=== PATIENT | male | born 1950 | race Caucasian/White ===

== ENCOUNTER 2019-05-03 23:34 | Observation (INO) ==
[2019-05-04 00:11] LABS: Basophils % 0.7 % (0.1-2.0); Eosinophils # 0.1 K/mm3 (0.0-0.4); Eosinophils % 2.1 % (0.1-12.0); Hematocrit 46.1 % (42.0-52.0); Hemoglobin 14.5 g/dL (14.1-18.0); Lymphocytes # 1.4 K/mm3 (0.7-4.5); Lymphocytes % 25.6 % (10-50); Mean Corpuscular HGB Conc 31.5 g/dL (31.8-35.4); Mean Corpuscular Volume 96.1 fl (80-94); Mean Platelet Volume 7.5 fl (7.4-10.4); Monocytes # 0.4 K/mm3 (0.1-1.0); Monocytes % 7.3 % (1.7-9.3); Neutrophils # 3.4 K/mm3 (1.8-7.8); Neutrophils % 64.3 % (37.0-80.0); Platelet Count 234 K/mm3 (142-424); Red Blood Count 4.79 M/mm3 (4.60-6.20); Red Cell Distribution Width 13.2 % (11.5-17.5); White Blood Count 5.3 K/mm3 (4.8-10.8)
--- NOTE | 2019-05-04 00:16 | Emergency Department Note ---
ED Disposition Clinical Impression: Lower gastrointestinal hemorrhage Disposition: Admitted as Observation Condition on Discharge: Good - Critical Care Critical Care Time: No Attestation: On 05/03/19, the high probability of a clinically significant, sudden or life threatening deterioration of the following system(s) required my full and direct attention, intervention and personal management. The time I documented below is in addition to time spent performing reported procedures but includes the following listed in this critical care notation. Medical Decision Making - Medical Records Medical records reviewed: Yes: I reviewed the patient's medical records. - Reza Inquiry Pt receiving controlled substance: No Vital Signs: 05/03/19 23:46 Temperature 98.2 F Temperature Source Oral Pulse Rate [Right] 79 Respiratory Rate 18 Blood Pressure [Right Arm] 160/96 H Blood Pressure Mean [Right Arm] 117 Blood Pressure Source [Right Arm] Automatic Cuff Blood Pressure Position [Right Arm] Supine 02 Sat by Pulse Oximetry 96 Oxygen Delivery Method Room Air - Lab Data Lab results reviewed: Yes: I reviewed the patient's lab results. Lab Results 05/03/19 23:54: Stool Occult Blood Negative 05/03/19 23:54: WBC 5.3, RBC 4.79, Hgb 14.5, Hct 46.1, MCV 96.1 H, MCH 30.2, MCHC 31.5 L, RDW 13.2, Plt Count 234, MPV 7.5, Neut % (Auto) 64.3, Lymph % (Auto) 25.6, [place] % (Auto) 7.3, Eos % (Auto) 2.1, Baso % (Auto) 0.7, Neut # (Auto) 3.4, Lymph # (Auto) 1.4, [place] # (Auto) 0.4, Eos # (Auto) 0.1, Baso # (Auto) 0.0 05/03/19 23:54: Sodium 138, Potassium 3.7, Chloride 101, Carbon Dioxide 30, Anion Gap 10.7, BUN 9, Creatinine 0.79, Estimated Creat Clear 62, Estimated GFR 97, Est GFR ( Amer) 117, Glucose 113 H, Calcium 9.2, Total Bilirubin 0.4, AST 34, ALT 48, Alkaline Phosphatase 96, Total Protein 7.1, Albumin 3.8, Globulin 3.3 H, Albumin/Globulin Ratio 1.2 Result diagrams: 05/03/19 23:54 05/03/19 23:54 Orders (Tests/Meds): ED MEDICATIONS Generic Name Dose Route Start Last Admin Trade Name Freq PRN Reason Stop Dose Admin Sodium Chloride 1,000 mls @ 999 mls/hr 05/03/19 23:45 05/04/19 00:02 Sod Chlor 0.9% 1000ml Bag IV 05/04/19 00:45 999 mls/hr .Q1H1M SEBASTIEN Administration Lactated Ringer's 1,000 mls @ 999 mls/hr 05/04/19 01:30 05/04/19 01:34 Lactated Ringer's 1000 Ml Bag IV 05/04/19 02:30 999 mls/hr .Q1H1M SEBASTIEN Administration Sodium Chloride 10 ml 05/04/19 01:28 Saline Flush 10ml Syringe IV 06/03/19 01:27 NEEDED PRN Maintain IV Site Discontinued Medications Generic Name Dose Route Start Last Admin Trade Name Freq PRN Reason Stop Dose Admin Diatrizoate Meglum/Diatrizoate Sod 30 ml 05/03/19 23:54 05/04/19 00:02 Gastrografin 66%-10% 30ml PO 05/03/19 23:55 30 ml ONCE ONE Administration Pantoprazole Sodium 40 mg 05/04/19 01:28 05/04/19 01:34 Protonix 40mg Vial IV 05/04/19 01:29 40 mg ONCE ONE Administration Sodium Chloride 8 ml 05/04/19 01:28 05/04/19 01:34 Saline Flush 10ml Syringe IV 05/04/19 01:29 8 ml ONCE ONE Administration ORDERS Category Date Time Status CT abdomen pelvis w con Stat Cat Scan 05/04/19 23:54 Ordered - CT Data CT Scan: Abdomen, Pelvis Time Received: 02:[address] Reviewed: Yes: I have viewed the radiologist's interpretation Preliminary Findings: Abnormal (see report ) - Physician Consults Physician Consulted: [email or web address] Reason -: Admission GI Bleed HPI - General Chief complaint: GI Bleed Stated complaint: Bleeding from rectum Time Seen by Provider: 05/04/19 00:00 Mode of Arrival: Ambulatory Source of Information: Patient, Medical Record Limitations: No Limitations Description of Symptoms (Recalled from ER Triage Doc. by RN): Pt states he is bleeding from his bowels started about 1 hour ago - History of Present Illness HPI Narrative: pt with crampy abd pain with brrb -hx of diverticulosis with last gi bleed about 1 yr ago complaint: gross hematochezia Onset (ago): hour(s) Consistency: intermittent Severity: moderate Context: history of GI bleed Associated symptoms: denies other symptoms Treatments Prior to Arrival: none - Related Data Home Medications Medication Instructions Recorded Confirmed Atorvastatin Calcium [Atorvastatin 20 mg PO HS 05/03/19 05/03/19 20mg Tab] Allergies Allergy/AdvReac Type Severity Reaction Status Date / Time ciprofloxacin [From CIPRO] Allergy Mild Verified 04/30/18 13:47 [facility] History - Hepatitis A Screen Drug use history?: No High risk sexual behaviors?: No History of sexually transmitted infection?: No Currently employed?: No Childcare worker?: No Do you have indoor plumbing?: Yes Do you have electricity?: Yes Attestation statement:: This patient has been screened for Hepatitis A risk factors. I have reviewed the patient's past medical history: Yes Medical History: Reports:: Cancer, Hypertension Denies:: Diabetes Mellitus Type 1, Diabetes Mellitus Type 2, Internal Pacemaker, Lung Disease, Seizures Other Medical History: Reports: Arthritis Other Surgeries: Yes: Colonoscopy, Colon Resection, Colostomy, Other. No: Pacemaker - Social History Smoking Status: Never smoker Alcohol Intake: never Alcohol Intake Frequency:: other Substance Use Type: denies use Occupational Status: retired Family Hx:: Diabetes, Hypertension ROS Obtained: Yes All systems reviewed & no additional complaints - Constitutional Constitutional: Denies fever(s) - Eyes Eyes: Denies change in vision - ENT Ears, Nose, Mouth, and Throat: Denies neck mass - Cardiovascular Cardiovascular: Denies chest pain - Respiratory Respiratory: No cough - Gastrointestinal Gastrointestingal: Reports: as per HPI, abdominal pain, bright red blood in stools, nausea, constant urge to pass stool - Genitourinary Male Genitourinary: Denies hematuria - Musculoskeletal Musculoskeletal: Denies joint pain - Integumentary/Breasts Skin/Breast: Denies rash - Neurologic Neurologic: Denies seizure-like activity Physical Exam - General General appearance: alert, in no apparent distress - Head Head exam: normocephalic - Eye Eye exam: Present: PERRL, EOMI - ENT ENT exam: Present: mucous membranes dry - Neck Neck exam: Present: trachea midline - Respiratory Respiratory exam: Absent: respiratory distress - Cardiovascular Cardiovascular exam: Present: regular rate, systolic murmur, +S4 - Abdominal Exam Abdominal exam: Present: soft, tenderness Abdominal tenderness: Present: epigastrium, moderate - exam: Present: normal inspection - Extremities Exam Extremities exam: Present: full ROM - Neurological Exam Neurological exam: Present: alert, oriented X3, CN II-XII intact - Psychiatric Psychiatric exam: Present: normal affect - Skin Skin exam: Absent: rash
[2019-05-04 00:34] LABS: Albumin Level 3.8 gm/dL (3.4-5.0); Albumin/Globulin Ratio 1.2 (1.1-1.8); Anion Gap 10.7 mEq/L (5-15); Bilirubin,Total 0.4 mg/dL (0.2-1.0); Calcium 9.2 mg/dL (8.5-10.1); Globulin 3.3 gm/dl (1.3-3.2); Total Protein,Serum 7.1 gm/dL (6.4-8.2)
[2019-05-04 07:08] LABS: Anion Gap 9.2 mEq/L (5-15); Calcium 8.3 mg/dL (8.5-10.1)
[2019-05-04 07:25] LABS: Basophils % 0.4 % (0.1-2.0); Eosinophils % 0.5 % (0.1-12.0); Hematocrit 37.7 % (42.0-52.0); Lymphocytes # 0.8 K/mm3 (0.7-4.5); Lymphocytes % 13.2 % (10-50); Mean Corpuscular HGB Conc 32.2 g/dL (31.8-35.4); Mean Corpuscular Volume 95.6 fl (80-94); Mean Platelet Volume 7.9 fl (7.4-10.4); Monocytes # 0.3 K/mm3 (0.1-1.0); Monocytes % 5.1 % (1.7-9.3); Neutrophils % 80.8 % (37.0-80.0); Platelet Count 193 K/mm3 (142-424); Red Blood Count 3.95 M/mm3 (4.60-6.20); Red Cell Distribution Width 13.3 % (11.5-17.5); White Blood Count 6.2 K/mm3 (4.8-10.8)
--- NOTE | 2019-05-04 07:28 | Pharmacy Consult Notes ---
[facility] Pharmacy VTE Monitoring - Patient Demographics Admission date: 05/04/19 Report Date: 05/04/19 Time: 07:28 Allergies/Adverse Reactions: Patient Allergies ciprofloxacin [From CIPRO] Allergy (Mild, Verified 04/30/18 13:47) Height: 1.65 m Weight: 63.304 kg Patient Problems: Current Active Problems (Updated 05/04/19 @ 02:40 by Scotty Portillo MD) Lower gastrointestinal hemorrhage (Acute) - VTE Risk Labs: VTE Related Lab Results Hgb 14.5 g/dL (14.1-18.0) 05/03/19 23:54 Hct 46.1 % (42.0-52.0) 05/03/19 23:54 Plt Count 234 K/mm3 (142-424) 05/03/19 23:54 BUN 8 mg/dL (7-18) 05/04/19 06:22 Creatinine 0.73 mg/dL (0.70-1.30) 05/04/19 06:22 Estimated Creat Clear 62 mL/min (50-200) 05/04/19 06:22 Was VTE Risk Assessment Performed: Yes VTE Score: 3 VTE Risk Level: Low Risk Clinical Trial Participant: No - Prophylaxis VTE Prophylaxis Ordered?: Yes Types of VTE Prophylaxis: TEDS Knee High
--- NOTE | 2019-05-04 08:27 | History & Physical Report ---
*Admission Date: 05/04/19 <Desiree Cui - 05/04/19 08:27> *Chief complaint: Rectal bleeding <Desiree Cui - 05/04/19 08:27> *History of present illness: HPI Rectal Bleeding Mr. Oliveira is a 68-year-old male patient of Dr. Bernardino Malcolm with a history of arthritis, and hyperlipidemia. He presented to [facility] emergency room last p.m. after experiencing bloody stools. He had some associated abdominal discomfort. He denies nausea and vomiting. In the emergency room patient was given 2 L bolus of IV fluids and started on IV Protonix. He was then admitted for further evaluation and treatment. Patient has a very long-standing history of intermittent rectal bleeding. In December 2006 he actually underwent colonoscopy at the [facility] to evaluate rectal bleeding and had a rectal polyp. He was admitted in July 2007 and I performed upper endoscopy and colonoscopy and he had some diverticulosis. In November 2010 he apparently underwent a low anterior resection with apparent coloanal anastomosis by Dr. Pollo Whitley for apparent rectal carcinoma. He did not have radiation. He did have a diverting loop ileostomy which was taken down several months later. He then developed an obstruction at the site of the loop ileostomy and Dr. Sy performed laparotomy in October 2011. He had subsequent colonoscopies by Dr. Sy. Dr. Lucas performed colonoscopy in November 2016 at which time he had a s errated adenoma. With follow-up by Dr. Lucas he is noted to have ongoing issues with his bowels with bowel irregularity with intermittent constipation and fecal urgency. Patient was usually been intolerant of any bowel regimen. Plan was tentatively for a follow-up colonoscopy in early 2018 due to the history of serrated adenoma on colonoscopy last November. However, on 03/20 patient had developed what he described as significant rectal bleeding. He had painless bleeding and had significant fresh looking blood on the tissue paper. He therefore went to the emergency department where he was evaluated. Stool PCR was negative. He had a CT scan which showed only postsurgical changes from his prior operations. Patient did relate that he had recently been taking Celebrex. He was referred for surgical evaluation. He had a repeat colonoscopy on 04/13/2018 which revealed some diverticulosis. He had a low coloanal anastomosis with visible staple line and palpable staple line approximately 3 cm from the anal verge as well as some internal hemorrhoids. There were no polyps. This a.m. patient is feeling somewhat better. He describes abdominal soreness. He has had no nausea or vomiting. He is unsure if his bowels have moved. Nursing staff states he did have a stool which was maroon in color. He is voiding without difficulty. <CuiDesiree 05/04/19 09:04> [facility] History Medical History: Reports:: Cancer (COLON), Hyperlipidemia, Hypertension Denies:: Atherosclerotic Heart Disease, Diabetes Mellitus Type 1, Diabetes Mellitus Type 2, Internal Pacemaker, Lung Disease, Seizures <Cui,Desiree 05/04/19 09:04> *Have you ever received a pneumonia vaccine?: Yes <SeeDesiree 05/04/19 08:27> *Have you received a flu vaccine this season?: Yes <SeeDesiree 05/04/19 08:27> Other Medical History: Reports: Arthritis <SeeDesiree 05/04/19 08:27> Other Surgeries: Yes: Appendectomy, Colonoscopy, Colon Resection, Colostomy, Other. No: Pacemaker <SeeDesiree 05/04/19 08:27> Amputation: No <Desiree Cui 05/04/19 08:27> Fractures: No <Desiree Cui 05/04/19 08:27> - *Social History Smoking Status: Never smoker <SeeDesiree 05/04/19 08:27> Alcohol Intake: never <Desiree Cui 05/04/19 08:27> Alcohol Intake Frequency:: other <Desiree Cui 05/04/19 08:27> Substance Use Type: denies use <Desiree Cui 05/04/19 08:27> *Occupational Status:: retired <Desiree Cui 05/04/19 08:27> *Travel in the last 8 weeks: None <Desiree Cui 05/04/19 08:27> - Psychiatric History Expresses thoughts of harming self/others: None <Desiree Cui 05/04/19 08:27> Suicide Plan Description: No Plan <Desiree Cui 05/04/19 08:27> Family Hx:: Diabetes, Hypertension <Desiree Cui - 05/04/19 08:27> Review of Systems - Constitutional Reports weight loss, Denies chills, Denies headache(s) <Desiree Ciu 05/04/19 09:04> - ENT Reports nasal congestion, Denies ear pain, Denies sore throat <SeeDesiree 05/04/19 09:04> - *Cardiovascular Denies chest pain, Denies shortness of breath <SeeDesiree 05/04/19 09:04> - *Respiratory Denies chest congestion, Denies cough, Denies shortness of breath <SeeDesiree 05/04/19 09:04> - *Genitourinary Denies difficulty urinating <Desiree Cui 05/04/19 09:04> - *Musculoskeletal Reports joint pain (Neck), Denies abnormal walking <Desiree Cui 05/04/19 09:04> - *Neurologic Reports dizziness, Denies abnormal walking, Denies seizure-like activity, Denies localized weakness, Denies seizure-like activity <Desiree Cui 05/04/19 09:04> Meds Home Medications Medication Instructions Recorded Confirmed Type Atorvastatin Calcium [Atorvastatin 20 mg PO HS 05/03/19 05/04/19 History 20mg Tab] Acetaminophen [Acetaminophen 325mg 650 mg PO Q6HP PRN 05/04/19 05/04/19 History tab] Calcium Carbonate/Vitamin D3 1 each PO DAILY 05/04/19 05/04/19 History [Calcium 500 + Vit D Caplet] Ergocalciferol (Vitamin D2) 400 unit PO DAILY 05/04/19 05/04/19 History [Vitamin D] Gluc [place]/Chondro [place] A/Vit C/Mn 1 each PO DAILY 05/04/19 05/04/19 History [Glucosamine Chondroitin Tab] Multivitamin [Daily Multiple 1 each PO DAILY 05/04/19 05/04/19 History Vitamin] Pumpkin Seed Oil/Saw [place] [Saw 320 mg PO DAILY 05/04/19 05/04/19 History [place] 160 mg Softgel] <Vladimir Barksdale - 05/04/19 09:59> Allergies Allergy/AdvReac Type Severity Reaction Status Date / Time ciprofloxacin [From CIPRO] Allergy Mild Verified 04/30/18 13:47 <Vladimir Barksdale - 05/04/19 09:59> Exam Vital signs and Labs for Last 24 Hours: Temp Pulse Resp BP Pulse Ox 98.6 F 72 18 140/91 H 95 05/04/19 08:00 05/04/19 08:00 05/04/19 08:00 05/04/19 08:00 05/04/19 08:48 Laboratory Results - last 24 hr 05/03/19 23:54: Stool Occult Blood Negative 05/03/19 23:54: WBC 5.3, RBC 4.79, Hgb 14.5, Hct 46.1, MCV 96.1 H, MCH 30.2, MCHC 31.5 L, RDW 13.2, Plt Count 234, MPV 7.5, Neut % (Auto) 64.3, Lymph % (Auto) 25.6, [place] % (Auto) 7.3, Eos % (Auto) 2.1, Baso % (Auto) 0.7, Neut # (Auto) 3.4, Lymph # (Auto) 1.4, [place] # (Auto) 0.4, Eos # (Auto) 0.1, Baso # (Auto) 0.0 05/03/19 23:54: Sodium 138, Potassium 3.7, Chloride 101, Carbon Dioxide 30, Anion Gap 10.7, BUN 9, Creatinine 0.79, Estimated Creat Clear 62, Estimated GFR 97, Est GFR ( Amer) 117, Glucose 113 H, Calcium 9.2, Total Bilirubin 0.4, AST 34, ALT 48, Alkaline Phosphatase 96, Total Protein 7.1, Albumin 3.8, Globulin 3.3 H, Albumin/Globulin Ratio 1.2 05/04/19 06:03: WBC 6.2, RBC 3.95 L, Hgb 12.2 L D, Hct 37.7 L, MCV 95.6 H, MCH 30.7, MCHC 32.2, RDW 13.3, Plt Count 193, MPV 7.9, Neut % (Auto) 80.8 H, Lymph % (Auto) 13.2, [place] % (Auto) 5.1, Eos % (Auto) 0.5, Baso % (Auto) 0.4, Neut # (Auto) 5.0, Lymph # (Auto) 0.8, [place] # (Auto) 0.3, Eos # (Auto) 0.0, Baso # (Auto) 0.0 05/04/19 06:22: Sodium 140, Potassium 4.2, Chloride 106, Carbon Dioxide 29, Anion Gap 9.2, BUN 8, Creatinine 0.73, Estimated Creat Clear 62, Estimated GFR 106, Est GFR ( Amer) 129, Glucose 95, Calcium 8.3 L <Vladimir Barksdale - 05/04/19 09:59> Temp Pulse Resp BP Pulse Ox 98.6 F 72 18 140/91 H 95 05/04/19 08:00 05/04/19 08:00 05/04/19 08:00 05/04/19 08:00 05/04/19 08:00 Laboratory Results - last 24 hr 05/03/19 23:54: Stool Occult Blood Negative 05/03/19 23:54: WBC 5.3, RBC 4.79, Hgb 14.5, Hct 46.1, MCV 96.1 H, MCH 30.2, MCHC 31.5 L, RDW 13.2, Plt Count 234, MPV 7.5, Neut % (Auto) 64.3, Lymph % (Auto) 25.6, [place] % (Auto) 7.3, Eos % (Auto) 2.1, Baso % (Auto) 0.7, Neut # (Auto) 3.4, Lymph # (Auto) 1.4, [place] # (Auto) 0.4, Eos # (Auto) 0.1, Baso # (Auto) 0.0 05/03/19 23:54: Sodium 138, Potassium 3.7, Chloride 101, Carbon Dioxide 30, Anion Gap 10.7, BUN 9, Creatinine 0.79, Estimated Creat Clear 62, Estimated GFR 97, Est GFR ( Amer) 117, Glucose 113 H, Calcium 9.2, Total Bilirubin 0.4, AST 34, ALT 48, Alkaline Phosphatase 96, Total Protein 7.1, Albumin 3.8, Globulin 3.3 H, Albumin/Globulin Ratio 1.2 05/04/19 06:03: WBC 6.2, RBC 3.95 L, Hct 37.7 L, MCV 95.6 H, MCH 30.7, MCHC 32.2, RDW 13.3, Plt Count 193, MPV 7.9, Neut % (Auto) 80.8 H, Lymph % (Auto) 13.2, [place] % (Auto) 5.1, Eos % (Auto) 0.5, Baso % (Auto) 0.4, Neut # (Auto) 5.0, Lymph # (Auto) 0.8, [place] # (Auto) 0.3, Eos # (Auto) 0.0, Baso # (Auto) 0.0 05/04/19 06:22: Sodium 140, Potassium 4.2, Chloride 106, Carbon Dioxide 29, Anion Gap 9.2, BUN 8, Creatinine 0.73, Estimated Creat Clear 62, Estimated GFR 106, Est GFR ( Amer) 129, Glucose 95, Calcium 8.3 L <Desiree Cui - 05/04/19 08:27> I & O for Last 24 hours: Intake & Output 05/01/19 05/02/19 05/03/19 05/04/19 11:59 11:59 11:59 11:59 Intake Total 1999 Output Total 250 / 250 Balance 1750 / 1750 Weight 139 lb 9 oz <Vladimir Barksdale Bernardino - 05/04/19 09:59> Intake & Output 05/01/19 05/02/19 05/03/19 05/04/19 11:59 11:59 11:59 11:59 Intake Total 1999 Balance 1999 Weight 139 lb 9 oz <Desiree Cui - 05/04/19 08:27> Radiology Reports for the Last 24 Hours: 05/04/2019 CT of the abdomen pelvis IMPRESSION: No acute abdominal or pelvic findings. <Desiree Cui - 05/04/19 09:04> - Constitutional no acute distress <Desiree Cui 05/04/19 09:04> - *Routine HEENT Exam Head: Present: normocephalic, atraumatic <Desiree Cui - 05/04/19 09:04> Eye: Present: PERRL. Absent: conjunctival icterus, scleral injection <Desiree Cui - 05/04/19 09:04> ENT: Present: mucous membranes moist, oropharynx clear <Desiree Cui 05/04/19 09:04> - *Routine Neck Exam Present: supple. Absent: carotid bruit, lymphadenopathy, thyromegaly <Cui,[facility] 05/04/19 09:04> - *Routine Respiratory Exam Present: CTA bilaterally (Anteriorly and posteriorly) <[facility] 05/04/19 09:04> - *Routine Cardiovascular Exam Present: RRR [facility]> - *Routine Abdominal Exam Present: soft, normoactive bowel sounds, tenderness (Epigastrium and lower quads or sore with palpation). Absent: distended, guarding <Cui,[facility] 05/04/19 09:04> - *Routine Extremities Exam Present: pulses intact. Absent: edema, calf tenderness <Cui,[facility] 05/04/19 09:04> - *Routine Neurological Exam Present: alert, oriented X3 <[facility] 05/04/19 09:04> Assessment and Plan (1) Lower gastrointestinal hemorrhage Current visit: Yes Status: Acute Category: Medical Code(s): K92.2 - Gastrointestinal hemorrhage, unspecified (2) Abdominal pain Current visit: Yes Status: Acute Category: Medical Code(s): R10.9 - Unspecified abdominal pain (3) Diverticulosis Current visit: Yes Status: Chronic Category: Medical Code(s): K57.90 - Diverticulosis of intestine, part unspecified, without perforation or abscess without bleeding <Vladimir Barksdale 05/04/19 09:59> (1) Lower gastrointestinal hemorrhage Current visit: Yes Status: Acute Category: Medical Code(s): K92.2 - Gastrointestinal hemorrhage, unspecified (2) Abdominal pain Current visit: Yes Status: Acute Category: Medical Code(s): R10.9 - Unspecified abdominal pain (3) Diverticulosis Current visit: Yes Status: Chronic Category: Medical Code(s): K57.90 - Diverticulosis of intestine, part unspecified, without perforation or abscess without bleeding <[facility] 05/04/19 08:56> - Assessment and plan all Dx Assessment and Plan for all problems:: Patient seen and examined. Concur with H&P and plan as outlined. <Vladimir Barksdale 05/04/19 09:59> Surgical consult. Will repeat H&H at 12 noon. If stable patient will probably be discharged. <Desiree Cui - 05/04/19 09:04>
[2019-05-04 08:52] LABS: Hemoglobin 12.2 g/dL (14.1-18.0)
--- NOTE | 2019-05-04 09:21 | Consult Report ---
*Admission Date: 05/04/19 *Reason for consult:: Rectal bleeding *History of present illness: Patient is very well-known to me. He has a very long-standing history of intermittent rectal bleeding for greater than a decade. In December 2006 he underwent colonoscopy at the [facility] to evaluate rectal bleeding and had a rectal polyp. He was admitted to [facility] in July 2007 and I performed upper endoscopy and colonoscopy and he had some diverticulosis. In November 2010 he apparently underwent a low anterior resection with apparent coloanal anastomosis by Dr. Pollo Whitley for apparent rectal carcinoma. He did not have radiation. He did have a diverting loop ileostomy which was taken down several months later in 2010. Dr. Sy performed laparotomy later that year in October 2011 due to patient developing bowel obstruction at loop ileostomy takedown site. He had subsequent colonoscopies by Dr. Sy. I had performed colonoscopy in November 2016 at which time he had a serrated adenoma. In March 2018 patient had developed what he described as significant painless rectal bleeding described as fresh looking blood on the tissue paper. He had yet another colonoscopy on 04/13/2018 which revealed some diverticulosis and minimal hemorroids. He had a low coloanal anastomosis with visible staple line and palpable staple line approximately 2-3 cm from the anal verge. There were no polyps. He presented to the emergency department last night with rectal bleeding. He denies any significant pain. He does describe some "uneasiness". This seems to be consistent with possible left lower quadrant cramping. Review of Systems - Review of Systems Review of systems:: pertinent systems reviewed and negative unless documented below - *Neurologic Reports dizziness, Denies abnormal walking, Denies seizure-like activity, Denies localized weakness, Denies headache(s), Denies seizure-like activity [facility] History Medical History: Reports:: Cancer (COLON), Hyperlipidemia, Hypertension Denies:: Atherosclerotic Heart Disease, Diabetes Mellitus Type 1, Diabetes Mellitus Type 2, Internal Pacemaker, Lung Disease, Seizures *Have you ever received a pneumonia vaccine?: Yes *Have you received a flu vaccine this season?: Yes Other Medical History: Reports: Arthritis Other Surgeries: Yes: Appendectomy, Colonoscopy, Colon Resection, Colostomy, Other. No: Pacemaker Amputation: No Fractures: No - *Social History Smoking Status: Never smoker Alcohol Intake: never Alcohol Intake Frequency:: other Substance Use Type: denies use *Occupational Status:: retired *Travel in the last 8 weeks: None - Psychiatric History Expresses thoughts of harming self/others: None Suicide Plan Description: No Plan Family Hx:: Diabetes, Hypertension Meds Home Medications Medication Instructions Recorded Confirmed Type Atorvastatin Calcium [Atorvastatin 20 mg PO HS 05/03/19 05/04/19 History 20mg Tab] Acetaminophen [Acetaminophen 325mg 650 mg PO Q6HP PRN 05/04/19 05/04/19 History tab] Calcium Carbonate/Vitamin D3 1 each PO DAILY 05/04/19 05/04/19 History [Calcium 500 + Vit D Caplet] Ergocalciferol (Vitamin D2) 400 unit PO DAILY 05/04/19 05/04/19 History [Vitamin D] Gluc [place]/Chondro [place] A/Vit C/Mn 1 each PO DAILY 05/04/19 05/04/19 History [Glucosamine Chondroitin Tab] Multivitamin [Daily Multiple 1 each PO DAILY 05/04/19 05/04/19 History Vitamin] Pumpkin Seed Oil/Saw [place] [Saw 320 mg PO DAILY 05/04/19 05/04/19 History [place] 160 mg Softgel] Allergies Allergy/AdvReac Type Severity Reaction Status Date / Time ciprofloxacin [From CIPRO] Allergy Mild Verified 04/30/18 13:47 Exam Vital signs and Labs for Last 24 Hours: Temp Pulse Resp BP Pulse Ox 98.6 F 72 18 140/91 H 95 05/04/19 08:00 05/04/19 08:00 05/04/19 08:00 05/04/19 08:00 05/04/19 08:48 Laboratory Results - last 24 hr 05/03/19 23:54: Stool Occult Blood Negative 05/03/19 23:54: WBC 5.3, RBC 4.79, Hgb 14.5, Hct 46.1, MCV 96.1 H, MCH 30.2, MCHC 31.5 L, RDW 13.2, Plt Count 234, MPV 7.5, Neut % (Auto) 64.3, Lymph % (Auto) 25.6, [place] % (Auto) 7.3, Eos % (Auto) 2.1, Baso % (Auto) 0.7, Neut # (Auto) 3.4, Lymph # (Auto) 1.4, [place] # (Auto) 0.4, Eos # (Auto) 0.1, Baso # (Auto) 0.0 05/03/19 23:54: Sodium 138, Potassium 3.7, Chloride 101, Carbon Dioxide 30, Anion Gap 10.7, BUN 9, Creatinine 0.79, Estimated Creat Clear 62, Estimated GFR 97, Est GFR ( Amer) 117, Glucose 113 H, Calcium 9.2, Total Bilirubin 0.4, AST 34, ALT 48, Alkaline Phosphatase 96, Total Protein 7.1, Albumin 3.8, Globulin 3.3 H, Albumin/Globulin Ratio 1.2 05/04/19 06:03: WBC 6.2, RBC 3.95 L, Hgb 12.2 L D, Hct 37.7 L, MCV 95.6 H, MCH 30.7, MCHC 32.2, RDW 13.3, Plt Count 193, MPV 7.9, Neut % (Auto) 80.8 H, Lymph % (Auto) 13.2, [place] % (Auto) 5.1, Eos % (Auto) 0.5, Baso % (Auto) 0.4, Neut # (Auto) 5.0, Lymph # (Auto) 0.8, [place] # (Auto) 0.3, Eos # (Auto) 0.0, Baso # (Auto) 0.0 05/04/19 06:22: Sodium 140, Potassium 4.2, Chloride 106, Carbon Dioxide 29, Anion Gap 9.2, BUN 8, Creatinine 0.73, Estimated Creat Clear 62, Estimated GFR 106, Est GFR ( Amer) 129, Glucose 95, Calcium 8.3 L I & O for Last 24 hours: Intake & Output 05/01/19 05/02/19 05/03/19 05/04/19 11:59 11:59 11:59 11:59 Intake Total 1999 Output Total 250 / 250 Balance 1750 / 1750 Weight 139 lb 9 oz - *Routine HEENT Exam Head: Present: normocephalic Eye: Present: EOMI, PERRL ENT: Present: mucous membranes moist - *Routine Neck Exam Present: supple. Absent: lymphadenopathy - *Routine Respiratory Exam Present: CTA bilaterally - *Routine Cardiovascular Exam Present: RRR - *Routine Abdominal Exam Present: soft, normoactive bowel sounds. Absent: tenderness - *Routine Rectal Exam Comments: Rectal examination reveals some gross maroon blood at the anus. Digital examination reveals markedly diminished sphincter tone which is patient's baseline due to prior surgery. There are no palpable masses. There is some maroon liquid stool noted digitally. - *Routine Extremities Exam Absent: cyanosis, clubbing, edema - *Routine Skin Exam Present: warm. Absent: rash - *Routine Neurological Exam Present: alert, oriented X3 - Detailed Eye Exam Eyelids: Left normal inspection Results - Labs 05/04/19 06:03 05/04/19 06:22 Laboratory Results - last 24 hr 05/03/19 23:54: Stool Occult Blood Negative 05/03/19 23:54: WBC 5.3, RBC 4.79, Hgb 14.5, Hct 46.1, MCV 96.1 H, MCH 30.2, MCHC 31.5 L, RDW 13.2, Plt Count 234, MPV 7.5, Neut % (Auto) 64.3, Lymph % (Auto) 25.6, [place] % (Auto) 7.3, Eos % (Auto) 2.1, Baso % (Auto) 0.7, Neut # (Auto) 3.4, Lymph # (Auto) 1.4, [place] # (Auto) 0.4, Eos # (Auto) 0.1, Baso # (Auto) 0.0 05/03/19 23:54: Sodium 138, Potassium 3.7, Chloride 101, Carbon Dioxide 30, Anion Gap 10.7, BUN 9, Creatinine 0.79, Estimated Creat Clear 62, Estimated GFR 97, Est GFR ( Amer) 117, Glucose 113 H, Calcium 9.2, Total Bilirubin 0.4, AST 34, ALT 48, Alkaline Phosphatase 96, Total Protein 7.1, Albumin 3.8, Globu brady 3.3 H, Albumin/Globulin Ratio 1.2 05/04/19 06:03: WBC 6.2, RBC 3.95 L, Hgb 12.2 L D, Hct 37.7 L, MCV 95.6 H, MCH 30.7, MCHC 32.2, RDW 13.3, Plt Count 193, MPV 7.9, Neut % (Auto) 80.8 H, Lymph % (Auto) 13.2, [place] % (Auto) 5.1, Eos % (Auto) 0.5, Baso % (Auto) 0.4, Neut # (Auto) 5.0, Lymph # (Auto) 0.8, [place] # (Auto) 0.3, Eos # (Auto) 0.0, Baso # (Auto) 0.0 05/04/19 06:22: Sodium 140, Potassium 4.2, Chloride 106, Carbon Dioxide 29, Anion Gap 9.2, BUN 8, Creatinine 0.73, Estimated Creat Clear 62, Estimated GFR 106, Est GFR ( Amer) 129, Glucose 95, Calcium 8.3 L Assessment and Plan (1) Lower gastrointestinal hemorrhage Current visit: Yes Status: Acute Category: Medical Code(s): K92.2 - Gastrointestinal hemorrhage, unspecified (2) Abdominal pain Current visit: Yes Status: Acute Category: Medical Code(s): R10.9 - Unspecified abdominal pain (3) Diverticulosis Current visit: Yes Status: Chronic Category: Medical Code(s): K57.90 - Diverticulosis of intestine, part unspecified, without perforation or abscess without bleeding - Assessment and plan all Dx Assessment and Plan for all problems:: Patient does feel somewhat better since admission. I would plan for expectant observant management at this time. I will go ahead and give him a clear liquid diet. If he shows no additional signs of rectal bleeding he possibly may be able to be discharged for outpatient follow-up as early as this afternoon or by tomorrow morning. However, if he has ongoing bleeding he may require further inpatient observation. I would not pursue urgent colonoscopy at this time as an inpatient.
[2019-05-04 12:48] LABS: Hematocrit 37.7 % (42.0-52.0); Hemoglobin 11.9 g/dL (14.1-18.0)
--- NOTE | 2019-05-04 16:12 | Progress Note ---
Subjective Patient reports: no new complaints Narrative: Patient has had a couple of more bloody bowel movements today. Exam Vital signs and Labs for Last 24 Hours: Temp Pulse Resp BP Pulse Ox 98.5 F 65 18 136/90 97 05/04/19 16:00 05/04/19 16:00 05/04/19 16:00 05/04/19 16:00 05/04/19 16:00 Laboratory Results - last 24 hr 05/03/19 23:54: Stool Occult Blood Negative 05/03/19 23:54: WBC 5.3, RBC 4.79, Hgb 14.5, Hct 46.1, MCV 96.1 H, MCH 30.2, MCHC 31.5 L, RDW 13.2, Plt Count 234, MPV 7.5, Neut % (Auto) 64.3, Lymph % (Auto) 25.6, [place] % (Auto) 7.3, Eos % (Auto) 2.1, Baso % (Auto) 0.7, Neut # (Auto) 3.4, Lymph # (Auto) 1.4, [place] # (Auto) 0.4, Eos # (Auto) 0.1, Baso # (Auto) 0.0 05/03/19 23:54: Sodium 138, Potassium 3.7, Chloride 101, Carbon Dioxide 30, Anion Gap 10.7, BUN 9, Creatinine 0.79, Estimated Creat Clear 62, Estimated GFR 97, Est GFR ( Amer) 117, Glucose 113 H, Calcium 9.2, Total Bilirubin 0.4, AST 34, ALT 48, Alkaline Phosphatase 96, Total Protein 7.1, Albumin 3.8, Globulin 3.3 H, Albumin/Globulin Ratio 1.2 05/04/19 06:03: WBC 6.2, RBC 3.95 L, Hgb 12.2 L D, Hct 37.7 L, MCV 95.6 H, MCH 30.7, MCHC 32.2, RDW 13.3, Plt Count 193, MPV 7.9, Neut % (Auto) 80.8 H, Lymph % (Auto) 13.2, [place] % (Auto) 5.1, Eos % (Auto) 0.5, Baso % (Auto) 0.4, Neut # (Auto) 5.0, Lymph # (Auto) 0.8, [place] # (Auto) 0.3, Eos # (Auto) 0.0, Baso # (Auto) 0.0 05/04/19 06:22: Sodium 140, Potassium 4.2, Chloride 106, Carbon Dioxide 29, Anion Gap 9.2, BUN 8, Creatinine 0.73, Estimated Creat Clear 62, Estimated GFR 106, Est GFR ( Amer) 129, Glucose 95, Calcium 8.3 L 05/04/19 12:30: Hgb 11.9 L, Hct 37.7 L I & O for Last 24 hours: Intake & Output 05/02/19 05/03/19 05/04/19 05/05/19 11:59 11:59 11:59 11:59 Intake Total 1999 / 1999 720 / 720 Output Total 650 / 650 250 / 250 Balance 1350 / 1350 470 / 470 Weight 139 lb 8.983 oz - *Routine Abdominal Exam Present: soft Progress Note: A&P (1) Lower gastrointestinal hemorrhage Status: Acute Current Visit: Yes (2) Abdominal pain Status: Acute Current Visit: Yes (3) Diverticulosis Status: Chronic Current Visit: Yes Assessment and Plan for All Diagnoses:: His hemoglobin has been stable today. Okay to cautiously advance diet tonight. If he remains stable he may but will be discharged tomorrow for continued outpatient follow-up. He may require follow-up colonoscopy, however, colonoscopy 1 year ago revealed only minimal internal hemorrhoids and some diverticulosis. Due to the character of the blood, maroon-colored, he may require outpatient small bowel evaluation for potential intermittent source of blood loss.
[2019-05-04 18:36] LABS: Hematocrit 36.5 % (42.0-52.0); Hemoglobin 11.2 g/dL (14.1-18.0)
[2019-05-05 07:40] LABS: Basophils % 0.4 % (0.1-2.0); Eosinophils # 0.1 K/mm3 (0.0-0.4); Eosinophils % 1.1 % (0.1-12.0); Hematocrit 38.4 % (42.0-52.0); Hemoglobin 12.2 g/dL (14.1-18.0); Lymphocytes # 0.8 K/mm3 (0.7-4.5); Lymphocytes % 15.1 % (10-50); Mean Corpuscular HGB Conc 31.8 g/dL (31.8-35.4); Mean Corpuscular Volume 95.5 fl (80-94); Mean Platelet Volume 8.1 fl (7.4-10.4); Monocytes # 0.3 K/mm3 (0.1-1.0); Monocytes % 5.7 % (1.7-9.3); Neutrophils # 3.9 K/mm3 (1.8-7.8); Neutrophils % 77.7 % (37.0-80.0); Platelet Count 205 K/mm3 (142-424); Red Blood Count 4.03 M/mm3 (4.60-6.20); Red Cell Distribution Width 13.3 % (11.5-17.5)
--- NOTE | 2019-05-05 08:34 | Progress Note ---
Subjective Patient reports: no new complaints (Some "clot" passed with last bowel movement) Exam Vital signs and Labs for Last 24 Hours: Temp Pulse Resp BP Pulse Ox 97.9 F 80 18 111/70 97 05/05/19 07:45 05/05/19 07:45 05/05/19 07:45 05/05/19 07:45 05/05/19 07:45 Laboratory Results - last 24 hr 05/04/19 06:03: Hgb 12.2 L D 05/04/19 12:30: Hgb 11.9 L, Hct 37.7 L 05/04/19 18:23: Hgb 11.2 L, Hct 36.5 L 05/05/19 05:19: WBC 5.0, RBC 4.03 L, Hgb 12.2 L, Hct 38.4 L, MCV 95.5 H, MCH 30.3, MCHC 31.8, RDW 13.3, Plt Count 205, MPV 8.1, Neut % (Auto) 77.7, Lymph % (Auto) 15.1, [place] % (Auto) 5.7, Eos % (Auto) 1.1, Baso % (Auto) 0.4, Neut # (Auto) 3.9, Lymph # (Auto) 0.8, [place] # (Auto) 0.3, Eos # (Auto) 0.1, Baso # (Auto) 0.0 I & O for Last 24 hours: Intake & Output 05/02/19 05/03/19 05/04/19 05/05/19 11:59 11:59 11:59 11:59 Intake Total 1999 / 1999 2519 / 2519 Output Total 650 / 650 550 / 550 Balance 1350 / 1350 1968 / 1968 Weight 139 lb 8.983 oz 130 lb 6 oz - Constitutional no acute distress - *Routine Respiratory Exam Absent: respiratory distress - *Routine Cardiovascular Exam Present: RRR Progress Note: A&P (1) Lower gastrointestinal hemorrhage Status: Acute Assessment and plan: No sign of active hemorrhage. Hemoglobin improved this morning. Source still undefined. Okay for discharge home from surgical standpoint with close outpatient follow-up [Dr. Lucas]. Ongoing management likely to include evaluation for possible "upper source". Would continue proton pump inhibitor and consider adding Carafate until evaluation regarding possible "upper source" complete. Current Visit: Yes (2) Abdominal pain Status: Acute Current Visit: Yes (3) Diverticulosis Status: Chronic Current Visit: Yes
--- NOTE | 2019-05-05 11:44 | Progress Note ---
Internal Medicine - PN: Subj *Date: 05/05/19 *Time: 11:42 Interval history: The patient is interviewed in the chart is reviewed. Surgical notes are reviewed. The patient reports that he still has some bloody stool. His H&H appears stable at this point, however. He is cleared surgically for discharge. The patient does seem a little concerned about discharge and states that he will return if his bloody bowel movement increases. Exam Vital signs and Labs for Last 24 Hours: Temp Pulse Resp BP Pulse Ox 97.9 F 80 18 111/70 97 05/05/19 07:45 05/05/19 07:45 05/05/19 07:45 05/05/19 07:45 05/05/19 07:45 Laboratory Results - last 24 hr 05/04/19 12:30: Hgb 11.9 L, Hct 37.7 L 05/04/19 18:23: Hgb 11.2 L, Hct 36.5 L 05/05/19 05:19: WBC 5.0, RBC 4.03 L, Hgb 12.2 L, Hct 38.4 L, MCV 95.5 H, MCH 30.3, MCHC 31.8, RDW 13.3, Plt Count 205, MPV 8.1, Neut % (Auto) 77.7, Lymph % (Auto) 15.1, [place] % (Auto) 5.7, Eos % (Auto) 1.1, Baso % (Auto) 0.4, Neut # (Auto) 3.9, Lymph # (Auto) 0.8, [place] # (Auto) 0.3, Eos # (Auto) 0.1, Baso # (Auto) 0.0 I & O for Last 24 hours: Intake & Output 05/02/19 05/03/19 05/04/19 05/05/19 11:59 11:59 11:59 11:59 Intake Total 1999 2519 / 2519 Output Total 650 / 650 550 / 550 Balance 1350 / 1350 1968 / 1968 Weight 139 lb 8.983 oz 130 lb 6 oz - Constitutional no acute distress - *Routine HEENT Exam Head: Present: normocephalic Eye: Present: PERRL ENT: Present: mucous membranes moist - *Routine Respiratory Exam Present: CTA bilaterally - *Routine Cardiovascular Exam Present: RRR - *Routine Abdominal Exam Present: soft, normoactive bowel sounds, surgical scars. Absent: tenderness - *Routine Rectal Exam Comments: Not done - *Routine Extremities Exam Absent: edema - *Routine Neurological Exam Present: alert, oriented X3 Assessment and Plan (1) Lower gastrointestinal hemorrhage Current visit: Yes Status: Acute Category: Medical Code(s): K92.2 - Gastrointestinal hemorrhage, unspecified (2) Abdominal pain Current visit: Yes Status: Acute Category: Medical Code(s): R10.9 - Unspecified abdominal pain (3) Diverticulosis Current visit: Yes Status: Chronic Category: Medical Code(s): K57.90 - Diverticulosis of intestine, part unspecified, without perforation or abscess without bleeding - Assessment and plan all Dx Assessment and Plan for all problems:: Will discharge to home. Sucralfate will be added to his regimen. See med list.
--- NOTE | 2019-05-05 21:15 | Discharge Summary ---
General - General Admission date:: 05/04/19 Discharge date: 05/05/19 HPI HPI: Mr. Owen is a 68-year-old male patient of Dr. Bernardino Barksdale with a history of arthritis, and hyperlipidemia. He presented to [facility] emergency room after experiencing bloody stools. He had some associated abdominal discomfort. He denies nausea and vomiting. In the emergency room, the patient was given a 2 L bolus of IV fluids and started on IV Protonix. He was then admitted for further evaluation and treatment. Patient has a very long-standing history of intermittent rectal bleeding. In December 2006 he actually underwent colonoscopy at the [facility] to evaluate rectal bleeding and had a rectal polyp. He was admitted in July 2007 and had an upper endoscopy and colonoscopy and he had some diverticulosis. In November 2010, he apparently underwent a low anterior resection with apparent coloanal anastomosis by Dr. Pollo Whitley for apparent rectal carcinoma. He did not have radiation. He did have a diverting loop ileostomy which was taken down several months later. He then developed an obstruction at the site of the loop ileostomy and Dr. Sy performed laparotomy in October 2011. He had subsequent colonoscopies by Dr. Sy. Dr. Lucas performed a colonoscopy in November 2016 at which time he had a serrated adenoma. With follow-up by Dr. Lucas, he was noted to have ongoing issues with his bowels with bowel irregularity with intermittent constipation and fecal urgency. Patient has usually been intolerant of any bowel regimen. Plan was tentatively for a follow-up colonoscopy in early 2018 due to the history of serrated adenoma on colonoscopy last November, however, on 03/20, the patient had developed what he described as significant rectal bleeding. He had painless bleeding and had significant fresh looking blood on the tissue paper. He therefore went to the emergency department where he was evaluated. Stool PCR was negative. He had a CT scan which showed only postsurgical changes from his prior operations. Patient did relate that he had recently been taking Celebrex. He was referred for surgical evaluation. He had a repeat colonoscopy on 04/13/2018 which revealed some diverticulosis. He had a low coloanal anastomosis with visible staple line and palpable staple line approximately 3 cm from the anal verge as well as some internal hemorrhoids. There were no polyps. Hospital Course Hospital Course: The patient had some abdominal soreness but no nausea or vomiting. He continued to have some stools that were maroon in color. The CT of his abdomen and pelvis showed nothing acute. Surgery was consulted and his H&H was monitored. His diet was advanced. He was seen by Dr. Lucas who wanted to plan for expectant observant management. He did not want to pursue urgent colonoscopy. The patient had a few more bloody bowel movements. His hemoglobin however, was stable. His diet continued to be advanced. Dr. Lucas felt he may require outpatient small bowel evaluation for potential intermittent source of blood loss. Dr. Sow did see the patient for Dr. Lucas and his hemoglobin was improving. He had no signs of active hemorrhage. Dr. Sow felt he could be discharged home with close outpatient follow-up. He felt he would need to be continued on PPIs and possibly Carafate as well. He was stable to be discharged home. Objective Vital signs: Temp Pulse Resp BP Pulse Ox 97.9 F 80 18 111/70 97 05/05/19 07:45 05/05/19 07:45 05/05/19 07:45 05/05/19 07:45 05/05/19 07:45 Narrative: No acute abdominal or pelvic findings. - Constitutional no acute distress - *Routine HEENT Exam Head: Present: normocephalic, atraumatic Eye: Present: PERRL. Absent: conjunctival icterus, scleral injection ENT: Present: mucous membranes moist, oropharynx clear - *Routine Neck Exam Present: supple. Absent: carotid bruit, lymphadenopathy, thyromegaly - *Routine Respiratory Exam Present: CTA bilaterally (Anteriorly and posteriorly) - *Routine Cardiovascular Exam Present: RRR - *Routine Abdominal Exam Present: soft, normoactive bowel sounds, tenderness (Epigastrium and lower quads or sore with palpation). Absent: distended, guarding - *Routine Extremities Exam Present: pulses intact. Absent: edema, calf tenderness - *Routine Neurological Exam Present: alert, oriented X3 Results Labs on day of discharge: Labs from last 24 hours 05/05/19 05:19 WBC 5.0 RBC 4.03 L Hgb 12.2 L Hct 38.4 L MCV 95.5 H MCH 30.3 MCHC 31.8 RDW 13.3 Plt Count 205 MPV 8.1 Neut % (Auto) 77.7 Lymph % (Auto) 15.1 [place] % (Auto) 5.7 Eos % (Auto) 1.1 Baso % (Auto) 0.4 Neut # (Auto) 3.9 Lymph # (Auto) 0.8 [place] # (Auto) 0.3 Eos # (Auto) 0.1 Baso # (Auto) 0.0 DS: Diagnosis - Discharge Diagnosis (1) Lower gastrointestinal hemorrhage Status: Acute (2) Abdominal pain Status: Acute (3) Diverticulosis Status: Chronic Discharge Plan - Patient Discharge Instructions ACTIVITY: Limited activity DIET: advance to your usual diet Patient Instructions: DI for Gastrointestinal Bleeding - Follow up Plan Follow up with: Vladimir Barksdale MD [Primary Care Provider] - 05/09/19 Disposition: Home, Self-Custodial Medications: Home Medications Medication Instructions Recorded Confirmed Type Atorvastatin Calcium [Atorvastatin 20 mg PO HS 05/03/19 05/04/19 History 20mg Tab] Acetaminophen [Acetaminophen 325mg 650 mg PO Q6HP PRN 05/04/19 05/04/19 History tab] Calcium Carbonate/Vitamin D3 1 each PO DAILY 05/04/19 05/04/19 History [Calcium 500 + Vit D Caplet] Ergocalciferol (Vitamin D2) 400 unit PO DAILY 05/04/19 05/04/19 History [Vitamin D] Gluc [place]/Chondro [place] A/Vit C/Mn 1 each PO DAILY 05/04/19 05/04/19 History [Glucosamine Chondroitin Tab] Multivitamin [Daily Multiple 1 each PO DAILY 05/04/19 05/04/19 History Vitamin] Pumpkin Seed Oil/Saw [place] [Saw 320 mg PO DAILY 05/04/19 05/04/19 History [place] 160 mg Softgel] Omeprazole [Omeprazole 40mg 40 mg PO DAILY #30 cap 05/05/19 Rx Capsule] Sucralfate [Sucralfate 1gm 2 gm PO BID #120 tab 05/05/19 Rx Tab] Prescriptions/Medication Reconciliation: New Omeprazole [Omeprazole 40mg Capsule] 40 mg PO DAILY #30 cap Sucralfate [Sucralfate 1gm Tab] 2 gm PO BID #120 tab Continued Gluc [place]/Chondro [place] A/Vit C/Mn [Glucosamine Chondroitin Tab] 1 each PO DAILY Ergocalciferol (Vitamin D2) [Vitamin D] 400 unit PO DAILY Calcium Carbonate/Vitamin D3 [Calcium 500 + Vit D Caplet] 1 each PO DAILY Acetaminophen [Acetaminophen 325mg tab] 650 mg PO Q6HP PRN PRN Reason: As Needed For Fever Or Pain Atorvastatin Calcium [Atorvastatin 20mg Tab] 20 mg PO HS Pumpkin Seed Oil/Saw [place] [Saw [place] 160 mg Softgel] 320 mg PO DAILY Multivitamin [Daily Multiple Vitamin] 1 each PO DAILY
== END 2019-05-05 13:55 | disposition home or self-care (01) ==
LOC: ER 23:34 → 2ND 23:34
PROVIDERS: ADMIT Family Medicine; ATTEND Family Medicine
CPT/HCPCS: 36415; 74177; 80048; 80053; 82272; 85014; 85018; 85025; 96365; 96366; 96375; 99284; G0328; G0378; Q9967

== ENCOUNTER → 2019-05-13 09:31 | Outpatient (CLI) | payer MEDICARE, OTHER, SELFPAY ==
[2019-05-13 09:55] LABS: Basophils % 0.4 % (0.1-2.0); Eosinophils # 0.1 K/mm3 (0.0-0.4); Eosinophils % 0.8 % (0.1-12.0); Hematocrit 37.6 % (42.0-52.0); Hemoglobin 11.8 g/dL (14.1-18.0); Lymphocytes # 0.8 K/mm3 (0.7-4.5); Lymphocytes % 11.9 % (10-50); Mean Corpuscular HGB Conc 31.4 g/dL (31.8-35.4); Mean Corpuscular Hemoglobin 28.7 pg (27.0-31.2); Mean Corpuscular Volume 91.3 fl (80-94); Mean Platelet Volume 8.2 fl (7.4-10.4); Monocytes # 0.3 K/mm3 (0.1-1.0); Monocytes % 4.7 % (1.7-9.3); Neutrophils # 5.5 K/mm3 (1.8-7.8); Neutrophils % 82.2 % (37.0-80.0); Platelet Count 286 K/mm3 (142-424); Red Blood Count 4.12 M/mm3 (4.60-6.20); Red Cell Distribution Width 13.3 % (11.5-17.5); White Blood Count 6.7 K/mm3 (4.8-10.8)
== END ==
PROVIDERS: Visit Provider Surgery
DX: K92.2 Gastrointestinal hemorrhage, unspecified (principal)
CPT/HCPCS: 36415; 85025

== ENCOUNTER → 2019-10-03 14:53 | Outpatient (CLI) | payer MEDICARE, SELFPAY ==
[2019-10-03 20:16] LABS: Alanine Aminotransferase 32 U/L (12-78); Albumin Level 3.9 gm/dL (3.4-5.0); Albumin/Globulin Ratio 1.3 (1.1-1.8); Alkaline Phosphatase 83 U/L (46-116); Amylase 57 U/L (25-115); Anion Gap 11.7 mEq/L (5-15); Aspartate Amino Transferase 29 U/L (15-37); Bilirubin,Total 0.4 mg/dL (0.2-1.0); Blood Urea Nitrogen 10 mg/dL (7-18); Calcium 9.2 mg/dL (8.5-10.1); Carbon Dioxide 31 mmol/L (21.0-32.0); Chloride 98 mmol/L (98-107); Creatinine,Serum 0.93 mg/dL (0.70-1.30); Estimated Glomerular Filt Rate 80 ml/min (>60); GFR (African American) 97 ML/MIN (>60); Globulin 3.1 gm/dl (1.3-3.2); Glucose 118 mg/dL (74-106); Lipase 76 u/L (73-393); Potassium 3.7 mmoL/L (3.5-5.1); Sodium 137 mmol/L (136-145)
== END ==
PROVIDERS: Visit Provider Family Medicine
DX: R10.84 Generalized abdominal pain (principal); Z01.818 Encounter for other preprocedural examination
CPT/HCPCS: 36415; 80053; 82150; 82565; 83690; 84520

== ENCOUNTER → 2019-10-04 08:29 | Outpatient (CLI) | payer MEDICARE, SELFPAY ==
--- NOTE | 2019-10-04 08:52 | CT_ITS ---
PROCEDURE: CT ABDOMEN PELVIS WO/W CON CLINICAL INDICATION: DIFFUSE ABD PAIN Periumbilical pain COMPARISON: ABDPELW CT ABD PELVIS W/ CONTRAST from 09/07/[address] abdomen pelvis w con from 05/04/2019 TECHNIQUE: IV Contrast: 75ML OPTIRAY 350 Oral Contrast 20ml Gastroview Axial images obtained with sagittal and coronal reformats. All CT scans at the facility use one or more dose reduction, viz: automated exposure control, ma/kV adjustment per patient size (including targeted exams where dose is matched to indication, i.e. head), or iterative reconstruction technique. FINDINGS: LOWER THORAX: Scattered fibrotic changes are present in the lung bases. ABDOMEN & PELVIS: The liver, gallbladder, spleen, and adrenal glands have an unremarkable appearance. There is a small lymph node medial to the lesser curvature of the stomach at approximately 1.3 cm. The pancreas has an unremarkable appearance. No renal or ureteral calculi. No hydronephrosis.. No free air. Prior appendectomy. There is mild prominence of the small bowel loops in the mid abdominal region.. Mildly prominent small bowel loops are present in the mid abdominal region. No obvious transition point. No pelvic mass abnormal fluid collection or focal inflammatory change of the pelvis. Surgical clips are present at the rectal region with mild thickening of the presacral fat noted not significantly changed. There is mild prominence of the prostate at 4.8 cm. No focal bony anomalies are evident. IMPRESSION: 1. Mildly prominent small bowel loops in the mid abdominal region nonspecific. No obvious transition point. Possible ileus or enteritis. Partial obstruction not completely excluded. 2. Otherwise negative CT abdomen and pelvis Dictated by: Melo Cunningham MD 10/05/2019 13:34 Electronically signed by Melo Cunninhgam MD in [place] 10/05/2019 13:34
== END ==
PROVIDERS: PCP Family Medicine; Visit Provider Emergency Medicine
DX: R10.84 Generalized abdominal pain (principal)
CPT/HCPCS: 74177; 74178; Q9967

== ENCOUNTER → 2019-12-19 11:10 | Outpatient (POV) | payer MEDICARE, SELFPAY | PROVIDERS: PCP Family Medicine; Visit Provider Nurse Practitioner Family | DX: Z00.00 Encounter for general adult medical examination without abnormal findings (principal) ==

== ENCOUNTER → 2019-12-22 09:27 | Outpatient (CLI) | payer MEDICARE, SELFPAY ==
--- NOTE | 2019-12-22 09:35 | FL_ITS ---
PROCEDURE: FL SMALL BOWEL FOLLOW THROUGH CLINICAL INDICATION: ALTERED BOWEL FUNCTION,CONSTIPATION,DIARRHEA,ABD PAIN, History of colon cancer with resection 2010 COMPARISON: No exams were available for comparison TECHNIQUE: FLUOROSCOPY TIME : 48 seconds FINDINGS: Squaring Shear Operator image demonstrates no acute finding with a non-specific gas pattern. The progress of oral barium was followed across the small intestine to the colon. There was visualization of the colon an approximately 30 minutes. Small intestinal loops are of normal caliber and fold thickness. Some non persistent rounded filling defects consistent with swallowed air are noted. No persistent strictures filling defects or masses are apparent. Normal peristalsis was seen under fluoroscopy. Terminal ileum has a normal appearance. IMPRESSION: Exam is within normal limits. Dictated by: Eder Rosa 12/22/2019 11:10 Electronically signed by Eder Rosa in [place] 12/22/2019 11:10
== END ==
PROVIDERS: PCP Family Medicine; Visit Provider Nurse Practitioner Family
DX: R10.84 Generalized abdominal pain (principal); R19.4 Change in bowel habit
CPT/HCPCS: 74250

== ENCOUNTER → 2020-05-21 08:41 | Outpatient (POV) | payer MEDICARE, SELFPAY | PROVIDERS: PCP Family Medicine; Visit Provider Nurse Practitioner Family | DX: Z00.00 Encounter for general adult medical examination without abnormal findings (principal) ==

== ENCOUNTER → 2020-08-20 09:13 | Outpatient (POV) | payer MEDICARE, SELFPAY | PROVIDERS: Visit Provider Nurse Practitioner Family | DX: Z00.00 Encounter for general adult medical examination without abnormal findings (principal) ==

== ENCOUNTER → 2020-11-26 09:45 | Outpatient (POV) | payer MEDICARE, SELFPAY | PROVIDERS: Visit Provider Nurse Practitioner Family | DX: Z00.00 Encounter for general adult medical examination without abnormal findings (principal) ==

== ENCOUNTER → 2021-05-17 08:14 | Outpatient (CLI) | payer MEDICARE, SELFPAY | PROVIDERS: Visit Provider Internal Medicine Gastroenterology | DX: Z01.812 Encounter for preprocedural laboratory examination (principal); Z20.822 Contact with and (suspected) exposure to COVID-19; Z12.11 Encounter for screening for malignant neoplasm of colon | CPT/HCPCS: U0003 ==

== ENCOUNTER 2021-05-20 06:47 | Day surgery (SDC) | payer MEDICARE, SELFPAY ==
[2021-05-14 14:02] VITALS: BMI 22.2
[2021-05-20 07:10] VITALS: BP 168/86; PULSE 87; RESP 20; TEMP 36.5; O2SAT 97
--- NOTE | 2021-05-20 07:32 | HMH.ANESCL ---
[facility] Anesthesia Checklist - Patient Identification Patient Identification: Arm Band - Structural Data Admitted From: Home Planned Operative Procedure/s: Colonoscopy Consent for Planned Operative Procedure(s) Verified: Yes - NPO Status Verified Time NPO: 00:00 - Additional verifications Anesthesia Reactions: No Hx Blood Transfusions: No Blood Transfusion Reaction: No - Airway Assessment C-Spine Mobility Assessed: Yes TMJ Mobility Assessed: Yes Dentition: Edentulous - Neurological Assessment Level of Consciousness: Awake Hx Seizures: No Numbness or tingling in extremities: No - Anesthesia Plan Anesthesia Risk discussed: Yes Anesthesia Plan: Verified ASA Class: II Anesthesia Type: MAC [facility] History Medical History: Reports:: Cancer (colon), Hyperlipidemia, Hypertension Denies:: Atherosclerotic Heart Disease, Diabetes Mellitus Type 1, Diabetes Mellitus Type 2, Internal Pacemaker, Lung Disease, MRSA, Seizures *Have you ever received a pneumonia vaccine?: Yes *Have you received a flu vaccine this season?: Yes Other Medical History: Reports: Arthritis. Denies: Blood Transfusion Reaction Anesthesia experience/problems:: None Other Surgeries: Yes: Appendectomy, Colonoscopy, Colon Resection, Colostomy, EGD, Other. No: Pacemaker Amputation: No Fractures: No - *Social History Last grade of school completed: High school graduate Smoking Status: Never smoker Alcohol Intake: never Alcohol Intake Frequency:: other Substance Use Type: denies use *Occupational Status:: retired *Travel in the last 8 weeks: None Family Hx:: Diabetes, Hypertension
--- NOTE | 2021-05-20 08:05 | HMH.PROC ---
[facility] Procedure Note Procedure Note:: Colonoscopy Procedure Report: Colonoscopy Endoscopist: Martir Panda II, MD Referring physician: Bernardino Barksdale MD Date of Procedure: May 20, 2021 Equipment: Olympus 190 variable stiffness pediatric colonoscope Sedation: MAC sedation Indication: Mr. Oewn is a 70-year-old gentleman who is here for diagnostic colonoscopy secondary to ongoing obstipation/incomplete defecation. The patient did have colon cancer in 2010 and had a very low colorectal/coloanal anastomosis. The patient had originally had an ileostomy and did have an obstruction from the ileostomy takedown and repair. This had to be redone at that time. He has struggled with incomplete defecation since that time. He may go up to 15 or 20 times daily but cannot expel volume. He never feels as if he fully evacuates. He does have occasional rectal bleeding but none recently. He had a colonoscopy in 2019 (Dr. Alex Lucas) which was essentially normal. He has tried MiraLAX, Metamucil and Konsyl. He reports some generalized abdominal discomfort and bloating. He reports no family history of colon cancer. Procedure: Prior to the procedure, a history and physical exam was performed, and patient's medications and allergies were reviewed. The risks, benefits and alternatives of the sedation and procedure were discussed with the patient. All questions were answered and informed consent was obtained. The patient was brought to the procedure room. Patient identification and proposed procedure were verified by the physician and the nurse. The patient was placed in a left lateral decubitus position and the scope was passed under direct vision. Throughout the procedure, the patient's blood pressure, pulse, and oxygen saturations were monitored continuously. The colonoscopy was accomplished without difficulty. The patient tolerated the procedure well. Findings: On digital rectal examination there was normal rectal tone. There were no external hemorrhoids. There was no palpable prostate. There was a palpable surgical anastomosis. The colonoscope was introduced through the anal canal to the rectum and advanced to the cecum. The ileocecal valve and appendiceal orifice were identified. The scope was advanced a short distance into the ileum which appeared grossly normal. The scope was then withdrawn into the colon. There was diverticulosis identified throughout the colon. The remaining cecum, ascending, transverse, descending colon were normal. The remaining sigmoid colon was normal. The anastomosis was approximately 2 to 3 cm above the anal verge. Upon retroflexion there were grade 1-2 internal hemorrhoids. The preparation was excellent throughout with Vienna Preparation Score of 9. The cecal time was 10 minutes. Impression: 1. Colorectal anastomosis (2 to 3 cm above anal verge) widely patent without stricturing 2. Pandiverticulosis 3. Grade 1-2 internal hemorrhoids Plan: I would encourage increased fiber bulk and reduced osmotic. I would consider adding colonic prokinetic (Zelnorm) or stimulant laxative. I will discuss the findings with the patient and family.
[2021-05-20 08:08] VITALS: O2SAT 97
[2021-05-20 08:21] VITALS: BP 61/42; PULSE 77; RESP 12; TEMP 36.6; O2SAT 94
[2021-05-20 08:31] VITALS: BP 80/52; PULSE 68; RESP 16; O2SAT 95
[2021-05-20 08:41] VITALS: BP 100/67; PULSE 72; RESP 16; O2SAT 96
[2021-05-20 08:51] VITALS: BP 110/68; PULSE 67; RESP 16; TEMP 36.6; O2SAT 96
== END 2021-05-20 08:57 | disposition home or self-care (01) ==
PROVIDERS: PCP Family Medicine; Visit Provider Internal Medicine Gastroenterology
PROC: 0DJD8ZZ Inspection of Lower Intestinal Tract, Via Natural or Artificial Opening Endoscopic (ICD-10-PCS; CPT 45378; principal; 2021-05-20 08:00)
DX: K57.30 Diverticulosis of large intestine without perforation or abscess without bleeding (principal); K64.0 First degree hemorrhoids; Z85.038 Personal history of other malignant neoplasm of large intestine; Z90.49 Acquired absence of other specified parts of digestive tract; E78.5 Hyperlipidemia, unspecified; I10 Essential (primary) hypertension; Z83.3 Family history of diabetes mellitus; Z82.49 Family history of ischemic heart disease and other diseases of the circulatory system
CPT/HCPCS: 45378

== ENCOUNTER → 2021-09-17 07:12 | Outpatient (CLI) | payer MEDICARE, SELFPAY ==
--- NOTE | 2021-09-17 07:26 | XR_ITS ---
PROCEDURE: XR CHEST 2V CLINICAL HISTORY: HYPERLIPIDEMIA,WHEEZING COMPARISON: CT CT ABDOMEN PELVIS WO/W CON from 10/04/2019 FINDINGS: The cardiomediastinal silhouette and pulmonary vascularity are within normal limits. COPD changes. Scattered areas of scarring. No lobar consolidation or collapse. In the right upper lobe laterally there is a faint somewhat thickened curvilinear opacity. This may be related to underlying parenchymal scarring. One cannot exclude a cavitating lesion. There is also faint opacity in the left lower lobe overlying the 9th rib posteriorly and may be due to summation artifact. No acute bony abnormalities. IMPRESSION: Chronic changes with possible cavitary lesion in the right upper lobe laterally. Chest CT may provide further evaluation. Dictated by: Melo Cunningham MD 09/17/2021 13:00 Melo Cunningham MD in [place] 09/17/2021 13:00
[2021-09-17 08:14] LABS: Basophils % 0.6 % (0.1-2.0); Eosinophils # 0.1 K/mm3 (0.0-0.4); Eosinophils % 0.7 % (0.1-12.0); Hematocrit 46.3 % (42.0-52.0); Hemoglobin 15.6 g/dL (14.1-18.0); Lymphocytes # 0.8 K/mm3 (0.7-4.5); Lymphocytes % 11.7 % (10-50); Mean Corpuscular HGB Conc 33.6 g/dL (31.8-35.4); Mean Corpuscular Volume 92.4 fl (80-94); Mean Platelet Volume 8.7 fl (7.4-10.4); Monocytes # 0.4 K/mm3 (0.1-1.0); Monocytes % 6.1 % (1.7-9.3); Neutrophils # 5.7 K/mm3 (1.8-7.8); Neutrophils % 80.9 % (37.0-80.0); Platelet Count 311 K/mm3 (142-424); Red Blood Count 5.02 M/mm3 (4.60-6.20); Red Cell Distribution Width 13.2 % (11.5-17.5); White Blood Count 7.1 K/mm3 (4.8-10.8)
[2021-09-17 08:30] LABS: Hemoglobin A1C 5.7 % (4.0-6.0)
[2021-09-17 08:40] LABS: Alanine Aminotransferase 27 U/L (12-78); Albumin Level 4.7 g/dl (3.5-5.0); Albumin/Globulin Ratio 1.6 (1.1-1.8); Alkaline Phosphatase 103 U/L (38-126); Anion Gap 13.3 mEq/L (5-15); Aspartate Amino Transferase 42 U/L (17-59); Bilirubin,Total 0.8 mg/dl (0.2-1.3); Blood Urea Nitrogen 6 mg/dl (9-20); Carbon Dioxide 32 mmol/L (22.0-30.0); Chloride 93 mmol/L (98-107); Chol/HDL Ratio 1.7 (1-3.5); Cholesterol 130 mg/dl (140-200); Estimated Glomerular Filt Rate 132 ml/min (>60); GFR (African American) 160 ML/MIN (>60); Globulin 2.9 g/dL (1.3-3.2); Glucose 102 mg/dl (74-100); HDL Cholesterol 76 mg/dl (40-60); Potassium 4.3 mmoL/L (3.5-5.1); Sodium 134 mmol/L (136-145); Total Protein,Serum 7.6 g/dl (6.3-8.2); Triglycerides 78 mg/dl (30-150); VLDL Cholesterol 16 mg/dL (0-40)
[2021-09-17 08:51] LABS: Direct LDL Cholesterol 60.68 mg/dL (100-129)
[2021-09-17 08:57] LABS: 25-OH Vitamin D, Total 63.1 ng/mL (30-100)
[2021-09-17 09:11] LABS: Prostate Specific Ag Screen 0.3 ng/ml (0.0-4.0); Thyroid Stimulating Hormone 4.11 uIU/mL (0.465-4.68)
[2021-09-17 09:28] LABS: Vitamin B12 532 pg/mL (239-931)
== END ==
PROVIDERS: Visit Provider Family Medicine
DX: R19.8 Other specified symptoms and signs involving the digestive system and abdomen (principal); R06.2 Wheezing; E78.5 Hyperlipidemia, unspecified; E55.9 Vitamin D deficiency, unspecified; Z85.048 Personal history of other malignant neoplasm of rectum, rectosigmoid junction, and anus; Z12.5 Encounter for screening for malignant neoplasm of prostate; Z79.899 Other long term (current) drug therapy
CPT/HCPCS: 36415; 71046; 80053; 80061; 82306; 82607; 83036; 84443; 85025; G0103

== ENCOUNTER → 2021-09-27 07:57 | Outpatient (CLI) | payer MEDICARE, SELFPAY ==
[2021-09-27 08:32] LABS: Blood Urea Nitrogen 10 mg/dl (9-20); Estimated Glomerular Filt Rate 111 ml/min (>60); GFR (African American) 134 ML/MIN (>60)
== END ==
PROVIDERS: Visit Provider Family Medicine
DX: Z01.812 Encounter for preprocedural laboratory examination (principal)
CPT/HCPCS: 36415; 82565; 84520

== ENCOUNTER → 2021-10-04 12:13 | Outpatient (CLI) | payer MEDICARE, SELFPAY ==
--- NOTE | 2021-10-04 12:18 | CT_ITS ---
PROCEDURE INFORMATION: Exam: CT Chest Without and With Contrast; Diagnostic Exam date and time: 10/04/2021 12:18 PM Age: 71 years old Clinical indication: Abnormal findings; Abnormal radiologic exam of lung or chest; Additional info: Abn cxr TECHNIQUE: Imaging protocol: Diagnostic computed tomography of the chest without and with contrast. Radiation optimization: All CT scans at this facility use at least one of these dose optimization techniques: automated exposure control; mA and/or kV adjustment per patient size (includes targeted exams where dose is matched to clinical indication); or iterative reconstruction. Contrast material: ISOVUE; Contrast volume: 75 ml; Contrast route: IV; COMPARISON: CR XR CHEST 2V 09/17/2021 7:36 AM FINDINGS: Lungs: Subpleural interstitial densities bilaterally may represent chronic lung changes. Calcified granuloma in the right lower lobe. Pleural spaces: Unremarkable. No pneumothorax. No pleural effusion. Heart: Unremarkable. No cardiomegaly. No pericardial effusion. Aorta: Unremarkable. No aortic aneurysm. Lymph nodes: Calcified mediastinal and right hilar lymph nodes may reflect prior granulomatous disease Bones/joints: 2 cm Cystic structure in the left glenoid may be due to posttraumatic change or degenerative changes Soft tissues: Unremarkable. IMPRESSION: Subpleural interstitial densities bilaterally may represent chronic lung changes.
== END ==
PROVIDERS: PCP Family Medicine; Visit Provider Family Medicine
DX: R93.89 Abnormal findings on diagnostic imaging of other specified body structures (principal)
CPT/HCPCS: 71270; Q9967

== ENCOUNTER → 2021-11-27 09:19 | Outpatient (CLI) | payer MEDICARE, SELFPAY ==
[2021-11-27 11:16] LABS: C-Reactive Protein 4.9 mg/L (0-4)
[2021-11-27 11:40] LABS: Basophils % 0.5 % (0.1-2.0); Eosinophils # 0.1 K/mm3 (0.0-0.4); Eosinophils % 0.9 % (0.1-12.0); Mean Corpuscular HGB Conc 32.6 g/dL (31.8-35.4); Mean Corpuscular Hemoglobin 31.3 pg (27.0-31.2); Mean Platelet Volume 8.3 fl (7.4-10.4); Monocytes # 0.4 K/mm3 (0.1-1.0); Monocytes % 5.2 % (1.7-9.3); Neutrophils # 6.6 K/mm3 (1.8-7.8); Neutrophils % 81.4 % (37.0-80.0); Platelet Count 287 K/mm3 (142-424); Red Blood Count 4.48 M/mm3 (4.60-6.20); White Blood Count 8.2 K/mm3 (4.8-10.8)
[2021-11-28 15:11] LABS: Anti-Centromere B Antibodies <0.2 AI (0.0-0.9); Anti-DNA (DS) Ab Qn <1 IU/mL (0-9); Anti-Jo-1 <0.2 AI (0.0-0.9); Antichromatin Antibodies <0.2 AI (0.0-0.9); Antiscleroderma-70 Antibodies <0.2 AI (0.0-0.9); RNP Antibodies 1.3 AI (0.0-0.9); Sjogren's Anti-SS-A <0.2 AI (0.0-0.9); Sjogren's Anti-SS-B <0.2 AI (0.0-0.9)
[2021-11-28 17:10] LABS: Cytoplasmic (C-ANCA) <1:20 titer (Neg:<1:20); Perinuclear (P-ANCA) <1:20 titer (Neg:<1:20)
[2021-11-28 22:07] LABS: Anti-Cyclic Citrullinated Pept 4 units (0-19)
[2021-12-01 15:09] LABS: D001-IgE D pteronyssinus <0.10 kU/L (Class 0); D002-IgE D farinae <0.10 kU/L (Class 0); E001-IgE Cat Dander <0.10 kU/L (Class 0); E005-IgE Dog Dander <0.10 kU/L (Class 0); E072-IgE Mouse Urine <0.10 kU/L (Class 0); G002-IgE Bermuda Grass <0.10 kU/L (Class 0); G006-IgE Timothy Grass <0.10 kU/L (Class 0); I006-IgE Cockroach, German <0.10 kU/L (Class 0); Immunoglobulin E, Total 4 IU/mL (6-495); M001-IgE Penicillium chrysogen <0.10 kU/L (Class 0); M002-IgE Cladosporium herbarum <0.10 kU/L (Class 0); M003-IgE Aspergillus fumigatus <0.10 kU/L (Class 0); M006-IgE Alternaria alternata <0.10 kU/L (Class 0); T001-IgE Maple/Box Elder <0.10 kU/L (Class 0); T003-IgE Common Silver Birch <0.10 kU/L (Class 0); T006-IgE Cedar, Mountain <0.10 kU/L (Class 0); T007-IgE Oak, White <0.10 kU/L (Class 0); T008-IgE Elm, American <0.10 kU/L (Class 0); T010-IgE Walnut <0.10 kU/L (Class 0); T011-IgE Maple Leaf Sycamore <0.10 kU/L (Class 0); T014-IgE Cottonwood <0.10 kU/L (Class 0); T015-IgE Ash, White <0.10 kU/L (Class 0); T022-IgE Pecan, Hickory <0.10 kU/L (Class 0); T070-IgE White Mulberry <0.10 kU/L (Class 0); W001-IgE Ragweed, Short <0.10 kU/L (Class 0); W011-IgE Thistle, Russian <0.10 kU/L (Class 0); W014-IgE Pigweed, Common <0.10 kU/L (Class 0); W018-IgE Sheep Sorrel <0.10 kU/L (Class 0)
[2021-12-23 17:26] LABS: Anti-Centromere B Abs Charge YES; Anti-DNA (DS) Ab Charge YES; Anti-Jo-1 Charge YES; Antichromatin Abs Charge YES; Antinuclear Antibodies (ANA) POSITIVE; Antiscleroderma-70 Abs Charge YES; RNP Antibodies Charge YES; Sjogren's Anti-SS-A Ab Charge YES; Sjogren's Anti-SS-B Ab Charge YES; Smith Antibodies Charge YES
== END ==
PROVIDERS: PCP Family Medicine; Visit Provider Internal Medicine Pulmonary Disease
DX: J45.909 Unspecified asthma, uncomplicated (principal); J84.9 Interstitial pulmonary disease, unspecified; J98.4 Other disorders of lung; R06.00 Dyspnea, unspecified; Z11.52 Encounter for screening for COVID-19
CPT/HCPCS: 36415; 82785; 85025; 86003; 86038; 86140; 86200; 86225; 86235; 86256; 86431; C9803; U0003; U0005

== ENCOUNTER → 2021-11-28 13:16 | Outpatient (CLI) | payer MEDICARE, SELFPAY | PROVIDERS: PCP Family Medicine; Visit Provider Internal Medicine Pulmonary Disease | DX: R06.00 Dyspnea, unspecified (principal) | CPT/HCPCS: 94060; 94618; 94726; 94729 ==

== ENCOUNTER → 2022-03-18 06:48 | Outpatient (CLI) | payer MEDICARE, SELFPAY ==
[2022-03-18 08:12] LABS: Alanine Aminotransferase 27 U/L (12-78); Albumin Level 4.5 g/dl (3.5-5.0); Albumin/Globulin Ratio 1.7 (1.1-1.8); Alkaline Phosphatase 102 U/L (38-126); Aspartate Amino Transferase 38 U/L (17-59); Bilirubin,Total 0.7 mg/dl (0.2-1.3); Blood Urea Nitrogen 7 mg/dl (9-20); Calcium 9.9 mg/dl (8.4-10.2); Carbon Dioxide 32 mmol/L (22.0-30.0); Chloride 93 mmol/L (98-107); Chol/HDL Ratio 2.4 (1-3.5); Cholesterol 145 mg/dl (140-200); Estimated Glomerular Filt Rate 132 ml/min (>60); GFR (African American) 160 ML/MIN (>60); Globulin 2.7 g/dL (1.3-3.2); Glucose 100 mg/dl (74-100); HDL Cholesterol 60 mg/dl (40-60); Sodium 132 mmol/L (136-145); Total Protein,Serum 7.2 g/dl (6.3-8.2); Triglycerides 80 mg/dl (30-150); VLDL Cholesterol 16 mg/dL (0-40)
[2022-03-18 08:23] LABS: Direct LDL Cholesterol 52.07 mg/dL (100-129)
[2022-03-18 08:29] LABS: 25-OH Vitamin D, Total 64.8 ng/mL (30-100)
[2022-03-18 09:02] LABS: Hemoglobin A1C 5.9 % (4.0-6.0)
== END ==
PROVIDERS: Visit Provider Family Medicine
DX: Z00.00 Encounter for general adult medical examination without abnormal findings (principal); I10 Essential (primary) hypertension; E78.5 Hyperlipidemia, unspecified; E55.9 Vitamin D deficiency, unspecified; Z79.899 Other long term (current) drug therapy
CPT/HCPCS: 36415; 80053; 80061; 82043; 82306; 83036

== ENCOUNTER → 2022-07-25 09:33 | Outpatient (CLI) | payer MEDICARE, SELFPAY ==
--- NOTE | 2022-07-25 10:38 | PC.NURSE ---
PFT and 6 minute walk test completed without incident. Albuterol 0.083% given per protocol pt tolerated well.
== END ==
PROVIDERS: PCP Family Medicine; Visit Provider Internal Medicine Pulmonary Disease
DX: R06.09 Other forms of dyspnea (principal)
CPT/HCPCS: 94060; 94618; 94726; 94729

== ENCOUNTER 2022-12-12 23:15 | Emergency (ER) | payer MEDICARE, SELFPAY ==
[2022-12-12 23:16] VITALS: BP 168/100; PULSE 85; RESP 20; TEMP 36.9; O2SAT 98; BMI 22.6
--- NOTE | 2022-12-12 23:27 | CT_ITS ---
PROCEDURE INFORMATION: Exam: CT Abdomen And Pelvis With Contrast Exam date and time: 12/12/2022 11:54 PM Age: 72 years old Clinical indication: Other: Gi bleed TECHNIQUE: Imaging protocol: Computed tomography of the abdomen and pelvis with contrast. Radiation optimization: All CT scans at this facility use at least one of these dose optimization techniques: automated exposure control; mA and/or kV adjustment per patient size (includes targeted exams where dose is matched to clinical indication); or iterative reconstruction. Contrast material: ISOVUE; Contrast volume: 75 ml; Contrast route: IV; Other protocol: This patient has received 0 known CTs and 0 known cardiac nuclear medicine studies in the 12 months prior to the current study. COMPARISON: CT ABDOMEN PELVIS WO/W CON 10/04/2019 9:32 AM FINDINGS: Lungs: Calcified granuloma is noted at the right lung base. Peripheral reticular interstitial lung disease is noted progressed since the prior study. Liver: Normal. No mass. Gallbladder and bile ducts: Normal. No calcified stones. No ductal dilation. Pancreas: Normal. No ductal dilation. Spleen: Normal. No splenomegaly. Adrenal glands: Normal. No mass. Kidneys and ureters: Normal. No hydronephrosis. There is a stable subcentimeter cortical hypodensity of the left kidney too small to characterize but similar to the prior exam. Stomach and bowel: An incidental duodenal diverticulum is noted. There is a distal rectal anastomosis noted. Scattered colonic diverticuli are evident. There is no evidence for GI bleed although no unenhanced or arterial phase imaging was performed. Appendix: The appendix is absent. Intraperitoneal space: Unremarkable. No free air. No significant fluid collection. Vasculature: There is mild calcific atherosclerotic disease. There is no aneurysmal dilation of the aorta. Lymph nodes: There is a stable 7 x 10 mm gastrohepatic ligament lymph node image 19 series 3. Urinary bladder: Unremarkable as visualized. Reproductive: Unremarkable as visualized. Bones/joints: Unremarkable. No acute fracture. Soft tissues: Unremarkable. IMPRESSION: 1. There is no acute process evident within the abdomen or pelvis. 2. Chronic peripheral interstitial lung disease at the bases progressed since the prior study. 3. Other findings detailed.
--- NOTE | 2022-12-12 23:30 | HMH.EDGENADL ---
Discharge Plan Disposition Patient Disposition: Home, Self-Care Condition: Good Prescriptions Prescriptions: No Action ipratropium bromide 42 mcg (0.06 %) spray,non-aerosol 2 spray INTRANASAL BID Qty: 30 3RF Rx Instructions: administer into each nostril albuterol sulfate 90 mcg/actuation HFA aerosol inhaler 2 inh inhalation Q6H PRN (Reason: shortness of breath or wheezing) 30 Days Qty: 8.5 0RF fluticasone propionate [Flonase Allergy Relief] 50 mcg/actuation spray,suspension 2 spray intranasal DAILY 90 Days Qty: 16 3RF Rx Instructions: administer into each nostril atorvastatin 20 MG tablet 20 mg PO HS multivitamin 1 EACH tablet 1 each PO DAILY acetaminophen 325 MG tablet 650 mg PO TID PRN (Reason: As Needed For Fever Or Pain) ergocalciferol (vitamin D2) 400 UNIT tablet 1,000 unit PO DAILY cctkdwjaork-tiijmbtmr-ijw C-Mn 1 EACH tablet 1 each PO DAILY omeprazole 40 MG capsule,delayed release(DR/EC) 40 mg PO DAILY polyethylene glycol 3350 119 GM powder 17 g PO DAILY psyllium husk 0.52 GM capsule 0.52 g PO DAILY saw palmetto-zinc picolinate 1 EACH capsule 1 each PO DAILY montelukast 10 mg tablet 10 mg PO DAILY Referrals Follow up/Referrals: Alex Lucas MD [Staff Physician] - See instructions Vladimir Barksdale MD [Primary Care Provider] - See instructions Activity Restrictions/Add. Instructions Additional Instructions/Restrictions: Please call Dr. Barksdale's office on Thursday to get a recheck of your hemoglobin. Dr. Lucas's office will call you to schedule. Clinical Impressions Clinical Impression: Acute GI bleeding Instructions Patient Instructions: DI for Gastrointestinal Bleeding Discharge ED Provider: Eugenio Collier General Adult HPI General Chief complaint: GI Bleed Stated complaint: Rectal Bleeding Time Seen by Provider: 12/12/22 23:25 History of Present Illness HPI narrative: Patient is a 72-year-old male with past medical history of diverticulosis, colon cancer status postresection, bowel obstruction who presents with concern for rectal bleeding. He states that earlier today he had some diarrhea and did not notice any blood in his stool. He states that he then had a bowel movement which was almost black and he noticed some streaks of red. He states that this is happened intermittently last happening 3 to 4 years ago. He denies any abdominal pain. Denies any nausea or vomiting. He states that he recently had a colonoscopy back in September which was reportedly normal. He denies any fever or chills. Related Data Home Medications Medication Instructions Recorded Confirmed atorvastatin 20 mg tablet 20 mg PO HS Cholesterol 05/03/19 12/13/22 acetaminophen 325 mg tablet 650 mg PO TID PRN As Needed For 05/04/19 12/13/22 Fever Or Pain ergocalciferol (vitamin D2) 10 mcg 1,000 unit PO DAILY Supplement 05/04/19 08/06/22 (400 unit) tablet zqjzuyvhkyy-nskqhaxzf-znm C-Mn 750 1 each PO DAILY Supplement 05/04/19 08/06/22 mg-600 mg-55 mg-5 mg tablet multivitamin 1 each PO DAILY Supplement 05/04/19 12/13/22 omeprazole 40 mg capsule,delayed 40 mg PO DAILY Reflux/Acid reflux 05/16/19 12/13/22 release polyethylene glycol 3350 17 17 g PO DAILY constipation 05/14/21 08/06/22 gram/dose oral powder psyllium husk 0.52 gram capsule 0.52 g PO DAILY constipation 05/14/21 08/06/22 saw palmetto 450 mg-zinc 1 each PO DAILY Supplement 05/14/21 08/06/22 picolinate 15 mg capsule montelukast 10 mg tablet 10 mg PO DAILY allergies 12/13/22 12/13/22 Previous Rx's Medication Instructions Recorded ipratropium bromide 42 mcg (0.06 2 spray intranasal BID #30 mL 11/19/21 %) nasal spray albuterol sulfate 90 mcg/actuation 2 inh inhalation Q6H PRN shortness 08/06/22 aerosol inhaler of breath or wheezing 30 days #8.5 grams fluticasone propionate 50 2 spray intranasal DAILY 90 days 08/07/22 mcg/actuation na
[2022-12-12 23:32] LABS: Basophils # 0.1 K/mm3 (0-0.2); Basophils % 1.5 % (0.1-2.0); Eosinophils # 0.1 K/mm3 (0.0-0.4); Eosinophils % 0.7 % (0.1-12.0); Hematocrit 44.6 % (42.0-52.0); Hemoglobin 14.7 g/dL (14.1-18.0); Lymphocytes # 0.8 K/mm3 (0.7-4.5); Lymphocytes % 12.1 % (10-50); Mean Corpuscular HGB Conc 32.9 g/dL (31.8-35.4); Mean Corpuscular Hemoglobin 30.8 pg (27.0-31.2); Mean Corpuscular Volume 93.6 fl (80-94); Mean Platelet Volume 7.9 fl (7.4-10.4); Monocytes # 0.3 K/mm3 (0.1-1.0); Monocytes % 5.1 % (1.7-9.3); Neutrophils # 5.4 K/mm3 (1.8-7.8); Neutrophils % 80.6 % (37.0-80.0); Platelet Count 273 K/mm3 (142-424); Red Blood Count 4.76 M/mm3 (4.60-6.20); White Blood Count 6.6 K/mm3 (4.8-10.8)
[2022-12-12 23:40] LABS: Chloride 97 mmol/L (98-107); Potassium 4.1 mmoL/L (3.5-5.1); Sodium 135 mmol/L (136-145)
[2022-12-12 23:42] LABS: Alanine Aminotransferase 28 U/L (12-78); Alkaline Phosphatase 104 U/L (38-126); Aspartate Amino Transferase 39 U/L (17-59); Bilirubin,Total 0.7 mg/dl (0.2-1.3); Blood Urea Nitrogen 11 mg/dl (9-20); Estimated Glomerular Filt Rate 94 ml/min (>60); GFR (African American) 114 ML/MIN (>60)
[2022-12-12 23:43] LABS: Albumin Level 4.7 g/dl (3.5-5.0); Albumin/Globulin Ratio 1.5 (1.1-1.8); Anion Gap 10.1 mEq/L (5-15); Calcium 9.2 mg/dl (8.4-10.2); Carbon Dioxide 32 mmol/L (22.0-30.0); Globulin 3.2 g/dL (1.3-3.2); Glucose 131 mg/dl (74-100); Lipase 74 U/L (23-300); Total Protein,Serum 7.9 g/dl (6.3-8.2)
[2022-12-12 23:44] LABS: INR 0.92 (0.9-1.1)
[2022-12-12 23:48] LABS: C-Reactive Protein 2.6 mg/L (0-4)
[2022-12-13 00:49] LABS: Occult Blood,Stool Positive (Negative)
[2022-12-13 01:10] VITALS: BP 155/95; PULSE 82; RESP 18; TEMP 36.6; O2SAT 99
== END 2022-12-13 01:18 | disposition home or self-care (01) ==
PROVIDERS: Emergency Provider Student in an Organized Health Care Education/Training Program; PCP Family Medicine
DX: K57.91 Diverticulosis of intestine, part unspecified, without perforation or abscess with bleeding (principal); Z87.19 Personal history of other diseases of the digestive system; Z85.038 Personal history of other malignant neoplasm of large intestine; J30.9 Allergic rhinitis, unspecified; R05.3 Chronic cough; R91.8 Other nonspecific abnormal finding of lung field; Z83.3 Family history of diabetes mellitus; Z82.49 Family history of ischemic heart disease and other diseases of the circulatory system
CPT/HCPCS: 74177; 80053; 82272; 83690; 85025; 85610; 86140; 99285; G0328; Q9967

== ENCOUNTER → 2022-12-18 08:23 | Outpatient (CLI) | payer MEDICARE, SELFPAY ==
[2022-12-18 08:39] LABS: Hematocrit 38.4 % (42.0-52.0); Hemoglobin 12.6 g/dL (14.1-18.0)
== END ==
PROVIDERS: PCP Family Medicine; Visit Provider Surgery
DX: K92.2 Gastrointestinal hemorrhage, unspecified (principal)
CPT/HCPCS: 36415; 85014; 85018

== ENCOUNTER 2023-01-09 12:25 | Day surgery (SDC) | payer MEDICARE, SELFPAY ==
[2023-01-08 09:22] VITALS: BMI 23.3
[2023-01-09 12:50] VITALS: BP 176/101; PULSE 88; RESP 18; TEMP 37.2; O2SAT 98
--- NOTE | 2023-01-09 13:40 | P.PN_ITS ---
[facility] Disclaimer: The information contained in this section may have been updated after the patient was seen, as this information can be updated by other users. Medical History Abnormal computerized axial tomography of chest Allergic rhinitis, unspecified Anxiety and depression Chronic cough Colon cancer Fibrosis of lung History of diverticulitis History of gastroesophageal reflux (GERD) Hyperlipidemia ILD (interstitial lung disease) Irritable bowel syndrome (IBS) Seasonal allergies Surgical History H/O ileostomy History of appendectomy History of colon resection History of colonoscopy Family History Other Diabetes Heart disease Hypertension Social History Smoking Status: Never smoker alcohol intake: never counseling provided: none substance use type: denies use current occupational status: retired Travel in the last 8 weeks: None caffeine: Yes [facility] Anesthesia Checklist Patient Identification Patient Identification: Arm Band and Verbal (Name & ) Structural Data Admitted From: Home Planned Operative Procedure/s: Colonoscopy Consent for Planned Operative Procedure(s) Verified: Yes NPO Status Verified Time NPO: 00:00 Additional verifications Anesthesia Reactions: No Hx Blood Transfusions: No Blood Transfusion Reaction: No Airway Assessment C-Spine Mobility Assessed: Yes TMJ Mobility Assessed: Yes Dentition: Edentulous Neurological Assessment Level of Consciousness: Awake Hx Seizures: No Numbness or tingling in extremities: No Anesthesia Plan Anesthesia Risk discussed: Yes Anesthesia Plan: Verified ASA Class: III Anesthesia Type: MAC
[2023-01-09 14:26] VITALS: O2SAT 98
[2023-01-09 14:49] VITALS: BP 101/63; PULSE 70; RESP 14; TEMP 36.4; O2SAT 96
--- NOTE | 2023-01-09 14:49 | HMH.SCOPE ---
Procedure: Date: 01/09/23 Patient Date of :: 1950 Procedure Performed:: Total colonoscopy Indications:: Patient is a 72-year-old male who is well-known to me referred by the emergency department for apparent rectal bleeding.? He has a very longstanding history of intermittent rectal bleeding for likely at least 15 years.? He has had several upper endoscopies and colonoscopies in the past.? In November 2010 he had apparently undergone low anterior resection with coloanal anastomosis by Dr. Pollo Mariscal for apparent rectal carcinoma.? He did have a temporary diverting loop ileostomy which was taken down in 2010.? Patient has had a laparotomy [place] [address] Sy for bowel obstruction.? Subsequently Dr. Sy had performed colonoscopies on several occasions.? I did a colonoscopy November 2016 and he had a serrated adenoma.? Colonoscopy done 04/13/2018 for rectal bleeding revealed diverticulosis and minimal hemorrhoids with apparent coloanal anastomosis with visible staple line and palpable stable at approximately 2 or 3 cm from the anal verge.? Due to rectal bleeding I had performed upper endoscopy and colonoscopy on 05/17/2019 and he had a hiatal hernia, gastric fundic gland polyp with minimal gastritis and negative H. pylori.? Colonoscopy at that time revealed diverticulosis and anastomosis encountered at about 2 or 3 cm from the anal verge with visible staple.? I had discussed with the patient possible transanal oversewing of the area that was causing the bleeding.? His bleeding resolved.? He had been referred to gastroenterology and saw Dr. Stew Cheney in [place] due to his ongoing symptoms of possible functional bowel disorder characterized by nonspecific abdominal pain and bloating.? He underwent EGD and colonoscopy on 09/29/2022 and he was found to have some mild chronic gastritis.? Colonoscopy revealed diverticulosis throughout the colon end-to-end anastomosis was noted approximately 15 cm from the anus.? He had random biopsies performed which were unremarkable. Patient presented to the emergency department on 12/12/2022 with complaints of rectal bleeding.? This was painless.? He was found to have a hemoglobin of 14.7.? He did have stool occult positive for blood.? He had CT scan of the abdomen and pelvis which revealed no acute process.? He was managed as an outpatient.? He does state that he underwent fingerstick hemoglobin through Dr. Barksdale's office yesterday and this was noted to be 11 according to him. Patient states that the rectal bleeding had stopped 4 days after it began. Performing Provider:: Alex Lucas MD Referring Provider:: Bernardino Barksdale MD Sedation:: MAC sedation Procedure:: Patient history was obtained and appropriate physical examination was performed. Patient's medications and allergies were reviewed. Informed consent was obtained after explaining the benefits, alternatives, and risks of the procedure including, but not limited to, bleeding, perforation, missed lesions, and adverse reaction to anesthesia medications. Patient was transported to endoscopy procedure room. Patient was connected to monitoring devices. Throughout the procedure the patient's blood pressure, pulse, and oxygen saturations were monitored continuously. Patient identification and planned procedure were verified by the staff. Patient was positioned in lateral decubitus position. Digital anorectal exam was performed. Variable stiffness Olympus colonoscope was inserted and advanced under direct visualization to the cecum. Adequacy of the colonic preparation was noted. The colonoscope was advanced a short distance into the terminal ileum. The colonoscope was then slowly withdrawn while carefully examining the color, texture, anatomy, and integrity of the mucosoa circumferentially. Within the rectum retroflexion was performed. Colonoscope was then withdrawn. Findings:: Colonic preparation was good. He had some pandiverticulosis.
[2023-01-09 14:59] VITALS: BP 94/54; PULSE 69; RESP 16; O2SAT 97
[2023-01-09 15:09] VITALS: BP 101/58; PULSE 64; RESP 16; O2SAT 97
[2023-01-09 15:20] VITALS: BP 132/84; PULSE 69; RESP 18; TEMP 36.6; O2SAT 99
== END 2023-01-09 15:20 | disposition home or self-care (01) ==
PROVIDERS: PCP Family Medicine; Visit Provider Surgery
PROC: 0DJD8ZZ Inspection of Lower Intestinal Tract, Via Natural or Artificial Opening Endoscopic (ICD-10-PCS; principal; 2023-01-09 13:30)
DX: K62.5 Hemorrhage of anus and rectum (principal); K57.30 Diverticulosis of large intestine without perforation or abscess without bleeding; Z86.010 Personal history of colon polyps; Z79.899 Other long term (current) drug therapy
CPT/HCPCS: 45378; J2704

== ENCOUNTER → 2023-01-21 09:01 | Outpatient (CLI) | payer MEDICARE, SELFPAY ==
--- NOTE | 2023-01-21 09:02 | US_ITS ---
FINAL REPORT CLINICAL HISTORY: right upper quad pain COMPARISON: none FINDINGS: GALLBLADDER ULTRASOUND Technique: Ultrasound images of the right upper quadrant were obtained specifically the gallbladder. Findings: Limited images of the liver parenchyma demonstrate focal fatty infiltration. There is a moderate amount of sludge in the dependent portion of the gallbladder. There are no gallstones. Common duct is normal. IMPRESSION: Gallbladder sludge without gallstones. Fatty liver. Reviewed, Interpreted and Dictated by Samuel Terry MD Transcribed by Virginia Reyna Authenticated and [facility]
== END ==
PROVIDERS: PCP Family Medicine; Visit Provider Surgery
DX: R10.11 Right upper quadrant pain (principal)
CPT/HCPCS: 76705

== ENCOUNTER → 2023-02-20 10:00 | Outpatient (CLI) | payer MEDICARE, SELFPAY ==
--- NOTE | 2023-02-20 10:00 | NM_ITS ---
FINAL REPORT TECHNIQUE: The patient was injected with 8.10 mCi of technetium 99m Choletec and subsequently 1.3 mcg of Kinevac. Images of the abdomen were obtained for one hour. CLINICAL HISTORY: right upper quad pain neg u/s gb done on 01/21/23 10:35 am 8.10 mci tc choletec 1.3 mcg of cck injected into lt ant no pain during cck FINDINGS: Hepatic uptake is normal. There is gallbladder and small bowel activity by 30 minutes. Post Kinevac images render an ejection fraction of 95% IMPRESSION: Normal hepatobiliary scan. Normal ejection fraction. Reviewed, Interpreted and Dictated by Alex Thompson III, MD Transcribed by Desiree Austin Authenticated and [facility]
== END ==
PROVIDERS: PCP Family Medicine; Visit Provider Surgery
DX: R10.11 Right upper quadrant pain (principal)
CPT/HCPCS: 78227; A9537; J2805

== ENCOUNTER → 2023-09-28 08:35 | Outpatient (CLI) | payer MEDICARE, SELFPAY ==
--- NOTE | 2023-09-28 08:35 | FL_ITS ---
FINAL REPORT CLINICAL HISTORY: bloating..pt has had colon CA 1720.25 dap 2.17 fluoro time FINDINGS: AIR CONTRAST UPPER GI AND SMALL BOWEL FOLLOW THROUGH HISTORY: Abdominal bloating, generalized abdominal pain, history of colon cancer. TECHNIQUE: The patient ingested thick and thin barium contrast. Effervescent crystals were also administered. additional barium was administered for small bowel follow-through. Spot and overhead films were performed. A total of 55 images were saved. FINDINGS: upper GI:The esophagus demonstrates no morphologic abnormalities. No mucosal defects are seen. There is mild esophageal dysmotility. The stomach is of normal size, shape and position. No gastric filling defects are seen. The duodenal bulb and sweep appear unremarkable. No episodes of gastroesophageal reflux observed. 13 mm barium tablet passes easily through the esophagus and into the stomach. SBFT: The char filter tank tender head film is unremarkable. The transit time to the colon is normal. Contrast reaches the colon at 40 minutes. The mucosal fold pattern is normal. Spot images of the terminal ileum are unremarkable. FLUROSCOPY TIME: 2 minutes 17 seconds. Radiation exposure in Total DAP: 1720.25 uGym2 IMPRESSION: Mild esophageal dysmotility. Otherwise, unremarkable upper GI and small bowel follow-through. Reviewed, Interpreted and Dictated by Jane Hilton MD Transcribed by Aneta Cabrera PA-C Authenticated and . [facility]
== END ==
PROVIDERS: PCP Family Medicine; Visit Provider Surgery
DX: R14.0 Abdominal distension (gaseous) (principal)
CPT/HCPCS: 74246; 74248

== ENCOUNTER → 2023-10-22 12:42 | Outpatient (CLI) | payer MEDICARE, SELFPAY | LOC: RT 12:43 | PROVIDERS: PCP Family Medicine; Visit Provider Internal Medicine Pulmonary Disease | DX: R06.09 Other forms of dyspnea (principal) | CPT/HCPCS: 94060; 94618; 94726; 94729 ==

== ENCOUNTER 2023-12-03 09:04 | Inpatient (IN) | payer MEDICARE, OTHER, SELFPAY ==
[2023-12-03] VITALS (25 sets, daily range): BP systolic 96–134; BP diastolic 55–71; PULSE 76–99; RESP 14–27; TEMP 36.5–37.2; O2SAT 96–100; BMI 23.3
--- NOTE | 2023-12-03 09:24 | PC.NURSE ---
dr bradshaw at bedside
--- NOTE | 2023-12-03 09:26 | CT_ITS ---
FINAL REPORT TECHNIQUE: Pre-and postcontrast images of the abdomen and pelvis were performed by computed tomography. Extensive 3-D reconstruction images were performed. A CTA was performed. This study was performed with techniques to keep radiation doses as low as reasonably achievable (ALARA). Individualized dose reduction techniques using automated exposure control or adjustment of mA and/or kV according to the patient''s size were employed. CLINICAL HISTORY: melena/GI bleeding, h/o colon ca s/p resection COMPARISON: 12/12/2022 FINDINGS: ABDOMEN/PELVIS: There is cholelithiasis. The solid organs are otherwise unremarkable. No bowel obstruction is identified. There are postoperative changes along the cecum and rectum. Mild diverticular disease is seen in the distal colon. CTA: There is mild scattered plaque of the distal aorta. 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 The SMA and LARISSA are widely patent. The renal arteries are widely patent. The iliac vessels are widely patent. IMPRESSION: Unremarkable CTA of the aorta and branch vessels. No bowel or inflammatory changes. Reviewed, Interpreted and Dictated by Jane Hilton MD Transcribed by Desiree Austin Authenticated and [facility]
--- NOTE | 2023-12-03 09:29 | ED_ITS ---
Discharge Plan Disposition Patient Disposition: Admitted Condition: Good Clinical Impressions Clinical Impression: Lower gastrointestinal hemorrhage, Symptomatic anemia Discharge ED Provider: Mony Rosado General Adult HPI General Chief complaint: GI Bleed Stated complaint: passing blood , weak Time Seen by Provider: 12/03/23 09:07 Mode of Arrival: Wheelchair Source of Information: Patient Limitations: No Limitations Description of Symptoms (Recalled from ER Triage Doc. by RN): pt states he has had red rectal bleeding since . Pt states he had an appointment with Dr. Lucas today at 0930 for rectal bleeding. Pt states he decided to come here instead. Pt also c/o BLE edema. Pt states he has been sleeping in a chair x1wk with his fit down. pt has a hx of colon cancer in 2010. History of Present Illness HPI narrative: This patient is a 73-year-old male with a history of colon cancer status post resection with history of chronic and recurrent GI bleeding presenting to the emergency department for evaluation with concern for rectal bleeding. Patient was supposed to see Dr. Lucas for this today but came here because it seemed to worsen this morning and he thought workup here would be faster. He advises that it started up again on Thursday, however it resolved late Thursday night. He notes that he started again this morning with multiple episodes happening since he woke up. He notes that he has had both bright red blood per rectum and melena. He also notes that he is having some left lower quadrant/pelvic abdominal pain. He does have extensive history of diverticulosis. Record review, he was evaluated here for this approximately a year ago for similar issues. He was referred to surgery as an outpatient for scope. Patient reports that he feels very weak. No other concerns noted at this time. He does not take any blood thinners or aspirin. Related Data Home Medications Medication Instructions Recorded Confirmed atorvastatin 20 mg tablet 20 mg PO HS 05/03/19 12/03/23 acetaminophen 325 mg tablet 650 mg PO TID PRN As Needed For 05/04/19 12/03/23 Fever Or Pain ergocalciferol (vitamin D2) 10 mcg 2,000 unit PO DAILY Supplement 05/04/1911/25 (400 unit) tablet ljbbkhvhegi-mlakjsuji-mum C-Mn 750 1 each PO DAILY Supplement 05/04/19 12/03/23 mg-600 mg-55 mg-5 mg tablet multivitamin 1 each PO DAILY Supplement 05/04/19 12/03/23 omeprazole 40 mg capsule,delayed 40 mg PO DAILY 05/16/19 12/03/23 release saw palmetto 450 mg-zinc 1 each PO DAILY Supplement 05/14/21 12/03/23 picolinate 15 mg capsule lisinopril 5 mg tablet 2.5 mg PO DAILY 04/30/23 12/03/23 duloxetine 30 mg capsule,delayed 30 mg PO HS 12/03/23 12/03/23 release gabapentin 300 mg capsule 300 mg PO BID 12/03/23 12/03/23 montelukast 10 mg tablet 10 mg PO HS 12/03/23 12/03/23 Previous Rx's Medication Instructions Recorded azelastine 137 mcg (0.1 %) nasal 2 spray intranasal BID #30 mL 08/20/23 spray aerosol Allergies Allergy/AdvReac Type Severity Reaction Status Date / Time ciprofloxacin [From CIPRO] Allergy Mild Unknown Verified 12/03/23 09:29 allergy reaction [facility] Disclaimer: The information contained in this section may have been updated after the macy guzman was seen, as this information can be updated by other users. Medical History Abnormal computerized axial tomography of chest Allergic rhinitis, unspecified Anxiety and depression Bilateral hearing loss Chronic cough Colon cancer Dizziness Fibrosis of lung Fluid level behind tympanic membrane of both ears History of diverticulitis History of gastroesophageal reflux (GERD) Hyperlipidemia ILD (interstitial lung disease) Impacted cerumen, bilateral Irritable bowel syndrome (IBS) Seasonal allergies Sensorineural hearing loss Tinnitus, bilateral Surgical History H/O ileostomy History of appendectomy History of colon resection History of colonoscopy Family History Other Diabetes Heart disease Hypertension Social History Smoking Status: Never smoker alcohol intake: never counseling provided: none substance use type: denies use current occupational status: retired Travel in the last 8 weeks: None caffeine: Yes ROS Obtained: Yes All systems reviewed & no additional complaints except as documented Physical Exam General General appearance: alert and in no apparent distress Head Head exam: atraumatic and normocephalic Eye Eye exam: Present normal appearance, PERRL and EOMI ENT ENT exam: Present normal exam, normal oropharynx, mucous membranes moist and normal external ear exam Neck Neck exam: Present normal inspection, full ROM and trachea midline; Absent tenderness Chest Chest inspection: Present normal inspection and symmetric chest wall rise; Absent tenderness Respiratory Respiratory exam: Present normal lung sounds bilaterally; Absent respiratory distress, wheezes, stridor or accessory muscle use Cardiovascular Cardiovascular exam: Present regular rate and normal rhythm Abdominal Exam Abdominal exam: Present soft, tenderness (mild LLQ) and normal bowel sounds; Absent distention, guarding, rebound or rigidity Extremities Exam Extremities exam: Present normal inspection, full ROM and normal capillary refill; Absent tenderness or edema Back Exam Back exam: Present normal inspection and full ROM; Absent tenderness Neurological Exam Neurological exam: Present alert, oriented X3, CN II-XII intact and normal gait; Absent motor sensory deficit Psychiatric Psychiatric exam: Present normal affect and normal mood Skin Skin exam: Present warm and dry Medical Decision Making Medical Records Medical records reviewed: Yes I reviewed the patient's medical records. Reza Inquiry Pt receiving controlled substance: No Vital Signs: 12/03/23 09:16 12/03/23 09:53 12/03/23 10:00 Temperature 97.9 F Temperature Source Oral Pulse Rate 92 H 94 H Pulse Rate [Left] 92 H Respiratory Rate 18 20 18 Blood Pressure 114/68 111/69 Blood Pressure [Right Arm] 128/66 Blood Pressure Mean 83 78 Blood Pressure Mean [Right Arm] 86 Blood Pressure Source [Right Arm] Automatic Cuff Blood Pressure Position [Right Arm] Sitting 02 Sat by Pulse Oximetry 99 98 99 Lab Data Lab results reviewed: Yes I reviewed the patient's lab results. Lab Results 12/03/23 09:22: WBC 8.8, RBC 3.06 L, Hgb 9.5 L, Hct 28.7 L, MCV 93.8, MCH 31.2, MCHC 33.2, RDW 13.8, Plt Count 238, MPV 8.1, Neut % (Auto) 85.8 H, Lymph % (Auto) 8.8 L, [place] % (Auto) 4.3, Eos % (Auto) 0.7, Baso % (Auto) 0.4, Neut # (Auto) 7.5, Lymph # (Auto) 0.8, [place] # (Auto) 0.4, Eos # (Auto) 0.1, Baso # (Auto) 0.0, Total Counted 100, Neutrophils % (Manual) 87 H, Lymphocytes % (Manual) 8 L, Monocytes % (Manual) 3, Eosinophils % (Manual) 2, Platelet Estimate Normal, RBC Morphology Normal, PT 10.6, INR 0.98, APTT 23.8, Sodium 130 L, Potassium 4.2, Chloride 97 L, Carbon Dioxide 29, Anion Gap 8.2, BUN 14, Creatinine 0.70, Estimated Creat Clear 57, Estimated GFR 110, Est GFR ( Amer) 133, Glucose 122 H, Calcium 8.7, Total Bilirubin 0.4, AST 31, ALT 25, Alkaline Phosphatase 69, Total Protein 6.2 L, Albumin 3.8, Globulin 2.4, Albumin/Globulin Ratio 1.6 12/03/23 09:41: Stool Occult Blood Positive A 12/03/23 11:35: Hgb 7.7 L D, Hct 23.5 L 12/03/23 11:45: Urine Color Yellow, Urine Appearance Sl cloudy, Urine pH 7.0, Ur Specific [place] <= 1.005, Urine Protein Negative, Urine Glucose (UA) Negative, Urine Ketones Negative, Urine Blood Negative, Urine Nitrate Negative, Urine Bilirubin Negative, Urine Urobilinogen 0.2, Ur Leukocyte Esterase Negative, Urine RBC None, Urine WBC None, Ur Squamous Epith Cells Occasional, Urine Bacteria None 12/03/23 11:35 12/03/23 09:22 Orders (Tests/Meds): ED MEDICATIONS Generic Name Dose Route Start Last Admin Trade Name Freq PRN Reason Stop Dose Admin Acetaminophen 650 mg 12/03/23 12:02 Acetaminophen 325mg Tab PO 01/02/24 12:01 Q6HP PRN Fever or Mild Pain (1-3) Sodium Chloride 250 mls @ 25 mls/hr 12/03/23 12:15 Sod Chlor 0.9% 250ml Bag IV 12/04/23 12:14 .Q10H SEBASTIEN Discontinued Medications Generic Name Dose Route Start Last Admin Trade Name Freq PRN Reason Stop Dose Admin Iopamidol 100 ml 12/03/23 10:29 12/03/23 10:30 Iopamidol-370 (76%);100ml Bottle IV 12/03/23 10:30 100 ml ONCE ONE Administration Sodium Chloride 10 ml 12/03/23 10:29 12/03/23 10:30 Sodium Chloride 0.9% 10ml Syr (Rad Only) IV 12/03/23 10:30 10 ml ONCE ONE Administration Sodium Chloride 50 ml 12/03/23 10:29 12/03/23 10:30 0.9 % Sodium Chloride 50 Ml Vial IV 12/03/23 10:30 50 ml ONCE ONE Administration ORDERS Category Date Time Status Blood transfusion [Red Blood Cells] Stat BBK 12/03/23 12:17 Received Type and Screen Stat BBK 12/03/23 12:[address] angio abdomen pelvis Stat Cat Scan 12/03/23 09:26 Completed Consult to General Surgery [CONS] Routine Cons 12/03/23 11:56 Ordered Activated Partial Thrombo Time Stat Lab 12/03/23 09:22 Completed Complete Blood Count Auto Diff Stat Lab 12/03/23 09:22 Completed Comprehensive Metabolic Panel Stat Lab 12/03/23 09:22 Completed Diarrhea 23 Panel, PCR Stat Lab 12/03/23 09:41 Received Hemoglobin and Hematocrit Stat Lab 12/03/23 11:35 Completed Occult Blood,Stool Stat Lab 12/03/23 09:41 Completed Prothrombin Time INR Stat Lab 12/03/23 09:22 Completed UA [Urinalysis and Microscopic] Stat Lab 12/03/23 11:45 Completed ECG Data Tracing #1: I reviewed this ECG and interpreted as documented below: Normal sinus rhythm with a ventricular rate of [address] changes concerning for ischemia. Normal axis and intervals. ECG initial impression date: 12/03/23 ECG initial impression time: 09:52 Medical Decision Narrative: In summary, this patient is a 73-year-old male presenting to the Emergency Department for evaluation of rectal bleeding, which is chronic and recurrent. Differential diagnoses considered include but are not limited to anastomotic bleeding, upper GI bleed, lower GI bleed, diverticulitis, symptomatic anemia. Ruling out the most morbid conditions drove assessment. On exam, the patient is well-appearing with reassuring vital signs on cardiac telemetry. No hypotension or tachycardia. He has mild left lower quadrant abdominal tenderness, but no rebound, guarding, or other concerns. Workup i ncluded CBC, CMP, coags, EKG, diarrhea panel, stool occult, and CTA abdomen and pelvis with IV contrast. I independently interpreted CT scan prior to the radiologist read and noted no obvious acute active contrast extravasation. Please see their read for final interpretation. Labs were obtained that demonstrated anemia with a hemoglobin of 9.4. Only prior comparison is from over a year ago which was over 12. Repeat H&H was obtained after 3 hours, given that the patient had continued bleeding rectally while here in the emergency department, and it demonstrated a drop to 7.7. He remains hemodynamically stable. He continues to have slow active bleeding at this time.. Type and screen ordered as well as blood transfusion given ongoing bleeding. Patient is agreeable to this and consent was obtained. Given his active bleeding, I called and had an indirect discussion with Dr. Lucas who advised that the patient be admitted for potential procedure, including possible flexible sigmoidoscopy. Patient is agreeable to this. I called and had an interactive discussion with Dr. Kang who accepted the patient for admission. He was admitted in stable condition. Critical Care Critical Care Time Critical Care Time: No
[2023-12-03 09:30] LABS: Basophils % 0.4 % (0.1-2.0); Eosinophils # 0.1 K/mm3 (0.0-0.4); Eosinophils % 0.7 % (0.1-12.0); Hematocrit 28.7 % (42.0-52.0); Hemoglobin 9.5 g/dL (14.1-18.0); Lymphocytes # 0.8 K/mm3 (0.7-4.5); Lymphocytes % 8.8 % (10-50); Mean Corpuscular HGB Conc 33.2 g/dL (31.8-35.4); Mean Corpuscular Hemoglobin 31.2 pg (27.0-31.2); Mean Corpuscular Volume 93.8 fl (80-94); Mean Platelet Volume 8.1 fl (7.4-10.4); Monocytes # 0.4 K/mm3 (0.1-1.0); Monocytes % 4.3 % (1.7-9.3); Neutrophils # 7.5 K/mm3 (1.8-7.8); Neutrophils % 85.8 % (37.0-80.0); Platelet Count 238 K/mm3 (142-424); Red Blood Count 3.06 M/mm3 (4.60-6.20); Red Cell Distribution Width 13.8 % (11.5-17.5); White Blood Count 8.8 K/mm3 (4.8-10.8)
--- NOTE | 2023-12-03 09:34 | PC.NURSE ---
pt assisted to br
[2023-12-03 09:38] LABS: Alanine Aminotransferase 25 U/L (12-78); Albumin Level 3.8 g/dl (3.5-5.0); Albumin/Globulin Ratio 1.6 (1.1-1.8); Alkaline Phosphatase 69 U/L (38-126); Anion Gap 8.2 mEq/L (5-15); Aspartate Amino Transferase 31 U/L (17-59); Bilirubin,Total 0.4 mg/dl (0.2-1.3); Blood Urea Nitrogen 14 mg/dl (9-20); Calcium 8.7 mg/dl (8.4-10.2); Carbon Dioxide 29 mmol/L (22.0-30.0); Chloride 97 mmol/L (98-107); Creatinine Clearance Estimated 57 mL/min (50-200); Estimated Glomerular Filt Rate 110 ml/min (>60); GFR (African American) 133 ML/MIN (>60); Globulin 2.4 g/dL (1.3-3.2); Glucose 122 mg/dl (74-100); Potassium 4.2 mmoL/L (3.5-5.1); Sodium 130 mmol/L (136-145); Total Protein,Serum 6.2 g/dl (6.3-8.2)
[2023-12-03 09:43] LABS: Activated Partial Thrombo Time 23.8 seconds (22.8-30.6); INR 0.98 (0.9-1.1); Prothrombin Time 10.6 seconds (10.1-12.5)
[2023-12-03 09:47] LABS: Adenovirus F 40/41, stool Not Detected (NotDetected); Astrovirus Not Detected (NotDetected); Campylobacter Not Detected (NotDetected); Cryptosporidium Not Detected (NotDetected); Cyclospora Cayetanesis Not Detected (NotDetected); Entamoeba histolytica Not Detected (NotDetected); Enteroaggregative E coli Not Detected (NotDetected); Enteropathogenic E coli Not Detected (NotDetected); Enterotoxigenic E coli Not Detected (NotDetected); Giardia lamblia Not Detected (NotDetected); Plesimonas Shigalloides, PCR Not Detected (NotDetected); Rotavirus A Not Detected (NotDetected); Salmonella, PCR Not Detected (NotDetected); Sapovirus Not Detected (NotDetected); Shiga-like toxin E coli Not Detected (NotDetected); Shigella Enterovasive E coli Not Detected (NotDetected); Vibrio Cholerae Not Detected (NotDetected); Vibrio, PCR Not Detected (NotDetected); Yersinia Entercolitica, PCR Not Detected (NotDetected)
[2023-12-03 09:47] LABS: MANUAL DIFFERENTIAL MANUAL DIFFERENTIAL (MANUAL DIFF)
--- NOTE | 2023-12-03 09:51 | ECG_ITS ---
APPROVED REPORT Exam: Resting ECG HR:88 bpm ECG Measurements Heart Rate 88 AXES CA 140 P 25 QRSd 90 QRS 7 QT 338 T 47 QTc 384 Conclusion SINUS RHYTHM NORMAL ECG INTERPRETATION BASED ON A DEFAULT AGE OF 40 YEARS UNCONFIRMED REPORT Electronically signed by : Ousmane Ramachandran MD 12/03/2023 16:32:50
[2023-12-03 09:53] LABS: Occult Blood,Stool Positive (Negative)
[2023-12-03] MEDS: 0.9 % SODIUM CHLORIDE 50 ML VIAL IV (10:30)
[2023-12-03] MEDS: SODIUM CHLORIDE 0.9% 10ML SYR (RAD ONLY) 10 ML IV (10:30)
[2023-12-03] MEDS: IOPAMIDOL-370 (76%);100ML BOTTLE 100 ML IV (10:30)
--- NOTE | 2023-12-03 11:22 | PC.NURSE ---
SPOKE WITH RADIOLOGY, CT SCAN IS LOCKED
[2023-12-03 11:44] LABS: Eosinophils % 2 % (0-3); Lymphocytes % 8 % (10-50); Monocytes % 3 % (2-9); Neutrophils % 87 % (42-76); Platelet Estimate Normal; RBC Morphology Normal; Total Cells Counted 100
[2023-12-03 11:50] LABS: Microscopic, Urine URINE MICROSCOPIC (MICROSCOPIC)
[2023-12-03 11:51] LABS: Appearance,Urine SL CLOUDY (Clear); Bilirubin,Urine Negative (Negative); Blood, Urine Negative (Negative); Color,Urine YELLOW (Yellow); Glucose,Urine (UA) Negative (Negative); Ketones,Urine Negative (Negative); Leukocyte Esterase,Urine Negative (Negative); Nitrate,Urine Negative (Negative); Protein,Urine Negative (Negative); Specific Gravity, Urine <= 1.005 (1.005-1.030); Urobilinogen,Urine 0.2 EU/dl (0.2)
[2023-12-03 12:01] LABS: Hematocrit 23.5 % (42.0-52.0)
[2023-12-03 12:02] LABS: Hemoglobin 7.7 g/dL (14.1-18.0)
--- NOTE | 2023-12-03 12:03 | P.CONS_ITS ---
History of Present Illness *Admission Date: 12/03/23 *Reason for visit:: GI bleeding *History of present illness: Patient is a 73-year-old male whom I have followed for quite some time and is well-known to me. He had undergone low anterior resection by Dr. Pollo Mariscal in November 2010 for rectal carcinoma and had a loop ileostomy at that time which was ultimately reversed. Patient had developed a small bowel obstruction in the distal ileum and underwent laparotomy with small bowel resection in October [address] Sy. He has had multiple subsequent colonoscopies revealing diverticulosis. Patient has had some problems with bowel irregularity for some time potentially partially due to the profoundly low coloanal anastomosis. He has had problems with intermittent rectal bleeding for many years, likely greater than 15 years. He has had numerous colonoscopies and evaluations for rectal bleeding. I had last performed colonoscopy on 01/09/2023 after he had presented to the emergency department with rectal bleeding and was referred. He was found to have evidence of colorectal anastomosis about 6 cm from the anus with visible staple and findings of pandiverticulosis. It was felt that potentially a source of his bleeding may be this irritated somewhat loose stable from his prior anastomosis and I had planned for transanal removal and oversewing of this but the patient declined. Apparently the patient had contacted the office several days ago after he had developed rectal bleeding on 12/01/2023. He was scheduled to be seen in the office today. However, he presented to the emergency department due to the bleeding and weakness. He did undergo CTA of the abdomen which revealed no evidence of any obvious active bleeding. He was found to have hemoglobin of 9.5. 1 year ago hemoglobin was 12.6. After the patient had been in the emergency department for several hours he had repeat H&H performed which revealed hemoglobin of 7.7. [facility] Disclaimer: The information contained in this section may have been updated after the patient was seen, as this information can be updated by other users. Medical History Abnormal computerized axial tomography of chest Allergic rhinitis, unspecified Anxiety and depression Bilateral hearing loss Chronic cough Colon cancer Dizziness Fibrosis of lung Fluid level behind tympanic membrane of both ears History of diverticulitis History of gastroesophageal reflux (GERD) Hyperlipidemia ILD (interstitial lung disease) Impacted cerumen, bilateral Irritable bowel syndrome (IBS) Seasonal allergies Sensorineural hearing loss Tinnitus, bilateral Surgical History H/O ileostomy History of appendectomy History of colon resection History of colonoscopy Family History Other Diabetes Heart disease Hypertension Social History (Updated 12/03/23 @ 15:37 by Sandy Dai RN) Smoking Status: Never smoker alcohol intake: never counseling provided: none substance use type: denies use current occupational status: retired Travel in the last 8 weeks: None caffeine: Yes Meds Home Medications and Allergies Home Medications Medication Instructions Recorded Confirmed Type atorvastatin 20 mg tablet 20 mg PO HS 05/03/19 12/03/23 History acetaminophen 325 mg tablet 650 mg PO TID PRN As Needed For 05/04/19 12/03/23 History Fever Or Pain ergocalciferol (vitamin D2) 10 mcg 2,000 unit PO DAILY Supplement 05/04/19 12/03/23 History (400 unit) tablet tfepfmtkxbq-nwffmompx-opn C-Mn 750 1 each PO DAILY Supplement 05/04/19 12/03/23 History mg-600 mg-55 mg-5 mg tablet multivitamin 1 each PO DAILY Supplement 05/04/19 12/03/23 History omeprazole 40 mg capsule,delayed 40 mg PO DAILY 05/16/19 12/03/23 History release saw palmetto 450 mg-zinc 1 each PO DAILY Supplement 05/14/21 12/03/23 History picolinate 15 mg capsule lisinopril 5 mg tablet 2.5 mg PO DAILY 04/30/23 12/03/23 History azelastine 137 mcg (0.1 %) nasal 2 spray intranasal BID #30 mL 08/20/23 12/03/23 Rx spray aerosol duloxetine 30 mg capsule,delayed 30 mg PO HS 12/03/23 12/03/23 History release gabapentin 300 mg capsule 300 mg PO BID 12/03/23 12/03/23 History montelukast 10 mg tablet 10 mg PO HS 12/03/23 12/03/23 History New Prescriptions to Start Prescriptions: Allergies Allergy/AdvReac Type Severity Reaction Status Date / Time ciprofloxacin [From CIPRO] Allergy Mild Unknown Verified 12/03/23 15:27 allergy reaction Exam (Inpt) Vital signs and Labs for Last 24 Hours: Temp Pulse Resp BP Pulse Ox 97.9 F 94 H 18 111/69 99 12/03/23 09:16 12/03/23 10:00 12/03/23 10:00 12/03/23 10:00 12/03/23 10:00 Laboratory Results - last 24 hr 12/03/23 09:22: WBC 8.8, RBC 3.06 L, Hgb 9.5 L, Hct 28.7 L, MCV 93.8, MCH 31.2, MCHC 33.2, RDW 13.8, Plt Count 238, MPV 8.1, Neut % (Auto) 85.8 H, Lymph % (Auto) 8.8 L, [place] % (Auto) 4.3, Eos % (Auto) 0.7, Baso % (Auto) 0.4, Neut # (Auto) 7.5, Lymph # (Auto) 0.8, [place] # (Auto) 0.4, Eos # (Auto) 0.1, Baso # (Auto) 0.0, Total Counted 100, Neutrophils % (Manual) 87 H, Lymphocytes % (Manual) 8 L, Monocytes % (Manual) 3, Eosinophils % (Manual) 2, Platelet Estimate Normal, RBC Morphology Normal, PT 10.6, INR 0.98, APTT 23.8, Sodium 130 L, Potassium 4.2, Chloride 97 L, Carbon Dioxide 29, Anion Gap 8.2, BUN 14, Creatinine 0.70, Estimated Creat Clear 57, Estimated GFR 110, Est GFR ( Amer) 133, Glucose 122 H, Calcium 8.7, Total Bilirubin 0.4, AST 31, ALT 25, Alkaline Phosphatase 69, Total Protein 6.2 L, Albumin 3.8, Globulin 2.4, Albumin/Globulin Ratio 1.6 12/03/23 09:41: Stool Occult Blood Positive A 12/03/23 11:35: Hgb 7.7 L D, Hct 23.5 L 12/03/23 11:45: Urine Color Yellow, Urine Appearance Sl cloudy, Urine pH 7.0, Ur Specific [place] <= 1.005, Urine Protein Negative, Urine Glucose (UA) Negative, Urine Ketones Negative, Urine Blood Negative, Urine Nitrate Negative, Urine Bilirubin Negative, Urine Urobilinogen 0.2, Ur Leukocyte Esterase Negative I & O for Labs for Last 24 Hours: Intake & Output 12/01/23 12/02/23 12/03/23 12/04/23 11:59 11:59 11:59 11:59 Weight 140 lb Constitutional: no acute distress GI: Present soft Results Labs 12/03/23 11:35 12/03/23 09:22 Labs: Laboratory Results - last 24 hr 12/03/23 09:22: WBC 8.8, RBC 3.06 L, Hgb 9.5 L, Hct 28.7 L, MCV 93.8, MCH 31.2, MCHC 33.2, RDW 13.8, Plt Count 238, MPV 8.1, Neut % (Auto) 85.8 H, Lymph % (Auto) 8.8 L, [place] % (Auto) 4.3, Eos % (Auto) 0.7, Baso % (Auto) 0.4, Neut # (Auto) 7.5, Lymph # (Auto) 0.8, [place] # (Auto) 0.4, Eos # (Auto) 0.1, Baso # (Auto) 0.0, Total Counted 100, Neutrophils % (Manual) 87 H, Lymphocytes % (Manual) 8 L, Monocytes % (Manual) 3, Eosinophils % (Manual) 2, Platelet Estimate Normal, RBC Morphology Normal, PT 10.6, INR 0.98, APTT 23.8, Sodium 130 L, Potassium 4.2, Chloride 97 L, Carbon Dioxide 29, Anion Gap 8.2, BUN 14, Creatinine 0.70, Estimated Creat Clear 57, Estimated GFR 110, Est GFR ( Amer) 133, Glucose 122 H, Calcium 8.7, Total Bilirubin 0.4, AST 31, ALT 25, Alkaline Phosphatase 69, Total Protein 6.2 L, Albumin 3.8, Globulin 2.4, Albumin/Globulin Ratio 1.6 12/03/23 09:41: Stool Occult Blood Positive A 12/03/23 11:35: Hgb 7.7 L D, Hct 23.5 L 12/03/23 11:45: Urine Color Yellow, Urine Appearance Sl cloudy, Urine pH 7.0, Ur Specific [place] <= 1.005, Urine Protein Negative, Urine Glucose (UA) Negative, Urine Ketones Negative, Urine Blood Negative, Urine Nitrate Negative, Urine Bilirubin Negative, Urine Urobilinogen 0.2, Ur Leukocyte Esterase Negative Assessment and Plan *Assessment and plan (1) Rectal hemorrhage: Status: Acute Category: Medical Code(s): K62.5 - Hemorrhage of anus and rectum Plan Patient has findings of lower GI blood loss. Given his prior history this could be diverticular in nature or secondary to irritation from his prior low anterior resection. I do feel that inpatient admission would be reasonable. Recommend limited bowel prep and tentatively plan for flexible sigmoidoscopy tomorrow for diagnosis and potential intervention.
[2023-12-03 12:11] LABS: Squamous Epithelial Cell,Urine Occasional #/hpf (0-5)
--- NOTE | 2023-12-03 12:11 | PC.NURSE ---
called care management for admission
--- NOTE | 2023-12-03 12:44 | PC.NURSE ---
I called report to Guevara WILSON
--- NOTE | 2023-12-03 16:18 | EXP.HP ---
History of Present Illness *Admission Date: 12/03/23 *Reason for visit:: GI bleed *History of present illness: Patient is a 73-year-old male whom I have followed for quite some time and is well-known to me. He had undergone low anterior resection by Dr. Pollo Mariscal in November 2010 for rectal carcinoma and had a loop ileostomy at that time which was ultimately reversed. Patient had developed a small bowel obstruction in the distal ileum and underwent laparotomy with small bowel resection in October [address] Sy. He has had multiple subsequent colonoscopies revealing diverticulosis. Patient has had some problems with bowel irregularity for some time potentially partially due to the profoundly low coloanal anastomosis. He has had problems with intermittent rectal bleeding for many years, likely greater than 15 years. He has had numerous colonoscopies and evaluations for rectal bleeding. I had last performed colonoscopy on 01/09/2023 after he had presented to the emergency department with rectal bleeding and was referred. He was found to have evidence of colorectal anastomosis about 6 cm from the anus with visible staple and findings of pandiverticulosis. It was felt that potentially a source of his bleeding may be this irritated somewhat loose stable from his prior anastomosis and I had planned for transanal removal and oversewing of this but the patient declined. Apparently the patient had contacted the office several days ago after he had developed rectal bleeding on 12/01/2023. He was scheduled to be seen in the office today. However, he presented to the emergency department due to the bleeding and weakness. He did undergo CTA of the abdomen which revealed no evidence of any obvious active bleeding. He was found to have hemoglobin of 9.5. 1 year ago hemoglobin was 12.6. After the patient had been in the emergency department for several hours he had repeat H&H performed which revealed hemoglobin of 7.7. (above as per Dr. Lucas) The patient complains of some pain in the lower abdomen. He noticed bleeding on Thursday, he passed no stool on Thursday, he then began passing blood again today. He felt weak and dizzy which is why he presented to the ER. [facility] Disclaimer: The information contained in this section may have been updated after the patient was seen, as this information can be updated by other users. Medical History (Updated 12/03/23 @ 16:26 by BIBI Berger) Abnormal computerized axial tomography of chest Allergic rhinitis, unspecified Anxiety and depression Bilateral hearing loss Chronic cough Colon cancer Dizziness Fibrosis of lung Fluid level behind tympanic membrane of both ears History of diverticulitis History of gastroesophageal reflux (GERD) Hyperlipidemia ILD (interstitial lung disease) Impacted cerumen, bilateral Irritable bowel syndrome (IBS) Seasonal allergies Sensorineural hearing loss Tinnitus, bilateral Surgical History H/O ileostomy History of appendectomy History of colon resection History of colonoscopy Family History Diabetes Heart disease Hypertension Social History Smoking Status: Never smoker alcohol intake: never counseling provided: none substance use type: denies use current occupational status: retired Travel in the last 8 weeks: None caffeine: Yes Review of Systems Constitutional Constitutional: Denies chills, Reports fatigue, Denies fever(s), Denies headache(s) and Reports weakness Eyes Eyes: Denies blurry vision and Denies diplopia ENT Ears, Nose, Mouth, and Throat: Denies headache(s), Denies nasal congestion, Denies sore throat and Reports vertigo *Cardiovascular Cardiovascular: Denies chest pain, Reports dyspnea and Denies palpitations *Respiratory Respiratory: Denies cough and Reports dyspnea *Gastrointestinal Gastrointestinal: Reports abdominal pain, Reports diarrhea, Reports hematochezia, Reports melena, Reports nausea and Denies vomiting *Genitourinary Genitourinary: Denies difficulty urinating and Denies dysuria *Musculoskeletal Musculoskeletal: Reports arthralgias (neck pain) and Denies myalgias *Neurologic Neurologic: Reports burning sensations (feet due to neuropathy), Denies headache(s), Reports vertigo and Reports weakness Endocrine Endocrine: Reports fatigue and Denies palpitations Meds Home Medications and Allergies Home Medications Medication Instructions Recorded Confirmed Type atorvastatin 20 mg tablet 20 mg PO HS 05/03/19 12/03/23 History acetaminophen 325 mg tablet 650 mg PO TID PRN As Needed For 05/04/19 12/03/23 History Fever Or Pain ergocalciferol (vitamin D2) 10 mcg 2,000 unit PO DAILY Supplement 05/04/19 12/03/23 History (400 unit) tablet shbegzlswyn-zvugunuds-tax C-Mn 750 1 each PO DAILY Supplement 05/04/19 12/03/23 History mg-600 mg-55 mg-5 mg tablet multivitamin 1 each PO DAILY Supplement 05/04/19 12/03/23 History omeprazole 40 mg capsule,delayed 40 mg PO DAILY 05/16/19 12/03/23 History release saw palmetto 450 mg-zinc 1 each PO DAILY Supplement 05/14/21 12/03/23 History picolinate 15 mg capsule lisinopril 5 mg tablet 2.5 mg PO DAILY 04/30/23 12/03/23 History azelastine 137 mcg (0.1 %) nasal 2 spray intranasal BID #30 mL 08/20/23 12/03/23 Rx spray aerosol duloxetine 30 mg capsule,delayed 30 mg PO HS 12/03/23 12/03/23 History release gabapentin 300 mg capsule 300 mg PO BID 12/03/23 12/03/23 History montelukast 10 mg tablet 10 mg PO HS 12/03/23 12/03/23 History New Prescriptions to Start Prescriptions: Allergies Allergy/AdvReac Type Severity Reaction Status Date / Time ciprofloxacin [From CIPRO] Allergy Mild Unknown Verified 12/03/23 15:27 allergy reaction Exam Data for Last 24 hours Vital signs and Labs for Last 24 Hours: Temp Pulse Resp BP Pulse Ox O2 Del Method 98.3 F 76 17 118/63 97 Room Air 12/03/23 15:45 12/03/23 15:45 12/03/23 15:45 12/03/23 15:45 12/03/23 15:45 12/03/23 14:13 Laboratory Results - last 24 hr 12/03/23 09:22: WBC 8.8, RBC 3.06 L, Hgb 9.5 L, Hct 28.7 L, MCV 93.8, MCH 31.2, MCHC 33.2, RDW 13.8, Plt Count 238, MPV 8.1, Neut % (Auto) 85.8 H, Lymph % (Auto) 8.8 L, [place] % (Auto) 4.3, Eos % (Auto) 0.7, Baso % (Auto) 0.4, Neut # (Auto) 7.5, Lymph # (Auto) 0.8, [place] # (Auto) 0.4, Eos # (Auto) 0.1, Baso # (Auto) 0.0, Total Counted 100, Neutrophils % (Manual) 87 H, Lymphocytes % (Manual) 8 L, Monocytes % (Manual) 3, Eosinophils % (Manual) 2, Platelet Estimate Normal, RBC Morphology Normal, PT 10.6, INR 0.98, APTT 23.8, Sodium 130 L, Potassium 4.2, Chloride 97 L, Carbon Dioxide 29, Anion Gap 8.2, BUN 14, Creatinine 0.70, Estimated Creat Clear 57, Estimated GFR 110, Est GFR ( Amer) 133, Glucose 122 H, Calcium 8.7, Total Bilirubin 0.4, AST 31, ALT 25, Alkaline Phosphatase 69, Total Protein 6.2 L, Albumin 3.8, Globulin 2.4, Albumin/Globulin Ratio 1.6 12/03/23 09:41: Stool Occult Blood Positive A 12/03/23 11:35: Hgb 7.7 L D, Hct 23.5 L 12/03/23 11:45: Urine Color Yellow, Urine Appearance Sl cloudy, Urine pH 7.0, Ur Specific [place] <= 1.005, Urine Protein Negative, Urine Glucose (UA) Negative, Urine Ketones Negative, Urine Blood Negative, Urine Nitrate Negative, Urine Bilirubin Negative, Urine Urobilinogen 0.2, Ur Leukocyte Esterase Negative, Urine RBC None, Urine WBC None, Ur Squamous Epith Cells Occasional, Urine Bacteria None 12/03/23 12:09: Blood Type Confirm O Positive 12/03/23 12:17: Blood Type O Positive, Antibody Screen Negative, Crossmatch (AHG) See Detail I & O for Last 24 hours: Intake & Output 12/01/23 12/02/23 12/03/23 12/04/23 11:59 11:59 11:59 11:59 Intake Total 0 / 0 Balance 0 / 0 Weight 140 lb Constitutional Constitutional: no acute distress *Routine HEENT Exam Head: Present normocephalic and atraumatic Eye: Present EOMI and PERRL ENT: Present mucous membranes moist *Routine Neck Exam Neck: Present supple and full ROM *Routine Respiratory Exam Respiratory: Present CTA bilaterally *Routine Cardiovascular Exam Cardiovascular: Present RRR *Routine Abdominal Exam Abdominal: Present soft, normoactive bowel sounds and tenderness (bilateral lower quadrants); Absent distended *Routine Rectal Exam Rectal:: deferred *Routine Genitalia Exam Genitalia:: deferred *Routine Extremities Exam Extremities: Absent cyanosis, clubbing or edema *Routine Skin Exam Skin: Present intact; Absent erythema *Routine Neurological Exam Neurological: Present alert and oriented X3 H&P: Result Impressions Abdomen/pelvis CTA - Unremarkable CTA of the aorta and branch vessels. No bowel or inflammatory changes. Assessment and Plan *Assessment and plan (1) Lower gastrointestinal hemorrhage: Status: Acute Category: Medical Code(s): K92.2 - Gastrointestinal hemorrhage, unspecified (2) Symptomatic anemia: Status: Acute Category: Medical Code(s): D64.9 - Anemia, unspecified (3) Abdominal pain: Status: Acute Category: Medical Code(s): R10.9 - Unspecified abdominal pain (4) Diverticulosis: Status: Chronic Category: Medical Code(s): K57.90 - Diverticulosis of intestine, part unspecified, without perforation or abscess without bleeding (5) Seasonal allergies: Status: Chronic Category: Medical Code(s): J30.2 - Other seasonal allergic rhinitis (6) ILD (interstitial lung disease): Status: Chronic Category: Medical Code(s): J84.9 - Interstitial pulmonary disease, unspecified (7) History of colon cancer: Status: Acute Category: Medical Code(s): Z85.038 - Personal history of other malignant neoplasm of large intestine (8) History of diverticulitis: Status: Acute Category: Medical Code(s): Z87.19 - Personal history of other diseases of the digestive system (9) Hyperlipidemia: Status: Acute Category: Medical Code(s): E78.5 - Hyperlipidemia, unspecified (10) Irritable bowel syndrome (IBS): Status: Acute Category: Medical Code(s): K58.9 - Irritable bowel syndrome without diarrhea Plan Patient was admitted and 3 units of blood were ordered. Dr. Lucas has seen the patient with the following plan: Patient has findings of lower GI blood loss. Given his prior history this could be diverticular in nature or secondary to irritation from his prior low anterior resection. I do feel that inpatient admission would be reasonable. Recommend limited bowel prep and tentatively plan for flexible sigmoidoscopy tomorrow for diagnosis and potential intervention. Dr. Kang entry - Saw patient, agree with above note.
[2023-12-03] MEDS: PEG-ELECTROLYTE SOLN 4000ML BOTTLE 2000 ML PO (16:24)
[2023-12-03] MEDS: 0.9 % SODIUM CHLORIDE 250 ML 25 ML IV ×2 (16:25→22:43)
--- NOTE | 2023-12-03 18:32 | PC.NURSE ---
Rapid Red called because pt. felt faint after blood was taken by lab. VSS 109/60 p: 79 96% ON Ra, fsbg of 143.
[2023-12-03 18:35] LABS: POC Glucose,Bedside 143 (70-110)
--- NOTE | 2023-12-03 18:37 | PC.NURSE ---
Paging dr. Lucas and Jorge Luis for more blood from rectum of patient.
[2023-12-03 18:40] LABS: Hematocrit 24.3 % (42.0-52.0); Hemoglobin 8.3 g/dL (14.1-18.0)
--- NOTE | 2023-12-03 18:46 | PC.NURSE ---
[place] aware and orders taken.
[2023-12-03] MEDS: 0.9 % SODIUM CHLORIDE 1000ML 1,000 ML 999 ML IV ×3 (18:55→19:57)
[2023-12-03 22:11] LABS: Hematocrit 19.6 % (42.0-52.0); Hemoglobin 6.6 g/dL (14.1-18.0)
--- NOTE | 2023-12-03 22:22 | PC.NURSE ---
spoke with MD Kang about pt. critical H/H reported by lab 6.6.6, orders to give 2 units of blood on hold, stated to do CBC and BMP with am labs instead of 2 hr post H/H.
[2023-12-03] MEDS: ACETAMINOPHEN 325MG TAB 650 MG PO (23:28)
[2023-12-04] VITALS (56 sets, daily range): BP systolic 80–180; BP diastolic 40–96; PULSE 23–102; RESP 10–24; TEMP 36.4–37.2; O2SAT 93–100; BMI 24.1
--- NOTE | 2023-12-04 03:33 | EXP.ACUTE.PN ---
Subjective *Date: 12/04/23 *Time: 03:33 Interval history: Around 7 PM patient had several large bloody bowel movements and became hypotensive. He was transferred to step down and given2 Liters of NS as a bolus and the additional 2 units of PRBC were ordered to be transfused. Medical Exam Vital signs and Labs for Last 24 Hours: Vital Signs Temp Pulse Pulse Resp BP BP Pulse Ox 12/04/23 02:00 98.3 F 80 14 115/69 99 12/04/23 01:55 98.3 F 81 18 111/65 98 12/04/23 01:50 98.9 F 80 19 109/65 L 99 12/04/23 01:45 98.5 F 77 15 114/72 99 12/04/23 01:42 98.4 F 83 18 110/65 99 12/04/23 01:00 12/04/23 01:11 98.5 F 79 14 108/65 L 100 12/04/23 00:55 98.3 F 87 12 136/59 L 99 12/03/23 23:55 98.2 F 80 14 106/64 L 100 12/03/23 23:40 98.3 F 82 19 103/60 L 98 12/03/23 23:25 98.9 F 86 18 97/58 L 99 12/03/23 23:10 98.5 F 84 15 109/64 L 99 12/03/23 23:00 12/03/23 23:05 98.1 F 84 14 107/62 L 97 12/03/23 23:00 98.4 F 84 18 99/62 L 98 12/03/23 22:55 98.3 F 86 16 100/55 L 99 12/03/23 22:43 98.2 F 87 18 96/58 L 100 12/03/23 20:44 12/03/23 20:00 99 12/03/23 20:00 98.1 F 91 H 27 H 115/66 100 12/03/23 17:25 98.4 F 80 16 125/65 98 12/03/23 17:23 12/03/23 17:00 12/03/23 16:00 98.4 F 82 19 120/68 98 12/03/23 16:25 98.4 F 83 17 134/67 98 12/03/23 15:45 98.3 F 76 17 118/63 97 12/03/23 15:30 98.2 F 77 18 117/62 97 12/03/23 15:15 98.2 F 78 18 107/69 L 96 12/03/23 15:00 98.2 F 76 18 113/67 96 12/03/23 14:55 98.2 F 80 18 114/66 96 12/03/23 14:50 98.2 F 79 18 108/66 L 96 12/03/23 14:45 98.2 F 83 18 113/61 96 12/03/23 14:20 98.2 F 78 18 108/59 L 96 12/03/23 14:13 12/03/23 13:52 12/03/23 13:23 98.3 F 99 H 19 106/64 L 99 12/03/23 13:11 97.7 F 90 18 122/71 12/03/23 10:00 94 H 18 111/69 99 12/03/23 09:53 92 H 20 114/68 98 12/03/23 09:16 97.9 F 92 H 18 128/66 99 O2 Del Method 12/04/23 02:00 12/04/23 01:55 12/04/23 01:50 12/04/23 01:45 12/04/23 01:42 12/04/23 01:00 Room Air 12/04/23 01:11 12/04/23 00:55 12/03/23 23:55 12/03/23 23:40 12/03/23 23:25 12/03/23 23:10 12/03/23 23:00 Room Air 12/03/23 23:05 12/03/23 23:00 12/03/23 22:55 12/03/23 22:43 12/03/23 20:44 Room Air 12/03/23 20:00 Room Air 12/03/23 20:00 Room Air 12/03/23 17:25 12/03/23 17:23 Room Air 12/03/23 17:00 Room Air 12/03/23 16:00 Room Air 12/03/23 16:25 12/03/23 15:45 12/03/23 15:30 12/03/23 15:15 12/03/23 15:00 12/03/23 14:55 12/03/23 14:50 12/03/23 14:45 12/03/23 14:20 12/03/23 14:13 Room Air 12/03/23 13:52 Room Air 12/03/23 13:23 Room Air 12/03/23 13:11 Room Air 12/03/23 10:00 12/03/23 09:53 12/03/23 09:16 Intake and Output 12/03/23 12/03/23 12/04/23 15:59 23:59 07:59 Intake Total 0 / 1284 1284 / 1284 250 / 250 Output Total 275 / 275 Balance 0 / 1009 1009 / 1009 250 / 250 Intake: Intake, Total IV Amount 1000 / 1000 0.9 % Sodium Chloride 1000ML 1, 1000 / 1000 000 ml @ 999 mls/hr IV .Q1H1M ONE Rx#:[id number] Intake (Blood Product) Amt 0 / 284 284 / 284 250 / 250 Red Blood Cells Unit 0 / 0 [id number] Red Blood Cells Unit 0 / 0 250 / 250 [id number] Red Blood Cells Unit 0 / 284 284 / 284 [id number] Output: Output, Urine Amount 275 / 275 Other: Number of Bowel Movements 1 1 Weight 140 lb Laboratory Results - last 24 hr 12/03/23 09:22: WBC 8.8, RBC 3.06 L, Hgb 9.5 L, Hct 28.7 L, MCV 93.8, MCH 31.2, MCHC 33.2, RDW 13.8, Plt Count 238, MPV 8.1, Neut % (Auto) 85.8 H, Lymph % (Auto) 8.8 L, [place] % (Auto) 4.3, Eos % (Auto) 0.7, Baso % (Auto) 0.4, Neut # (Auto) 7.5, Lymph # (Auto) 0.8, [place] # (Auto) 0.4, Eos # (Auto) 0.1, Baso # (Auto) 0.0, Total Counted 100, Neutrophils % (Manual) 87 H, Lymphocytes % (Manual) 8 L, Monocytes % (Manual) 3, Eosinophils % (Manual) 2, Platelet Estimate Normal, RBC Morphology Normal, PT 10.6, INR 0.98, APTT 23.8, Sodium 130 L, Potassium 4.2, Chloride 97 L, Carbon Dioxide 29, Anion Gap 8.2, BUN 14, Creatinine 0.70, Estimated Creat Clear 57, Estimated GFR 110, Est GFR ( Amer) 133, Glucose 122 H, Calcium 8.7, Total Bilirubin 0.4, AST 31, ALT 25, Alkaline Phosphatase 69, Total Protein 6.2 L, Albumin 3.8, Globulin 2.4, Albumin/Globulin Ratio 1.6 12/03/23 09:41: Stool Occult Blood Positive A 12/03/23 11:35: Hgb 7.7 L D, Hct 23.5 L 12/03/23 11:45: Urine Color Yellow, Urine Appearance Sl cloudy, Urine pH 7.0, Ur Specific [place] <= 1.005, Urine Protein Negative, Urine Glucose (UA) Negative, Urine Ketones Negative, Urine Blood Negative, Urine Nitrate Negative, Urine Bilirubin Negative, Urine Urobilinogen 0.2, Ur Leukocyte Esterase Negative, Urine RBC None, Urine WBC None, Ur Squamous Epith Cells Occasional, Urine Bacteria None 12/03/23 12:09: Blood Type Confirm O Positive 12/03/23 12:17: Blood Type O Positive, Antibody Screen Negative, Crossmatch (AHG) See Detail 12/03/23 18:25: Hgb 8.3 L, Hct 24.3 L 12/03/23 18:27: POC Glucose 143 H 12/03/23 21:35: Hgb 6.6 L* D, Hct 19.6 L* I & O for Labs for Last 24 Hours: Intake & Output 12/01/23 12/02/23 12/03/23 12/04/23 23:59 23:59 23:59 23:59 Intake Total 1284 / 1284 250 / 250 Output Total 275 / 275 Balance 1009 / 1009 250 / 250 Weight 140 lb Constitutional: Present no acute distress Comment:: Resting comfortably, BP normalized with treatment Assessment and Plan *Assessment and plan (1) Lower gastrointestinal hemorrhage: Status: Acute Category: Medical Code(s): K92.2 - Gastrointestinal hemorrhage, unspecified (2) Symptomatic anemia: Status: Acute Category: Medical Code(s): D64.9 - Anemia, unspecified (3) Abdominal pain: Status: Acute Category: Medical Code(s): R10.9 - Unspecified abdominal pain (4) Diverticulosis: Status: Chronic Category: Medical Code(s): K57.90 - Diverticulosis of intestine, part unspecified, without perforation or abscess without bleeding (5) Seasonal allergies: Status: Chronic Category: Medical Code(s): J30.2 - Other seasonal allergic rhinitis (6) ILD (interstitial lung disease): Status: Chronic Category: Medical Code(s): J84.9 - Interstitial pulmonary disease, unspecified (7) History of colon cancer: Status: Acute Category: Medical Code(s): Z85.038 - Personal history of other malignant neoplasm of large intestine (8) History of diverticulitis: Status: Acute Category: Medical Code(s): Z87.19 - Personal history of other diseases of the digestive system (9) Hyperlipidemia: Status: Acute Category: Medical Code(s): E78.5 - Hyperlipidemia, unspecified (10) Irritable bowel syndrome (IBS): Status: Acute Category: Medical Code(s): K58.9 - Irritable bowel syndrome without diarrhea (11) Hypotension: Status: Acute Category: Medical Code(s): I95.9 - Hypotension, unspecified Plan Getting 3 rd unit of PRBCs now, plan for lower endoscopy in a few hours.
--- NOTE | 2023-12-04 07:07 | P.PN_ITS ---
Subjective Narrative: Patient presented to the emergency department yesterday with a 2-day history of rectal bleeding. CTA of the abdomen and pelvis revealed no evidence of any active source. When he presented to the emergency department he had a hemoglobin of 9.5. Previous hemoglobin 1 year ago was 12.6. After ongoing evaluation in the emergency department his hemoglobin was 7.7. Arrangements were made for inpatient admission. He was transfused a single unit of packed red blood cells and had a posttransfusion hemoglobin of 8.3. Patient had a syncopal episode which required initiation of rapid response . He was transferred to stepdown unit. Hemoglobin in the evening of 10/02/2024 was 6.6. He did undergo limited bowel prep. He has received a total of 3 units of packed red blood cells and follow-up hemoglobin pending. Exam Data for Last 24 hours Vital signs and Labs for Last 24 Hours: Temp Pulse Resp BP Pulse Ox O2 Del Method 97.7 F 81 19 123/75 98 Room Air 12/04/23 05:15 12/04/23 05:15 12/04/23 05:15 12/04/23 05:15 12/04/23 05:15 12/04/23 06:42 Laboratory Results - last 24 hr 12/03/23 09:22: WBC 8.8, RBC 3.06 L, Hgb 9.5 L, Hct 28.7 L, MCV 93.8, MCH 31.2, MCHC 33.2, RDW 13.8, Plt Count 238, MPV 8.1, Neut % (Auto) 85.8 H, Lymph % (Auto) 8.8 L, [place] % (Auto) 4.3, Eos % (Auto) 0.7, Baso % (Auto) 0.4, Neut # (Auto) 7.5, Lymph # (Auto) 0.8, [place] # (Auto) 0.4, Eos # (Auto) 0.1, Baso # (Auto) 0.0, Total Counted 100, Neutrophils % (Manual) 87 H, Lymphocytes % (Manual) 8 L, Monocytes % (Manual) 3, Eosinophils % (Manual) 2, Platelet Estimate Normal, RBC Morphology Normal, PT 10.6, INR 0.98, APTT 23.8, Sodium 130 L, Potassium 4.2, Chloride 97 L, Carbon Dioxide 29, Anion Gap 8.2, BUN 14, Creatinine 0.70, Estimated Creat Clear 57, Estimated GFR 110, Est GFR ( Amer) 133, Glucose 122 H, Calcium 8.7, Total Bilirubin 0.4, AST 31, ALT 25, Alkaline Phosphatase 69, Total Protein 6.2 L, Albumin 3.8, Globulin 2.4, Albumin/Globulin Ratio 1.6 12/03/23 09:41: Stool Occult Blood Positive A 12/03/23 11:35: Hgb 7.7 L D, Hct 23.5 L 12/03/23 11:45: Urine Color Yellow, Urine Appearance Sl cloudy, Urine pH 7.0, Ur Specific [place] <= 1.005, Urine Protein Negative, Urine Glucose (UA) Negative, Urine Ketones Negative, Urine Blood Negative, Urine Nitrate Negative, Urine Bilirubin Negative, Urine Urobilinogen 0.2, Ur Leukocyte Esterase Negative, U rine RBC None, Urine WBC None, Ur Squamous Epith Cells Occasional, Urine Bacteria None 12/03/23 12:09: Blood Type Confirm O Positive 12/03/23 12:17: Blood Type O Positive, Antibody Screen Negative, Crossmatch (AHG) See Detail 12/03/23 18:25: Hgb 8.3 L, Hct 24.3 L 12/03/23 18:27: POC Glucose 143 H 12/03/23 21:35: Hgb 6.6 L* D, Hct 19.6 L* I & O for Last 24 hours: Intake & Output 12/01/23 12/02/23 12/03/23 12/04/23 11:59 11:59 11:59 11:59 Intake Total 1884 / 1884 Output Total 275 / 275 Balance 1609 / 1609 Weight 140 lb 144 lb 14.4 oz Constitutional Constitutional: no acute distress Progress Note: A&P Assessment and plan (1) Lower gastrointestinal hemorrhage: Status: Acute Assessment and plan: Plan will be to proceed with upper endoscopy as well as colonoscopy as this could be rapid transit upper GI etiology although this seems less likely. But given his amount of bleeding and syncope plan to add upper endoscopy and also proceed with colonoscopy this morning for diagnostic and potentially interventional purposes. (2) Symptomatic anemia: Status: Acute (3) Abdominal pain: Status: Acute (4) Diverticulosis: Status: Chronic (5) Seasonal allergies: Status: Chronic (6) ILD (interstitial lung disease): Status: Chronic (7) History of colon cancer: Status: Acute (8) History of diverticulitis: Status: Acute (9) Hyperlipidemia: Status: Acute (10) Irritable bowel syndrome (IBS): Status: Acute (11) Hypotension: Status: Acute
[2023-12-04 07:35] LABS: Basophils % 0.2 % (0.1-2.0); Eosinophils % 0.4 % (0.1-12.0); Hematocrit 29.9 % (42.0-52.0); Lymphocytes # 0.8 K/mm3 (0.7-4.5); Lymphocytes % 10.5 % (10-50); Mean Corpuscular Hemoglobin 31.6 pg (27.0-31.2); Mean Platelet Volume 8.4 fl (7.4-10.4); Monocytes # 0.5 K/mm3 (0.1-1.0); Monocytes % 6.7 % (1.7-9.3); Neutrophils # 6.1 K/mm3 (1.8-7.8); Neutrophils % 82.2 % (37.0-80.0); Platelet Count 153 K/mm3 (142-424); Red Blood Count 3.22 M/mm3 (4.60-6.20); White Blood Count 7.5 K/mm3 (4.8-10.8)
[2023-12-04 07:51] LABS: Chloride 104 mmol/L (98-107); Potassium 4.2 mmoL/L (3.5-5.1); Sodium 132 mmol/L (136-145)
[2023-12-04 07:54] LABS: Anion Gap 6.2 mEq/L (5-15); Blood Urea Nitrogen 9 mg/dl (9-20); Calcium 7.6 mg/dl (8.4-10.2); Carbon Dioxide 26 mmol/L (22.0-30.0); Creatinine Clearance Estimated 59 mL/min (50-200); Estimated Glomerular Filt Rate 131 ml/min (>60); GFR (African American) 159 ML/MIN (>60); Glucose 96 mg/dl (74-100)
[2023-12-04 08:03] LABS: Hemoglobin 10.2 g/dL (14.1-18.0)
--- NOTE | 2023-12-04 08:05 | P.PNANES_ITS ---
[facility] Disclaimer: The information contained in this section may have been updated after the patient was seen, as this information can be updated by other users. Medical History (Updated 12/04/23 @ 03:36 by Jimbo Kang MD) Abnormal computerized axial tomography of chest Allergic rhinitis, unspecified Anxiety and depression Bilateral hearing loss Chronic cough Colon cancer Dizziness Fibrosis of lung Fluid level behind tympanic membrane of both ears History of diverticulitis History of gastroesophageal reflux (GERD) Hyperlipidemia ILD (interstitial lung disease) Impacted cerumen, bilateral Irritable bowel syndrome (IBS) Seasonal allergies Sensorineural hearing loss Tinnitus, bilateral Surgical History H/O ileostomy History of appendectomy History of colon resection History of colonoscopy Family History Diabetes Heart disease Hypertension Social History Smoking Status: Never smoker alcohol intake: never counseling provided: none substance use type: denies use current occupational status: retired Travel in the last 8 weeks: None caffeine: Yes [facility] Anesthesia Checklist Patient Identification Patient Identification: Arm Band Structural Data Admitted From: Inpatient Planned Operative Procedure/s: EGD/Colonoscopy Consent for Planned Operative Procedure(s) Verified: Yes Verified Documents: Surgical Consent and History and Physical NPO Status Verified Time NPO: 00:00 Additional verifications Anesthesia Reactions: No Hx Blood Transfusions: No Blood Transfusion Reaction: No Airway Assessment Mallampati Score:: Class II C-Spine Mobility Assessed: Yes TMJ Mobility Assessed: Yes Dentition: Edentulous Neurological Assessment Level of Consciousness: Awake and Alert Anesthesia Plan Anesthesia Risk discussed: Yes Anesthesia Plan: Verified ASA Class: III (E) Anesthesia Type: MAC
--- NOTE | 2023-12-04 09:03 | P.PCN_ITS ---
Procedure: Date: 12/04/23 Patient Date of :: 1950 Procedure Performed:: Esophagogastroduodenoscopy Total colonoscopy to terminal ileum Indications:: Patient presented to the emergency department yesterday with a 2-day history of rectal bleeding. CTA of the abdomen and pelvis revealed no evidence of any active source. When he presented to the emergency department he had a hemoglobin of 9.5. Previous hemoglobin 1 year ago was 12.6. After ongoing evaluation in the emergency department his hemoglobin was 7.7. Arrangements were made for inpatient admission. He was transfused a single unit of packed red blood cells and had a posttransfusion hemoglobin of 8.3. Patient had a syncopal episode which required initiation of rapid response . He was transferred to stepdown unit. Hemoglobin in the evening of 12/03/2023 was 6.6. He did undergo limited bowel prep. He was transfused 2 additional units of packed red blood cells for his hemoglobin of 6.6 with posttransfusion hemoglobin of 10.2. Plan was made to proceed with both upper endoscopy to rule out brisk proximal GI source as well as probable colonoscopy as likely etiology lower GI bleed. Performing Provider:: Alex Lucas MD Referring Provider:: Jimbo Kang MD Sedation:: MAC sedation Procedure:: Patient history was obtained and appropriate physical examination was performed. Patient's medications and allergies were reviewed. Informed consent was obtained after explaining the benefits, alternatives, and risks of the procedure including, but not limited to, bleeding, perforation, missed lesions, and adverse reaction to anesthesia medications. Patient was transported to endoscopy procedure room. Patient was connected to monitoring devices. Throughout the procedure the patient's blood pressure, pulse, and oxygen saturations were monitored continuously. Patient identification and planned procedure were verified by the staff. Patient was positioned in lateral decubitus position. Attention was first turned to upper endoscopy. Olympus endoscope was inserted via the oropharynx. Esophagus was cannulated. There was some mild tortuosity to the esophagus consistent with esophageal dysmotility. Gastroesophageal junction was encountered at 35 cm. Stomach was cannulated and retroflexion was performed which revealed a small to moderate approximately 4 cm sliding hiatal hernia. Gastric lumen appeared unremarkable. Pylorus was traversed. Endoscope was advanced a generous distance into the small bowel to the distal duodenum which appeared normal with no evidence of any active bleeding or recent stigmata of bleeding. Stomach was desufflated and the endoscope was withdrawn. Attention was then turned to endoscopic evaluation of the colon. Digital anorectal exam was performed. Initially endoscope was used. After insertion it was advanced to the mid colon. There is a large amount of relatively fresh clotted blood. There was blood proximal to the limit of the advancement of the endoscope. Endoscope was slowly withdrawn with very thorough trans endoscopic irrigation performed to evacuate old blood. Endoscope was then replaced with the colonoscope. Variable stiffness Olympus colonoscope was inserted and advanced under direct visualization to the cecum. Adequacy of the colonic preparation was noted. The colonoscope was advanced into the terminal ileum. There appeared to be some liquid bloody material but it was unclear if this was reflux from the colon as the colon was filled with generous amount of blood clot. Thorough evaluation a generous distance into the terminal ileum was per formed. There was no evidence of any active bleeding from proximal bowel obviously noted. Colonoscope was withdrawn into the colon. Colonoscope was slowly withdrawn through the colon with very thorough trans colonoscopic irrigation and suctioning evacuating blood clot. There were multiple diverticuli throughout the colon. There was some relatively fresh blood clot in the descending colon at approximately estimated 70 cm from the anal verge. Thorough irrigation was performed with evacuation at this point and irrigation was performed of individual diverticuli and evacuate any blood clot. There was not noted to be any active bleeding. Colonoscope was withdrawn through the remainder of the colon with ongoing thorough irrigation and evaluation. Several centimeters from the anal verge anastomosis was identified from previous low anterior resection with once again adherent food particle secondary to staple line. There is no active bleeding. Colonoscope was withdrawn. . Findings:: Findings consistent with mild esophageal dysmotility Small to moderate hiatal hernia (4 cm) Normal gastric lumen and duodenum. . Large amount of clotted blood within the colon which was essentially evacuated. Some thin bloody liquid in the terminal ileum, unclear if small bowel etiology or more likely reflux into the terminal ileum. Significant diverticuli mostly left-sided. . Recommendations:: No evidence of any definite active bleeding at this time. There was noted to be some blood in the terminal ileum. This seems to be more likely reflux from the colon but the possibility of small bowel bleeding source cannot be absolutely ruled out. He had a large amount of left-sided diverticuli and relatively fresh blood clot in the left colon which was evacuated. No evidence of any definite active bleeding. Likely diverticular bleed which has now ceased. Recommend continue to closely monitor for stability of hemoglobin. If he has recurrent evidence of ongoing bleeding may start with repeat CT angiogram of the abdomen and pelvis and if positive would need transfer for interventional radiology potentially. I would limit his diet at this time to sips of clear liquids for potential need of repeat intervention. Complications:: None immediately apparent Estimated blood obtained (mL): 100 Colonoscopy Component Colonoscopy Component Was a colonoscopy performed during today's procedure?: Yes Recommended follow up colonoscopy of at least 10 years?: No If no, follow up colonoscopy recommended in ___ years?: Uncertain Reason for not recommending >/= 10 yr follow-up interval?: See above
--- NOTE | 2023-12-04 09:18 | EXP.ANES.I ---
[facility] Anesthesia Record Part I Anesthesia Record I Intake, IV Amount: 800 Hydration: Adequate Estimated blood loss (mL): 0 Urine output (mL): 0 Blood Products used (#): none Blood Pressure: 117/68 SaO2: 100 Pulse Rate: 70 Airway Patency: Patent Respiratory Rate: 22 Temperature: 97.9 F Patient is:: Drowsy and Stable Stable to PACU at:: 09:13
[2023-12-04 16:25] LABS: Hematocrit 23.7 % (42.0-52.0)
[2023-12-04 16:28] LABS: Hemoglobin 8.1 g/dL (14.1-18.0)
--- NOTE | 2023-12-04 16:58 | CT_ITS ---
PROCEDURE INFORMATION: Exam: CTA Abdomen and Pelvis With Contrast Exam date and time: 12/04/2023 6:25 PM Age: 73 years old Clinical indication: Other: Bloody stool; Additional info: Bleeding TECHNIQUE: Imaging protocol: Computed tomographic angiography of the abdomen and pelvis with contrast. Exam focused on the arteries. 3D rendering (Not supervised by radiologist): MIP and/or 3D reconstructed images were created by the technologist. Radiation optimization: All CT scans at this facility use at least one of these dose optimization techniques: automated exposure control; mA and/or kV adjustment per patient size (includes targeted exams where dose is matched to clinical indication); or iterative reconstruction. Contrast material: ISOVUE 370; Contrast volume: 90 ml; Contrast route: INTRAVENOUS (IV); COMPARISON: CT ANGIO ABDOMEN PELVIS 12/03/2023 10:17 AM FINDINGS: Lungs: Subpleural interstitial infiltrates throughout the bilateral lower lungs suggesting chronic interstitial lung changes. Aorta: Moderate atherosclerotic calcification throughout the aorta. No evidence of aneurysm or dissection. Celiac trunk and mesenteric arteries: No occlusion or significant stenosis. Renal arteries: No occlusion or significant stenosis. Right iliac arteries: No occlusion or significant stenosis. Left iliac arteries: No occlusion or significant stenosis. Liver: No mass. Gallbladder and bile ducts: Unremarkable. No calcified stones. No ductal dilation. Pancreas: Unremarkable. No mass. No ductal dilation. Spleen: Unremarkable. No splenomegaly. Adrenal glands: Unremarkable. No mass. Kidneys and ureters: Unremarkable. No solid mass. No hydronephrosis. Stomach and bowel: Abnormal increased intraluminal density in the hepatic flexure of the colon suggests intravenous contrast extravasation compatible with active GI bleed (axial images 54-72). No other areas suspicious for active GI bleed. Bowel loops are normal in caliber. No evidence of bowel obstruction. Appendix: Appendix appears to be surgically absent. Intraperitoneal space: Unremarkable. No free air. No significant fluid collection. Lymph nodes: Unremarkable. No enlarged lymph nodes. Urinary bladder: Unremarkable. No mass. Reproductive: Unremarkable as visualized. Bones/joints: Moderate degenerative disc changes in the lower lumbar spine. No vertebral body compression or acute fracture. Soft tissues: Unremarkable. IMPRESSION: Findings suggesting active GI bleed in the hepatic flexure of the colon
--- NOTE | 2023-12-04 17:09 | PC.NURSE ---
THIS AFTERNOON PT HAD 2 BRIGHT RED STOOLS. AT 1630 PT STATED HE WASN'T FEELING WELL AND FELT LIKE HE WAS GOING TO PASS OUT. MANUAL BP WAS 80/40. HR DROPPED TO THE 40'S. PT CONTINUED TO TALK AND ANSWER QUESTIONS. NOTIFIED DR. MCGHEE AND HE STATED TO GIVE PT A LR 500 ML IVF BOLUS. PT PLACED IN [place] POSITION. ORDERED A CT ANGIO OF THE ABDOMINAL/PELVIS. RADIOLOGY NOTIFIED.
--- NOTE | 2023-12-04 18:07 | P.PN_ITS ---
Subjective Narrative: Patient had been asking to have his diet advanced this afternoon. He was given clear liquid diet. Patient did have 2 bloody stools this afternoon and he had a syncopal episode at which time he was noted to have diminished blood pressure and interestingly heart rate. However he had continued to talk and answer qu estions appropriately. He was given limited fluid bolus. He underwent a repeat H&H at this time which revealed hemoglobin of 8.1 which would be more in line of 2 unit transfusion after a hemoglobin of 6.[address] angiogram has been ordered stat due to the possibility of ongoing/recurrent bleeding. While awaiting report a code was called to the patient's room as he became hypotensive and bradycardic. At that time radiology had called with critical value on his repeat CT angiogram which revealed extravasation consistent with active bleeding at the hepatic flexure of the colon. Patient was quickly resuscitated and arrangements were made for transfusion. Plan was made for repeat colonoscopy expeditiously hopefully with intervention Exam Data for Last 24 hours Vital signs and Labs for Last 24 Hours: Temp Pulse Resp BP Pulse Ox O2 Del Method O2 Flow Rate 98.1 F 89 20 89/53 L 98 Room Air 4 12/04/23 16:00 12/04/23 17:27 12/04/23 16:00 12/04/23 17:27 12/04/23 16:00 12/04/23 17:00 12/04/23 08:09 Laboratory Results - last 24 hr 12/03/23 12:17: Blood Type O Positive, Antibody Screen Negative, Crossmatch (AHG) See Detail 12/03/23 18:25: Hgb 8.3 L, Hct 24.3 L 12/03/23 18:27: POC Glucose 143 H 12/03/23 21:35: Hgb 6.6 L* D, Hct 19.6 L* 12/04/23 07:25: WBC 7.5, RBC 3.22 L, Hgb 10.2 L D, Hct 29.9 L, MCV 93.0, MCH 31.6 H, MCHC 34.0, RDW 15.0, Plt Count 153 D, MPV 8.4, Neut % (Auto) 82.2 H, Lymph % (Auto) 10.5, [place] % (Auto) 6.7, Eos % (Auto) 0.4, Baso % (Auto) 0.2, Neut # (Auto) 6.1, Lymph # (Auto) 0.8, [place] # (Auto) 0.5, Eos # (Auto) 0.0, Baso # (Auto) 0.0, Sodium 132 L, Potassium 4.2, Chloride 104, Carbon Dioxide 26, Anion Gap 6.2, BUN 9 D, Creatinine 0.60 L, Estimated Creat Clear 59, Estimated GFR 131, Est GFR ( Amer) 159, Glucose 96 D, Calcium 7.6 L 12/04/23 16:16: Hgb 8.1 L D, Hct 23.7 L I & O for Last 24 hours: Intake & Output 12/02/23 12/03/23 12/04/23 12/05/23 11:59 11:59 11:59 11:59 Intake Total 2684 / 2684 Output Total 275 / 275 100 / 100 Balance 2409 / 2409 -100 / -100 Weight 140 lb 144 lb 13.499 oz Constitutional Comments: Patient appears pale. He is conversant. Progress Note: A&P Assessment and plan (1) Lower gastrointestinal hemorrhage: Status: Acute Assessment and plan: Patient has recurrent lower GI bleeding likely consistent with recurrent diverticular bleeding at the hepatic flexure. I will see if emergent repeat colonoscopy can be performed with possible intervention. Patient could require segmental resection of the hepatic flexure if not amenable to endoscopic measures. (2) Symptomatic anemia: Status: Acute (3) Abdominal pain: Status: Acute (4) Diverticulosis: Status: Chronic (5) Seasonal allergies: Status: Chronic (6) ILD (interstitial lung disease): Status: Chronic (7) History of colon cancer: Status: Acute (8) History of diverticulitis: Status: Acute (9) Hyperlipidemia: Status: Acute (10) Irritable bowel syndrome (IBS): Status: Acute (11) Hypotension: Status: Acute
--- NOTE | 2023-12-04 18:12 | EXP.ACUTE.PN ---
Subjective *Date: 12/04/23 *Time: 18:12 Interval history: Procedure note reviewed, patient with more rectal bleeding this afternoon. CT angiogram of abd/pelvis ordered. Medical Exam Vital signs and Labs for Last 24 Hours: Vital Signs Temp Pulse Pulse Resp BP BP Pulse Ox 12/04/23 16:00 12/04/23 16:00 98.1 F 12/04/23 16:00 98.1 F 12/04/23 17:00 12/04/23 17:27 89 89/53 L 12/04/23 16:30 48 L 80/40 L 12/04/23 16:00 100 H 12/04/23 16:00 73 20 133/69 98 12/04/23 12:00 98.1 F 12/04/23 12:00 80 12/04/23 14:53 12/04/23 13:00 86 16 138/83 98 12/04/23 12:54 12/04/23 12:30 80 16 149/76 H 99 12/04/23 11:30 73 18 137/84 99 12/04/23 11:30 73 16 137/84 99 12/04/23 11:00 70 16 147/70 H 98 12/04/23 10:53 12/04/23 08:00 85 12/04/23 10:30 69 18 133/85 97 12/04/23 10:15 70 16 150/87 H 98 12/04/23 10:00 71 16 158/78 H 99 12/04/23 09:45 74 16 145/63 H 100 12/04/23 08:00 12/04/23 09:30 98.1 F 81 20 130/96 H 96 12/04/23 09:24 67 18 126/71 100 12/04/23 09:18 72 18 110/65 100 12/04/23 09:08 97.9 F 69 18 117/68 100 12/04/23 08:00 98.1 F 12/04/23 08:09 12/04/23 08:13 12/04/23 06:42 12/04/23 05:00 12/04/23 04:00 80 12/04/23 00:00 70 12/04/23 05:15 97.7 F 81 19 123/75 98 12/04/23 04:28 12/04/23 03:00 12/04/23 04:15 98.5 F 79 19 122/75 100 12/04/23 03:45 98.4 F 75 18 115/70 97 12/04/23 02:45 98.3 F 76 20 115/72 98 12/04/23 02:30 98.5 F 80 20 117/87 100 12/04/23 02:15 98.3 F 79 16 106/65 L 98 12/04/23 02:00 98.3 F 80 14 115/69 99 12/04/23 01:55 98.3 F 81 18 111/65 98 12/04/23 01:50 98.9 F 80 19 109/65 L 99 12/04/23 01:45 98.5 F 77 15 114/72 99 12/04/23 01:42 98.4 F 83 18 110/65 99 12/04/23 01:00 12/04/23 01:11 98.5 F 79 14 108/65 L 100 12/04/23 00:55 98.3 F 87 12 136/59 L 99 12/03/23 23:55 98.2 F 80 14 106/64 L 100 12/03/23 23:40 98.3 F 82 19 103/60 L 98 12/03/23 23:25 98.9 F 86 18 97/58 L 99 12/03/23 23:10 98.5 F 84 15 109/64 L 99 12/03/23 23:00 12/03/23 23:05 98.1 F 84 14 107/62 L 97 12/03/23 23:00 98.4 F 84 18 99/62 L 98 12/03/23 22:55 98.3 F 86 16 100/55 L 99 12/03/23 22:43 98.2 F 87 18 96/58 L 100 12/03/23 20:44 12/03/23 20:00 99 12/03/23 20:00 98.1 F 91 H 27 H 115/66 100 12/04/23 09:18 97.9 F 70 22 117/68 O2 Del Method O2 Flow Rate 12/04/23 16:00 Room Air 12/04/23 16:00 12/04/23 16:00 12/04/23 17:00 Room Air 12/04/23 17:27 12/04/23 16:30 12/04/23 16:00 12/04/23 16:00 Room Air 12/04/23 12:00 12/04/23 12:00 12/04/23 14:53 Room Air 12/04/23 13:00 Room Air 12/04/23 12:54 Room Air 12/04/23 12:30 Room Air 12/04/23 11:30 Room Air 12/04/23 11:30 Room Air 12/04/23 11:00 Room Air 12/04/23 10:53 Room Air 12/04/23 08:00 12/04/23 10:30 Room Air 12/04/23 10:15 Room Air 12/04/23 10:00 Room Air 12/04/23 09:45 Room Air 12/04/23 08:00 Room Air 12/04/23 09:30 Room Air 12/04/23 09:24 Room Air 12/04/23 09:18 Room Air 12/04/23 09:08 Room Air 12/04/23 08:00 12/04/23 08:09 Nasal Cannula 4 12/04/23 08:13 Room Air 12/04/23 06:42 Room Air 12/04/23 05:00 Room Air 12/04/23 04:00 12/04/23 00:00 12/04/23 05:15 12/04/23 04:28 Room Air 12/04/23 03:00 Room Air 12/04/23 04:15 12/04/23 03:45 12/04/23 02:45 12/04/23 02:30 12/04/23 02:15 12/04/23 02:00 12/04/23 01:55 12/04/23 01:50 12/04/23 01:45 12/04/23 01:42 12/04/23 01:00 Room Air 12/04/23 01:11 12/04/23 00:55 12/03/23 23:55 12/03/23 23:40 12/03/23 23:25 12/03/23 23:10 12/03/23 23:00 Room Air 12/03/23 23:05 12/03/23 23:00 12/03/23 22:55 12/03/23 22:43 12/03/23 20:44 Room Air 12/03/23 20:00 Room Air 12/03/23 20:00 Room Air 12/04/23 09:18 Intake and Output 12/04/23 12/04/23 12/04/23 07:59 15:59 23:59 Intake Total 600 / 1400 800 / 1400 Output Total 100 / 100 Balance 600 / 1300 700 / 1300 Intake: Intake, Total IV Amount 100 / 900 800 / 900 0.9 % Sodium Chloride 250 ml @ 100 / 100 25 mls/hr IV .Q10H [facility] Rx#: [id number] Intake (Blood Product) Amt 500 / 500 Red Blood Cells Unit 250 / 250 [id number] Red Blood Cells Unit 250 / 250 [id number] Output: Output, Urine Amount 100 / 100 Other: Number of Voids 1 Number of Bowel Movements 1 1 1 Weight 144 lb 14.4 oz 144 lb 13.499 oz Patient Weight 12/04/23 23:59 Weight 144 lb 13.499 oz Laboratory Results - last 24 hr 12/03/23 12:17: Blood Type O Positive, Antibody Screen Negative, Crossmatch (AHG) See Detail 12/03/23 18:25: Hgb 8.3 L, Hct 24.3 L 12/03/23 18:27: POC Glucose 143 H 12/03/23 21:35: Hgb 6.6 L* D, Hct 19.6 L* 12/04/23 07:25: WBC 7.5, RBC 3.22 L, Hgb 10.2 L D, Hct 29.9 L, MCV 93.0, MCH 31.6 H, MCHC 34.0, RDW 15.0, Plt Count 153 D, MPV 8.4, Neut % (Auto) 82.2 H, Lymph % (Auto) 10.5, [place] % (Auto) 6.7, Eos % (Auto) 0.4, Baso % (Auto) 0.2, Neut # (Auto) 6.1, Lymph # (Auto) 0.8, [place] # (Auto) 0.5, Eos # (Auto) 0.0, Baso # (Auto) 0.0, Sodium 132 L, Potassium 4.2, Chloride 104, Carbon Dioxide 26, Anion Gap 6.2, BUN 9 D, Creatinine 0.60 L, Estimated Creat Clear 59, Estimated GFR 131, Est GFR ( Amer) 159, Glucose 96 D, Calcium 7.6 L 12/04/23 16:16: Hgb 8.1 L D, Hct 23.7 L I & O for Labs for Last 24 Hours: Intake & Output 12/01/23 12/02/23 12/03/23 12/04/23 23:59 23:59 23:59 23:59 Intake Total 1284 / 1384 1400 / 1400 Output Total 275 / 275 100 / 100 Balance 1009 / 1109 1300 / 1300 Weight 140 lb 144 lb 13.499 oz Constitutional: Present no acute distress Comment:: talkative Assessment and Plan *Assessment and plan (1) Lower gastrointestinal hemorrhage: Status: Acute Category: Medical Code(s): K92.2 - Gastrointestinal hemorrhage, unspecified (2) Symptomatic anemia: Status: Acute Category: Medical Code(s): D64.9 - Anemia, unspecified (3) Abdominal pain: Status: Acute Category: Medical Code(s): R10.9 - Unspecified abdominal pain (4) Diverticulosis: Status: Chronic Category: Medical Code(s): K57.90 - Diverticulosis of intestine, part unspecified, without perforation or abscess without bleeding (5) Seasonal allergies: Status: Chronic Category: Medical Code(s): J30.2 - Other seasonal allergic rhinitis (6) ILD (interstitial lung disease): Status: Chronic Category: Medical Code(s): J84.9 - Interstitial pulmonary disease, unspecified (7) History of colon cancer: Status: Acute Category: Medical Code(s): Z85.038 - Personal history of other malignant neoplasm of large intestine (8) History of diverticulitis: Status: Acute Category: Medical Code(s): Z87.19 - Personal history of other diseases of the digestive system (9) Hyperlipidemia: Status: Acute Category: Medical Code(s): E78.5 - Hyperlipidemia, unspecified (10) Irritable bowel syndrome (IBS): Status: Acute Category: Medical Code(s): K58.9 - Irritable bowel syndrome without diarrhea (11) Hypotension: Status: Acute Category: Medical Code(s): I95.9 - Hypotension, unspecified Plan Dr. Lucas notified of bleeding, IVF bolus, repeat H/H and CT scan ordered.
[2023-12-04] MEDS: IOPAMIDOL-370 (76%);100ML BOTTLE 90 ML IV (18:40)
[2023-12-04] MEDS: 0.9 % SODIUM CHLORIDE 50 ML VIAL IV (18:40)
[2023-12-04] MEDS: RINGERS SOLUTION,LACTATED 500 ML IV (19:21)
--- NOTE | 2023-12-04 19:35 | PC.NURSE ---
At 1914 patients heart rate dropped to 23, patient became unresponsive with agonal breathing noted. Rapid response was called to bedside. All appropriate persons responded less than one minute. Orders received to go on and initiate blood transfusion (orders placed earlier for transfusion to be on hold) Zoll pads was placed, pulse was palpable. Patient started to respond at 1925 with heart rate at 98. Breathing returned to normal, large amounts of bright red blood was noted in brief. Patient responding and stated he was not feeling well just prior to episode. Dr. Lucas at bedside, patient will be going for another colonoscopy tonight. Surgery team has been notified, family at bedside has been updated. Consent signed for colonoscopy and surgery checklist completed by STEVE Barajas.
--- NOTE | 2023-12-04 20:02 | PC.NURSE ---
Patient taken to OR at this time. Paper work and handoff report given to STEVE Palacio. Blood continues on transport to OR.
--- NOTE | 2023-12-04 20:02 | PC.NURSE ---
Patient left floor with surgery at 20:02.
[2023-12-04] MEDS: EPINEPHrine 0.1 MG/ML 10ML SYRINGE (CRASH CART) 1 MG (20:45)
--- NOTE | 2023-12-04 21:17 | P.PCN_ITS ---
Procedure: Date: 12/04/23 Patient Date of :: 1950 Procedure Performed:: Colonoscopy to right colon with control of active bleeding using injection of epinephrine and Hemoclip deployment Indications:: Patient had been admitted yesterday with significant lower GI bleeding. He actually had required transfusion. This morning he was taken for kim endoscopy. He underwent upper endoscopy which was unremarkable. He had colonoscopy performed which revealed significant amount of old blood clot throughout the colon. Thorough trans colonoscopic irrigation was performed. There were findings of pandiverticulosis but there is no evidence of any active bleeding. It was felt that this was likely a resolved diverticular bleed. This afternoon on 12/04/2023 he had 2 bloody stools. He had additional syncopal episode with diminished blood pressure and bradycardia. He was given IV fluid resuscitation. He had hemoglobin of 8.1 at that time. Patient had repeat CT angiogram ordered due to the possibility of ongoing/recurrent lower GI bleeding. While awaiting a report a code was called to the patient's room as he became hypotensive and significantly bradycardia. He quickly responded to limited resuscitation. At that time radiology had called with critical value on his repeat CT angiogram which revealed extravasation consistent with active bleeding at the hepatic flexure of the colon. Patient was quickly resuscitated and arrangements were made for transfusion and repeat colonoscopy expeditiously hopefully with intervention. Performing Provider:: Alex Lucas MD Referring Provider:: Jimbo Kang MD Sedation:: MAC sedation Procedure:: Patient history was obtained and appropriate physical examination was performed. Patient's medications and allergies were reviewed. Informed consent was obtained after explaining the benefits, alternatives, and risks of the procedure including, but not limited to, bleeding, perforation, missed lesions, and adverse reaction to anesthesia medications. Patient was transported to endoscopy procedure room. Patient was connected to monitoring devices. Throughout the procedure the patient's blood pressure, pulse, and oxygen saturations were monitored continuously. Patient identification and planned procedure were verified by the staff. Patient was positioned in lateral decubitus position. Digital anorectal exam was performed. Variable stiffness Olympus colonoscope was inserted and advanced under direct visualization to the cecum. Adequacy of the colonic preparation was noted. The colonoscope was advanced with thorough trans colono scopic irrigation and suctioning to evacuate old blood. It was noted at the hepatic flexure there was relatively fresh blood and ongoing colonoscopic surveillance revealed significant active extravasation. Limited evacuation of blood was performed. Several cc of epinephrine was then injected submucosally around this area. This resulted in some decrease in the extravasation. Hemoclip was then deployed at the side which appeared to be bleeding diverticulum. This resulted in complete hemostasis. Thorough irrigation and suctioning was performed. The colonoscope was able to be advanced proximal to this but not all the way to the cecum. It was then withdrawn to the area in question and additional epinephrine was injected. Several additional hemoclips were deployed at the site for assurance of hemostasis. It was observed for quite some time and it appeared to be hemostatic. Several cc of Mile ink was injected at the site of bleeding to ermias the area in the event that the patient required resection. Colonoscope was then withdrawn through the remainder of the colon with thorough trans colonoscopic irrigation to evacuate any old blood. Colonoscope was withdrawn. . Findings:: Pandiverticulosis Significant amount of blood within the colon Active arterial extravasation at the hepatic flexure, hemostasis achieved with injection of epinephrine followed by Hemoclip deployment x 3. Site marked with Mile ink. Recommendations:: Continue close monitoring and transfusion as needed Complications:: None immediately apparent Estimated blood obtained (mL): 500 Colonoscopy Component Colonoscopy Component Was a colonoscopy performed during today's procedure?: Yes Recommended follow up colonoscopy of at least 10 years?: No If no, follow up colonoscopy recommended in ___ years?: Not applicable Reason for not recommending >/= 10 yr follow-up interval?: Not applicable
--- NOTE | 2023-12-04 21:37 | PC.NURSE ---
Patient arrived back on floor from OR at 21:31.
--- NOTE | 2023-12-04 21:50 | PC.NURSE ---
Patient back from surgery. Resting in bed comfortably. Blood pressure 157/77, heart rate 77, oxygen 100% @ 2LNC, respirations 22, Temp 98.1 axillary.
--- NOTE | 2023-12-04 21:55 | P.PNANES_ITS ---
[facility] Anesthesia Record Part I Anesthesia Record I Intake, IV Amount: 1,000 Hydration: Adequate Estimated blood loss (mL): 50 Urine output (mL): 0 Blood Products used (#): PRBC's (2) Blood Pressure: 171/70 SaO2: 99 (on 4L/min NC) Pulse Rate: 88 Airway Patency: Patent Respiratory Rate: 18 Temperature: 98.5 F Patient is:: Drowsy, Nasal O2 (4L/min) and Stable Stable to PACU at:: 21:39
--- NOTE | 2023-12-04 22:04 | SUR.PHASEII ---
2128- detailed report called to azalea ordaz on [facility]. 2130- pt left in stable condition with azalea ordaz. VSS, family at bedside.
--- NOTE | 2023-12-04 22:04 | SUR.OPER ---
2002- viri Solis controlling and documenting admin of blood vitals. One unit coming from the floor completed by VIRI. Additional 2 units transfused by viri Solis. Vitals recorded by this nurse complete in the [facility].
[2023-12-04 22:28] LABS: Hematocrit 30.3 % (42.0-52.0)
[2023-12-04 22:32] LABS: Hemoglobin 10.4 g/dL (14.1-18.0)
--- NOTE | 2023-12-04 23:02 | PC.NURSE ---
PT WAS NOT IN ROOM AT 1999, WAS IN SURGERY
[2023-12-05] VITALS (18 sets, daily range): BP systolic 96–141; BP diastolic 58–73; PULSE 77–105; RESP 18–20; TEMP 36.9–37.4; O2SAT 94–100; BMI 24.1
--- NOTE | 2023-12-05 06:18 | PC.NURSE ---
Patient has done well since procedure this shift. Has had one large bloody stool after procedure, none has been noted since. Urine output has been adequate. Vitals have remained stable. Patient did have several episodes of confusion, was uncertain of where he was or what was going on, was able to be redirected. No complaints of pain or discomfort noted. Call valle, bedside table and personal belongings all with in reach. Bed alarm is on and working for patient will attempt to get up very quickly and given anesthesia less than 12 hours ago he is still unsteady.
[2023-12-05 07:15] LABS: Basophils % 0.1 % (0.1-2.0); Eosinophils % 0.2 % (0.1-12.0); Hematocrit 32.3 % (42.0-52.0); Hemoglobin 11.4 g/dL (14.1-18.0); Lymphocytes # 0.6 K/mm3 (0.7-4.5); Lymphocytes % 4.9 % (10-50); Mean Corpuscular HGB Conc 35.1 g/dL (31.8-35.4); Mean Corpuscular Hemoglobin 31.1 pg (27.0-31.2); Mean Corpuscular Volume 88.5 fl (80-94); Mean Platelet Volume 8.9 fl (7.4-10.4); Monocytes # 0.8 K/mm3 (0.1-1.0); Monocytes % 7.4 % (1.7-9.3); Neutrophils # 9.8 K/mm3 (1.8-7.8); Neutrophils % 87.4 % (37.0-80.0); Platelet Count 91 K/mm3 (142-424); Red Blood Count 3.65 M/mm3 (4.60-6.20); Red Cell Distribution Width 14.7 % (11.5-17.5); White Blood Count 11.2 K/mm3 (4.8-10.8)
[2023-12-05 07:19] LABS: MANUAL DIFFERENTIAL MANUAL DIFFERENTIAL (MANUAL DIFF)
[2023-12-05 07:20] LABS: Chloride 95 mmol/L (98-107); Sodium 123 mmol/L (136-145)
[2023-12-05 07:23] LABS: Blood Urea Nitrogen 4 mg/dl (9-20); Carbon Dioxide 27 mmol/L (22.0-30.0); Creatinine Clearance Estimated 59 mL/min (50-200); Estimated Glomerular Filt Rate 131 ml/min (>60); GFR (African American) 159 ML/MIN (>60)
[2023-12-05 07:24] LABS: Calcium 6.7 mg/dl (8.4-10.2); Glucose 107 mg/dl (74-100)
[2023-12-05 08:38] LABS: Lymphocytes % 2 % (10-50); Monocytes % 5 % (2-9); Neutrophils % 89 % (42-76); Total Cells Counted 100
[2023-12-05 08:40] LABS: Platelet Estimate Slight Decrease; RBC Morphology Normal
--- NOTE | 2023-12-05 09:22 | EXP.ACUTE.PN ---
Subjective *Date: 12/05/23 *Time: 09:22 Interval history: Events from last night discussed with Dr. Lucas and Dr. Rocha. Patient's source of bleeding was identified and treated. He feels better this morning. Medical Exam Vital signs and Labs for Last 24 Hours: Vital Signs Temp Pulse Pulse Resp BP BP Pulse Ox 12/05/23 09:00 12/05/23 07:50 91 H 96 12/05/23 08:30 89 18 118/68 94 L 12/05/23 07:21 98.9 F 12/05/23 06:00 98.4 F 95 H 20 123/71 97 12/05/23 04:00 100 H 12/05/23 04:00 98.4 F 98 H 18 141/72 H 100 12/05/23 00:00 80 12/05/23 02:00 98.4 F 90 18 134/73 97 12/05/23 00:00 77 18 123/73 98 12/04/23 23:00 12/04/23 22:00 98.1 F 77 24 162/91 H 100 12/04/23 21:49 98.0 F 83 24 157/77 H 99 12/04/23 22:00 98.1 F 77 22 162/91 H 100 12/04/23 21:34 98.1 F 92 H 20 129/82 12/04/23 21:53 12/04/23 21:30 98.2 F 87 16 174/77 H 99 12/04/23 21:15 98.3 F 91 H 16 180/86 H 99 12/04/23 21:00 98.6 F 90 16 170/76 H 95 12/04/23 21:00 98.5 F 88 18 171/70 H 99 12/04/23 20:53 98.6 F 90 18 170/74 H 99 12/04/23 20:43 98.6 F 92 H 18 121/56 L 100 12/04/23 20:38 98.6 F 88 18 163/70 H 99 12/04/23 20:49 98.5 F 81 18 175/89 H 100 12/04/23 20:40 98.6 F 92 H 18 121/56 L 100 12/04/23 20:35 99.0 F 80 18 163/70 H 100 12/04/23 20:35 99.0 F 76 14 156/67 H 99 12/04/23 20:25 99.0 F 80 14 117/53 L 99 12/04/23 20:10 99.0 F 92 H 14 110/71 99 12/04/23 19:25 97.8 F 98 H 16 99/63 L 98 12/04/23 19:14 97.6 F 23 L 10 L 87/51 L 93 L 12/04/23 19:55 99.0 F 92 H 14 95/62 L 97 12/04/23 19:50 98.7 F 91 H 12 99/57 L 99 12/04/23 19:45 98.3 F 94 H 14 100/59 L 97 12/04/23 19:41 98.3 F 94 H 12 99/56 L 99 12/04/23 19:32 98.7 F 92 H 14 104/56 L 96 12/04/23 18:41 12/04/23 18:00 102 H 18 125/61 96 12/04/23 16:00 12/04/23 16:00 98.1 F 12/04/23 16:00 98.1 F 12/04/23 17:00 12/04/23 17:27 89 89/53 L 12/04/23 16:30 48 L 80/40 L 12/04/23 16:00 100 H 12/04/23 16:00 73 20 133/69 98 12/04/23 12:00 98.1 F 12/04/23 12:00 80 12/04/23 14:53 12/04/23 13:00 86 16 138/83 98 12/04/23 12:54 12/04/23 12:30 80 16 149/76 H 99 12/04/23 11:30 73 18 137/84 99 12/04/23 11:30 73 16 137/84 99 12/04/23 11:00 70 16 147/70 H 98 12/04/23 10:53 12/04/23 10:30 69 18 133/85 97 12/04/23 10:15 70 16 150/87 H 98 12/04/23 10:00 71 16 158/78 H 99 12/04/23 09:45 74 16 145/63 H 100 12/04/23 09:30 98.1 F 81 20 130/96 H 96 12/04/23 09:24 67 18 126/71 100 12/04/23 21:58 98.5 F 88 18 171/70 H O2 Del Method O2 Flow Rate 12/05/23 09:00 Room Air 12/05/23 07:50 Room Air 12/05/23 08:30 Room Air 12/05/23 07:21 12/05/23 06:00 Room Air 12/05/23 04:00 12/05/23 04:00 Nasal Cannula 2 12/05/23 00:00 12/05/23 02:00 Nasal Cannula 2 12/05/23 00:00 Nasal Cannula 2 12/04/23 23:00 Room Air 12/04/23 22:00 Room Air 12/04/23 21:49 12/04/23 22:00 12/04/23 21:34 12/04/23 21:53 Nasal Cannula 2 12/04/23 21:30 Nasal Cannula 2 12/04/23 21:15 Nasal Cannula 2 12/04/23 21:00 Nasal Cannula 2 12/04/23 21:00 12/04/23 20:53 12/04/23 20:43 12/04/23 20:38 12/04/23 20:49 12/04/23 20:40 12/04/23 20:35 12/04/23 20:35 12/04/23 20:25 12/04/23 20:10 12/04/23 19:25 Room Air 12/04/23 19:14 Room Air 12/04/23 19:55 12/04/23 19:50 12/04/23 19:45 12/04/23 19:41 12/04/23 19:32 12/04/23 18:41 Room Air 12/04/23 18:00 Room Air 12/04/23 16:00 Room Air 12/04/23 16:00 12/04/23 16:00 12/04/23 17:00 Room Air 12/04/23 17:27 12/04/23 16:30 12/04/23 16:00 12/04/23 16:00 Room Air 12/04/23 12:00 12/04/23 12:00 12/04/23 14:53 Room Air 12/04/23 13:00 Room Air 12/04/23 12:54 Room Air 12/04/23 12:30 Room Air 12/04/23 11:30 Room Air 12/04/23 11:30 Room Air 12/04/23 11:00 Room Air 12/04/23 10:53 Room Air 12/04/23 10:30 Room Air 12/04/23 10:15 Room Air 12/04/23 10:00 Room Air 12/04/23 09:45 Room Air 12/04/23 09:30 Room Air 12/04/23 09:24 Room Air 12/04/23 21:58 Intake and Output 12/04/23 12/05/23 12/05/23 23:59 07:59 15:59 Intake Total 1541 / 2941 240 / 240 Output Total 200 / 850 740 / 1365 625 / 1365 Balance 1341 / 2091 -500 / -1125 -625 / -1125 Intake: Intake, Oral Amount 240 / 240 Intake, Total IV Amount 1000 / 1900 Intake (Blood Product) Amt 541 / 1041 Red Blood Cells Unit 250 / 250 [id number] Red Blood Cells Unit 0 / 0 [id number] Red Blood Cells Unit 291 / 291 [id number] Output: Output, Urine Amount 200 / 850 740 / 1365 625 / 1365 Other: Number of Unmeasured Voids 1 0 0 Number of Bowel Movements 1 Weight 145 lb 1.027 oz Patient Weight 12/05/23 23:59 Weight 145 lb 1.027 oz Laboratory Results - last 24 hr 12/03/23 12:17: Blood Type O Positive, Antibody Screen Negative, Crossmatch (AHG) See Detail 12/04/23 16:16: Hgb 8.1 L D, Hct 23.7 L 12/04/23 22:02: Hgb 10.4 L D, Hct 30.3 L 12/05/23 06:32: WBC 11.2 H D, RBC 3.65 L, Hgb 11.4 L, Hct 32.3 L, MCV 88.5, MCH 31.1, MCHC 35.1, RDW 14.7, Plt Count 91 L D, MPV 8.9, Neut % (Auto) 87.4 H, Lymph % (Auto) 4.9 L, [place] % (Auto) 7.4, Eos % (Auto) 0.2, Baso % (Auto) 0.1, Neut # (Auto) 9.8 H, Lymph # (Auto) 0.6 L, [place] # (Auto) 0.8, Eos # (Auto) 0.0, Baso # (Auto) 0.0, Total Counted 100, Neutrophils % (Manual) 89 H, Band Neutrophils % 4.0, Lymphocytes % (Manual) 2 L, Monocytes % (Manual) 5, Platelet Estimate Slight decrease, RBC Morphology Normal, Sodium 123 L, Potassium 3.0 L D, Chloride 95 L, Carbon Dioxide 27, Anion Gap 4.0 L, BUN 4 L D, Creatinine 0.60 L, Estimated Creat Clear 59, Estimated GFR 131, Est GFR ( Amer) 159, Glucose 107 H, Calcium 6.7 L I & O for Labs for Last 24 Hours: Intake & Output 12/02/23 12/03/23 12/04/23 12/05/23 23:59 23:59 23:59 23:59 Intake Total 1284 / 1384 2941 / 2941 240 / 240 Output Total 275 / 275 300 / 850 1365 / 1365 Balance 1009 / 1109 2641 / 2091 -1125 / -1125 Weight 140 lb 144 lb 13.499 oz 145 lb 1.027 oz Constitutional: Present no acute distress Respiratory: Present normal respiratory effort Cardiac: Present Reg Rate and Rhythm GI: Present normal bowel sounds; Absent tenderness Extremities: Present normal inspection and full ROM Skin: Present intact; Absent erythema Neuro: Present Grossly Intact and moves all extremities Assessment and Plan *Assessment and plan (1) Lower gastrointestinal hemorrhage: Status: Acute Category: Medical Code(s): K92.2 - Gastrointestinal hemorrhage, unspecified (2) Symptomatic anemia: Status: Acute Category: Medical Code(s): D64.9 - Anemia, unspecified (3) Abdominal pain: Status: Acute Category: Medical Code(s): R10.9 - Unspecified abdominal pain (4) Diverticulosis: Status: Chronic Category: Medical Code(s): K57.90 - Diverticulosis of intestine, part unspecified, without perforation or abscess without bleeding (5) Seasonal allergies: Status: Chronic Category: Medical Code(s): J30.2 - Other seasonal allergic rhinitis (6) ILD (interstitial lung disease): Status: Chronic Category: Medical Code(s): J84.9 - Interstitial pulmonary disease, unspecified (7) History of colon cancer: Status: Acute Category: Medical Code(s): Z85.038 - Personal history of other malignant neoplasm of large intestine (8) History of diverticulitis: Status: Acute Category: Medical Code(s): Z87.19 - Personal history of other diseases of the digestive system (9) Hyperlipidemia: Status: Acute Category: Medical Code(s): E78.5 - Hyperlipidemia, unspecified (10) Irritable bowel syndrome (IBS): Status: Acute Category: Medical Code(s): K58.9 - Irritable bowel syndrome without diarrhea (11) Hypotension: Status: Acute Category: Medical Code(s): I95.9 - Hypotension, unspecified (12) Hypokalemia: Status: Acute Category: Medical Code(s): E87.6 - Hypokalemia Plan Patient has improved, appreciates surgical intervention, replace potassium, monitor labs.
--- NOTE | 2023-12-05 10:46 | EXP.SURG.PN ---
Subjective Narrative: Patient states he feels tired . Passed some watery bloody stools. Denies abdominal pain. Exam Data for Last 24 hours Vital signs and Labs for Last 24 Hours: Temp Pulse Resp BP Pulse Ox O2 Del Method O2 Flow Rate 98.9 F 89 18 118/68 94 L Room Air 2 12/05/23 07:21 12/05/23 08:30 12/05/23 08:30 12/05/23 08:30 12/05/23 08:30 12/05/23 09:00 12/05/23 04:00 Laboratory Results - last 24 hr 12/03/23 12:17: Blood Type O Positive, Antibody Screen Negative, Crossmatch (AHG) See Detail 12/04/23 16:16: Hgb 8.1 L D, Hct 23.7 L 12/04/23 22:02: Hgb 10.4 L D, Hct 30.3 L 12/05/23 06:32: WBC 11.2 H D, RBC 3.65 L, Hgb 11.4 L, Hct 32.3 L, MCV 88.5, MCH 31.1, MCHC 35.1, RDW 14.7, Plt Count 91 L D, MPV 8.9, Neut % (Auto) 87.4 H, Lymph % (Auto) 4.9 L, [place] % (Auto) 7.4, Eos % (Auto) 0.2, Baso % (Auto) 0.1, Neut # (Auto) 9.8 H, Lymph # (Auto) 0.6 L, [place] # (Auto) 0.8, Eos # (Auto) 0.0, Baso # (Auto) 0.0, Total Counted 100, Neutrophils % (Manual) 89 H, Band Neutrophils % 4.0, Lymphocytes % (Manual) 2 L, Monocytes % (Manual) 5, Platelet Estimate Slight decrease, RBC Morphology Normal, Sodium 123 L, Potassium 3.0 L D, Chloride 95 L, Carbon Dioxide 27, Anion Gap 4.0 L, BUN 4 L D, Creatinine 0.60 L, Estimated Creat Clear 59, Estimated GFR 131, Est GFR ( Amer) 159, Glucose 107 H, Calcium 6.7 L I & O for Last 24 hours: Intake & Output 12/02/23 12/03/23 12/04/23 12/05/23 11:59 11:59 11:59 11:59 Intake Total 2684 / 2684 1781 / 1781 Output Total 275 / 275 1665 / 1665 Balance 2409 / 2409 116 / 116 Weight 140 lb 144 lb 13.499 oz 145 lb 1.027 oz *Routine Abdominal Exam Abdominal: Present soft; Absent tenderness Progress Note: A&P Assessment and plan (1) Lower gastrointestinal hemorrhage: Status: Acute Assessment and plan: Hgb stable after intervention for diverticular bleeding. Continue to monitor. will advance diet to full liquids. Monitor labs. (2) Symptomatic anemia: Status: Acute (3) Abdominal pain: Status: Acute (4) Diverticulosis: Status: Chronic (5) Seasonal allergies: Status: Chronic (6) ILD (interstitial lung disease): Status: Chronic (7) History of colon cancer: Status: Acute (8) History of diverticulitis: Status: Acute (9) Hyperlipidemia: Status: Acute (10) Irritable bowel syndrome (IBS): Status: Acute (11) Hypotension: Status: Acute (12) Hypokalemia: Status: Acute
[2023-12-05] MEDS: POTASSIUM CHLORIDE 20MEQ TAB 20 MEQ PO ×3 (11:07→20:13)
[2023-12-05] MEDS: ONDANSETRON 4MG/2ML VIAL 4 MG IV (11:19)
--- NOTE | 2023-12-05 18:13 | PC.NURSE ---
Pt offered 1800 singulair. pt states he hasn't taken that for a while . pt declined admin of meds
[2023-12-05 19:05] LABS: Hematocrit 28.1 % (42.0-52.0)
[2023-12-05 19:12] LABS: Hemoglobin 10.3 g/dL (14.1-18.0)
[2023-12-05] MEDS: ATORVASTATIN 20MG TABLET 20 MG PO (20:13)
[2023-12-05] MEDS: PANTOPRAZOLE 40MG TABLET 40 MG PO (20:13)
[2023-12-06] VITALS (12 sets, daily range): BP systolic 104–121; BP diastolic 64–74; PULSE 75–90; RESP 14–24; TEMP 36.9–37.3; O2SAT 92–96; BMI 24.1
--- NOTE | 2023-12-06 05:24 | PC.NURSE ---
Patient has had a good shift. Has been able to rest on and off. Patinet is AxO x3 and continues to be on Room Air. Patient has not had any bowel movements this shift. Patient has not had any complaints.
[2023-12-06 07:10] LABS: Basophils % 0.2 % (0.1-2.0); Eosinophils % 0.5 % (0.1-12.0); Hematocrit 27.7 % (42.0-52.0); Lymphocytes # 0.5 K/mm3 (0.7-4.5); Lymphocytes % 4.9 % (10-50); Mean Corpuscular Hemoglobin 31.9 pg (27.0-31.2); Mean Corpuscular Volume 88.5 fl (80-94); Mean Platelet Volume 8.2 fl (7.4-10.4); Monocytes # 0.6 K/mm3 (0.1-1.0); Monocytes % 5.9 % (1.7-9.3); Neutrophils # 8.4 K/mm3 (1.8-7.8); Neutrophils % 88.6 % (37.0-80.0); Platelet Count 125 K/mm3 (142-424); Red Blood Count 3.13 M/mm3 (4.60-6.20); Red Cell Distribution Width 14.6 % (11.5-17.5); White Blood Count 9.5 K/mm3 (4.8-10.8)
[2023-12-06 07:11] LABS: Chloride 97 mmol/L (98-107); Potassium 3.8 mmoL/L (3.5-5.1); Sodium 123 mmol/L (136-145)
[2023-12-06 07:14] LABS: Anion Gap 2.8 mEq/L (5-15); Blood Urea Nitrogen 5 mg/dl (9-20); Calcium 7.3 mg/dl (8.4-10.2); Carbon Dioxide 27 mmol/L (22.0-30.0); Creatinine Clearance Estimated 59 mL/min (50-200); Estimated Glomerular Filt Rate 110 ml/min (>60); GFR (African American) 133 ML/MIN (>60); Glucose 99 mg/dl (74-100)
[2023-12-06 07:40] LABS: MANUAL DIFFERENTIAL MANUAL DIFFERENTIAL (MANUAL DIFF)
--- NOTE | 2023-12-06 08:21 | EXP.ACUTE.PN ---
Subjective *Date: 12/06/23 *Time: 08:21 Interval history: Patient feels a little better today, had full liquids for breakfast. Medical Exam Vital signs and Labs for Last 24 Hours: Vital Signs Temp Pulse Pulse Resp BP Pulse Ox O2 Del Method 12/06/23 08:00 85 20 111/65 95 Room Air 12/06/23 07:56 Room Air 12/06/23 07:29 98.8 F 12/06/23 06:52 Room Air 12/06/23 06:00 76 17 121/74 95 Room Air 12/06/23 05:00 Room Air 12/06/23 04:00 86 12/06/23 00:00 83 12/06/23 04:00 99.1 F 83 21 116/71 94 L 12/06/23 03:00 Room Air 12/06/23 02:00 86 21 113/67 92 L Room Air 12/06/23 01:00 Room Air 12/06/23 00:00 98.9 F 24 109/64 L 96 12/05/23 23:00 Room Air 12/05/23 20:00 83 12/05/23 21:00 Room Air 12/05/23 20:00 Room Air 12/05/23 22:00 93 H 20 113/65 96 Room Air 12/05/23 20:00 98.5 F 84 20 113/68 95 Room Air 12/05/23 18:52 Room Air 12/05/23 18:00 93 H 18 114/70 95 Room Air 12/05/23 17:30 95 H 94 L Room Air 12/05/23 17:29 Room Air 12/05/23 16:00 91 H 18 104/58 L 94 L Room Air 12/05/23 16:00 95 H 12/05/23 15:41 Room Air 12/05/23 15:26 99.2 F 12/05/23 14:00 93 H 20 105/58 L 94 L Room Air 12/05/23 13:50 Room Air 12/05/23 10:00 95 H 18 114/67 96 Room Air 12/05/23 12:00 90 12/05/23 11:15 Room Air 12/05/23 12:00 95 H 18 96/62 L 96 Room Air 12/05/23 11:12 99.3 F 12/05/23 09:00 Room Air 12/05/23 08:30 89 18 118/68 94 L Room Air Intake and Output 12/05/23 12/06/23 12/06/23 23:59 07:59 15:59 Intake Total 240 / 870 620 / 620 Output Total 850 / 2365 875 / 875 Balance -610 / -1495 -255 / -255 Intake: Intake, Oral Amount 240 / 870 620 / 620 Output: Output, Urine Amount 850 / 2365 875 / 875 Other: Number of Unmeasured Voids 0 0 Weight 145 lb 1.027 oz Patient Weight 12/06/23 23:59 Weight 145 lb 1.027 oz Laboratory Results - last 24 hr 12/05/23 06:32: Total Counted 100, Neutrophils % (Manual) 89 H, Band Neutrophils % 4.0, Lymphocytes % (Manual) 2 L, Monocytes % (Manual) 5, Platelet Estimate Slight decrease, RBC Morphology Normal 12/05/23 18:30: Hgb 10.3 L, Hct 28.1 L 12/06/23 06:28: WBC 9.5, RBC 3.13 L, Hgb 10.0 L, Hct 27.7 L, MCV 88.5, MCH 31.9 H, MCHC 36.0 H, RDW 14.6, Plt Count 125 L D, MPV 8.2, Neut % (Auto) 88.6 H, Lymph % (Auto) 4.9 L, [place] % (Auto) 5.9, Eos % (Auto) 0.5, Baso % (Auto) 0.2, Neut # (Auto) 8.4 H, Lymph # (Auto) 0.5 L, [place] # (Auto) 0.6, Eos # (Auto) 0.0, Baso # (Auto) 0.0, Sodium 123 L, Potassium 3.8 D, Chloride 97 L, Carbon Dioxide 27, Anion Gap 2.8 L, BUN 5 L, Creatinine 0.70, Estimated Creat Clear 59, Estimated GFR 110, Est GFR ( Amer) 133, Glucose 99, Calcium 7.3 L I & O for Labs for Last 24 Hours: Intake & Output 12/03/23 12/04/23 12/05/23 12/06/23 23:59 23:59 23:59 23:59 Intake Total 1284 / 1384 2941 / 2941 720 / 870 620 / 620 Output Total 275 / 275 300 / 850 2365 / 2365 875 / 875 Balance 1009 / 1109 2641 / 2091 -1645 / -1495 -255 / -255 Weight 140 lb 144 lb 13.499 oz 145 lb 1.027 oz 145 lb 1.027 oz Constitutional: Present no acute distress Respiratory: Present normal respiratory effort Cardiac: Present Reg Rate and Rhythm GI: Present normal bowel sounds; Absent tenderness Extremities: Present normal inspection and full ROM Skin: Present intact; Absent erythema Neuro: Present Grossly Intact and moves all extremities Assessment and Plan *Assessment and plan (1) Lower gastrointestinal hemorrhage: Status: Acute Category: Medical Code(s): K92.2 - Gastrointestinal hemorrhage, unspecified (2) Symptomatic anemia: Status: Acute Category: Medical Code(s): D64.9 - Anemia, unspecified (3) Abdominal pain: Status: Acute Category: Medical Code(s): R10.9 - Unspecified abdominal pain (4) Diverticulosis: Status: Chronic Category: Medical Code(s): K57.90 - Diverticulosis of intestine, part unspecified, without perforation or abscess without bleeding (5) Seasonal allergies: Status: Chronic Category: Medical Code(s): J30.2 - Other seasonal allergic rhinitis (6) ILD (interstitial lung disease): Status: Chronic Category: Medical Code(s): J84.9 - Interstitial pulmonary disease, unspecified (7) History of colon cancer: Status: Acute Category: Medical Code(s): Z85.038 - Personal history of other malignant neoplasm of large intestine (8) History of diverticulitis: Status: Acute Category: Medical Code(s): Z87.19 - Personal history of other diseases of the digestive system (9) Hyperlipidemia: Status: Acute Category: Medical Code(s): E78.5 - Hyperlipidemia, unspecified (10) Irritable bowel syndrome (IBS): Status: Acute Category: Medical Code(s): K58.9 - Irritable bowel syndrome without diarrhea (11) Hypotension: Status: Acute Category: Medical Code(s): I95.9 - Hypotension, unspecified (12) Hypokalemia: Status: Acute Category: Medical Code(s): E87.6 - Hypokalemia Plan Potassium is normal, diet per surgery.
[2023-12-06] MEDS: POTASSIUM CHLORIDE 20MEQ TAB 20 MEQ PO ×3 (09:20→20:50)
[2023-12-06 09:50] LABS: Clostridium Difficile A/B, PCR Detected (NotDetected)
[2023-12-06 09:51] LABS: Norovirus Detected (NotDetected)
[2023-12-06 09:52] LABS: Lymphocytes % 2 % (10-50); Monocytes % 4 % (2-9); Neutrophils % 93 % (42-76); Total Cells Counted 100
[2023-12-06 09:58] LABS: Microcytosis 1+; Platelet Estimate Slight Decrease; Poikilocytosis 1+
[2023-12-06 10:03] LABS: Anisocytosis 1+; Burr Cells 1+
[2023-12-06] MEDS: metroNIDAZOLE 500 MG TABLET PO ×3 (10:15→20:50)
--- NOTE | 2023-12-06 17:20 | PC.NURSE ---
patient is alert and oriented x4, remains on room air, and vital signs are stable. Patient has had an uneventful shift, he was switched from a full liquid to a low-residue diet per MD order. No complaints at this time.
[2023-12-06] MEDS: PANTOPRAZOLE 40MG TABLET 40 MG PO (20:50)
[2023-12-06] MEDS: ATORVASTATIN 20MG TABLET 20 MG PO (20:50)
[2023-12-06 21:17] LABS: POC Glucose,Bedside 135 (70-110)
[2023-12-07] VITALS: BP 128/73; PULSE 82; PULSE 86; RESP 17; TEMP 36.8; O2SAT 94
[2023-12-07 04:00] VITALS: BP 103/76; PULSE 80; PULSE 82; RESP 20; TEMP 37.7; O2SAT 97; BMI 23.7
[2023-12-07] MEDS: ACETAMINOPHEN 325MG TAB 650 MG PO (05:02)
--- NOTE | 2023-12-07 06:27 | PC.NURSE ---
Pt did well through the night, did have a small misty colored, bloody BM. PT WAS DIAPHORETIC AT THE BEGINNING OF SHIFT, SUGAR WAS CHECKED 135 AND VITALS ALL WNL. PT HAD TEMP OF 99.8 THIS AM. TYLENOL WAS ADMINISTERED. CALL LIGHT WITHIN REACH, BED AT LOWEST HEIGHT.
--- NOTE | 2023-12-07 07:01 | P.PN_ITS ---
Subjective Narrative: Patient states he doesn't feel good . Not much appetite. Exam Data for Last 24 hours Vital signs and Labs for Last 24 Hours: Temp Pulse Resp BP Pulse Ox O2 Del Method O2 Flow Rate 99.8 F H 82 20 103/76 L 97 Room Air 2 12/07/23 04:00 12/07/23 04:00 12/07/23 04:00 12/07/23 04:00 12/07/23 04:00 12/07/23 05:00 12/05/23 04:00 Laboratory Results - last 24 hr 12/03/23 09:41: Stl Aeromonas (PCR) Not detected, Stl C. cayetanensis PCR Not detected, Stool Rotavirus (PCR) Not detected, Stl Adenov F 40/41 PCR Not detected, Stool Astrovirus (PCR) Not detected, Stool Campylobacter PCR Not detected, Stl C.difficile Tox PCR Detected A, Stool Cryptosporidium PCR Not detected, Stl E.coli Shiga Tox PCR Not detected, Stool E coli O157 PCR TNP, Stl Enterotoxigenic E PCR Not detected, Stool EPEC (PCR) Not detected, Stool EAEC (PCR) Not detected, Stl E. histolytica PCR Not detected, Stool Giardia Lamblia PCR Not detected, Stool Salmonella PCR Not detected, Stool Sapovirus (PCR) Not detected, Stl P. shigelloides PCR Not detected, Stl Shigella/EIEC PCR Not detected, St Y.enterocolitica PCR Not detected, Stool Vibrio (PCR) Not detected, Stl Vibrio cholerae PCR Not detected, Stl Norovirus GI/GII PCR Detected A 12/03/23 12:17: Crossmatch (AHG) See Detail 12/06/23 06:28: WBC 9.5, RBC 3.13 L, Hgb 10.0 L, Hct 27.7 L, MCV 88.5, MCH 31.9 H, MCHC 36.0 H, RDW 14.6, Plt Count 125 L D, MPV 8.2, Neut % (Auto) 88.6 H, Lymph % (Auto) 4.9 L, [place] % (Auto) 5.9, Eos % (Auto) 0.5, Baso % (Auto) 0.2, Neut # (Auto) 8.4 H, Lymph # (Auto) 0.5 L, [place] # (Auto) 0.6, Eos # (Auto) 0.0, Baso # (Auto) 0.0, Total Counted 100, Neutrophils % (Manual) 93 H, Band Neutrophils % 1.0, Lymphocytes % (Manual) 2 L, Monocytes % (Manual) 4, Platelet Estimate Slight decrease, Poikilocytosis 1+, Anisocytosis 1+, Microcytosis 1+, [place] Cells 1+, Sodium 123 L, Potassium 3.8 D, Chloride 97 L, Carbon Dioxide 27, Anion Gap 2.8 L, BUN 5 L, Creatinine 0.70, Estimated Creat Clear 59, Estimated GFR 110, Est GFR ( Amer) 133, Glucose 99, Calcium 7.3 L 12/06/23 20:48: POC Glucose 135 H I & O for Last 24 hours: Intake & Output 12/04/23 12/05/23 12/06/23 12/07/23 11:59 11:59 11:59 11:59 Intake Total 2684 / 2684 1781 / 1781 1100 / 1100 480 / 480 Output Total 275 / 275 1815 / 1815 1925 / 1925 2580 / 2580 Balance 2409 / 2409 -34 / -34 -825 / -825 -2100 / -2100 Weight 144 lb 13.499 oz 145 lb 1.027 oz 145 lb 1.027 oz 142 lb 4.8 oz *Routine Abdominal Exam Abdominal: Present soft Progress Note: A&P Assessment and plan (1) Lower gastrointestinal hemorrhage: Status: Acute Assessment and plan: On low residue diet. Labs pending. (2) Symptomatic anemia: Status: Acute (3) Abdominal pain: Status: Acute (4) Diverticulosis: Status: Chronic (5) Seasonal allergies: Status: Chronic (6) ILD (interstitial lung disease): Status: Chronic (7) History of colon cancer: Status: Acute (8) History of diverticulitis: Status: Acute (9) Hyperlipidemia: Status: Acute (10) Irritable bowel syndrome (IBS): Status: Acute (11) Hypotension: Status: Acute (12) Hypokalemia: Status: Acute
[2023-12-07 08:00] VITALS: BP 104/59; PULSE 80; PULSE 87; RESP 20; TEMP 37.2; O2SAT 97
--- NOTE | 2023-12-07 08:25 | P.PN_ITS ---
Subjective *Date: 12/07/23 *Time: 08:56 Interval history: Patient states he just does not feel right today. He does deny nausea. He has not vomited. He slept a little. He is on a low residue diet and is eating some. He states his bowels did move yesterday and had a little bit of blood in them. He states he always has some abdominal discomfort. He denies chest pain and shortness of breath. A.m. labs are pending. Medical Exam Vital signs and Labs for Last 24 Hours: Vital Signs Temp Pulse Pulse Resp BP Pulse Ox O2 Del Method 12/07/23 08:00 98.9 F 87 20 104/59 L 97 Room Air 12/07/23 07:00 Room Air 12/07/23 04:00 80 12/07/23 05:00 Room Air 12/07/23 04:00 99.8 F H 82 20 103/76 L 97 Room Air 12/07/23 03:00 Room Air 12/07/23 00:00 82 12/07/23 01:00 Room Air 12/06/23 23:00 Room Air 12/07/23 00:00 98.2 F 86 17 128/73 94 L Room Air 12/06/23 20:00 98.6 F 90 17 104/65 L 95 Nasal Cannula 12/06/23 21:00 Room Air 12/06/23 20:00 Room Air 12/06/23 20:00 87 12/06/23 18:16 Room Air 12/06/23 16:00 80 12/06/23 15:33 98.5 F 12/06/23 14:48 Room Air 12/06/23 12:00 75 12/06/23 16:54 Room Air 12/06/23 12:57 Room Air 12/06/23 11:17 98.5 F 12/06/23 10:35 Room Air 12/06/23 10:00 78 14 115/64 95 Room Air Intake and Output 12/06/23 12/07/23 12/07/23 19:59 03:59 11:59 Intake Total 480 / 480 250 / 730 Output Total 1000 / 1000 940 / 1940 840 / 2780 Balance -520 / -520 -940 / -1460 -590 / -2050 Intake: Intake, Oral Amount 480 / 480 250 / 730 Output: Output, Urine Amount 1000 / 1000 940 / 1940 840 / 2780 Other: Number of Voids 1 Number of Unmeasured Voids 1 0 0 Number of Bowel Movements 1 Weight 142 lb 4.8 oz Patient Weight 12/07/23 11:59 Weight 142 lb 4.8 oz Laboratory Results - last 24 hr 12/03/23 09:41: Stl Aeromonas (PCR) Not detected, Stl C. cayetanensis PCR Not detected, Stool Rotavirus (PCR) Not detected, Stl Adenov F 40/41 PCR Not detected, Stool Astrovirus (PCR) Not detected, Stool Campylobacter PCR Not detected, Stl C.difficile Tox PCR Detected A, Stool Cryptosporidium PCR Not detected, Stl E.coli Shiga Tox PCR Not detected, Stool E coli O157 PCR TNP, Stl Enterotoxigenic E PCR Not detected, Stool EPEC (PCR) Not detected, Stool EAEC (PCR) Not detected, Stl E. histolytica PCR Not detected, Stool Giardia Lamblia PCR Not detected, Stool Salmonella PCR Not detected, Stool Sapovirus (PCR) Not detected, Stl P. shigelloides PCR Not detected, Stl Shigella/EIEC PCR Not det ected, St Y.enterocolitica PCR Not detected, Stool Vibrio (PCR) Not detected, Stl Vibrio cholerae PCR Not detected, Stl Norovirus GI/GII PCR Detected A 12/03/23 12:17: Crossmatch (AHG) See Detail 12/06/23 06:28: Total Counted 100, Neutrophils % (Manual) 93 H, Band Neutrophils % 1.0, Lymphocytes % (Manual) 2 L, Monocytes % (Manual) 4, Platelet Estimate Slight decrease, Poikilocytosis 1+, Anisocytosis 1+, Microcytosis 1+, [place] Cells 1+ 12/06/23 20:48: POC Glucose 135 H I & O for Labs for Last 24 Hours: Intake & Output 12/04/23 12/05/23 12/06/23 12/07/23 11:59 11:59 11:59 11:59 Intake Total 2684 / 2684 1781 / 1781 1100 / 1100 730 / 730 Output Total 275 / 275 1815 / 1815 1925 / 1925 2780 / 2780 Balance 2409 / 2409 -34 / -34 -825 / -825 -2049 / -2049 Weight 144 lb 13.499 oz 145 lb 1.027 oz 145 lb 1.027 oz 142 lb 4.8 oz Constitutional: Present no acute distress and thin Respiratory: Present crackles (Few bibasilar crackles) Cardiac: Present Reg Rate and Rhythm GI: Present soft, tenderness (Left upper and lower mild tenderness), guarding an d normal bowel sounds; Absent distention Extremities: Absent tenderness or edema Neuro: Present alert and awake Assessment and Plan *Assessment and plan (1) Lower gastrointestinal hemorrhage: Status: Acute Category: Medical Code(s): K92.2 - Gastrointestinal hemorrhage, unspecified (2) Symptomatic anemia: Status: Acute Category: Medical Code(s): D64.9 - Anemia, unspecified (3) Abdominal pain: Status: Acute Category: Medical Code(s): R10.9 - Unspecified abdominal pain (4) Diverticulosis: Status: Chronic Category: Medical Code(s): K57.90 - Diverticulosis of intestine, part unspecified, without perforation or abscess without bleeding (5) Seasonal allergies: Status: Chronic Category: Medical Code(s): J30.2 - Other seasonal allergic rhinitis (6) ILD (interstitial lung disease): Status: Chronic Category: Medical Code(s): J84.9 - Interstitial pulmonary disease, unspecified (7) History of colon cancer: Status: Acute Category: Medical Code(s): Z85.038 - Personal history of other malignant neoplasm of large intestine (8) History of diverticulitis: Status: Acute Category: Medical Code(s): Z87.19 - Personal history of other diseases of the digestive system (9) Hyperlipidemia: Status: Acute Category: Medical Code(s): E78.5 - Hyperlipidemia, unspecified (10) Irritable bowel syndrome (IBS): Status: Acute Category: Medical Code(s): K58.9 - Irritable bowel syndrome without diarrhea (11) Hypotension: Status: Acute Category: Medical Code(s): I95.9 - Hypotension, unspecified (12) Hypokalemia: Status: Acute Category: Medical Code(s): E87.6 - Hypokalemia Plan Patient has been seen by surgeon, Dr. Lucas. He is on a low residue diet which we will continue. Labs are pending. Dr. Kang entry - Saw patient, agree with above note.
[2023-12-07] MEDS: POTASSIUM CHLORIDE 20MEQ TAB 20 MEQ PO ×3 (09:12→20:55)
[2023-12-07] MEDS: metroNIDAZOLE 500 MG TABLET PO ×3 (09:12→20:55)
[2023-12-07 09:15] LABS: Basophils % 0.1 % (0.1-2.0); Eosinophils % 0.3 % (0.1-12.0); Hematocrit 26.3 % (42.0-52.0); Hemoglobin 9.3 g/dL (14.1-18.0); Lymphocytes # 0.4 K/mm3 (0.7-4.5); Lymphocytes % 4.4 % (10-50); Mean Corpuscular HGB Conc 35.3 g/dL (31.8-35.4); Mean Corpuscular Hemoglobin 31.5 pg (27.0-31.2); Mean Corpuscular Volume 89.2 fl (80-94); Mean Platelet Volume 9.1 fl (7.4-10.4); Monocytes # 0.5 K/mm3 (0.1-1.0); Monocytes % 5.4 % (1.7-9.3); Neutrophils # 8.6 K/mm3 (1.8-7.8); Neutrophils % 89.9 % (37.0-80.0); Platelet Count 178 K/mm3 (142-424); Red Blood Count 2.94 M/mm3 (4.60-6.20); Red Cell Distribution Width 14.8 % (11.5-17.5); White Blood Count 9.6 K/mm3 (4.8-10.8)
[2023-12-07 09:21] LABS: Chloride 93 mmol/L (98-107); MANUAL DIFFERENTIAL MANUAL DIFFERENTIAL (MANUAL DIFF); Potassium 3.9 mmoL/L (3.5-5.1)
[2023-12-07 09:24] LABS: Blood Urea Nitrogen 7 mg/dl (9-20); Calcium 7.6 mg/dl (8.4-10.2); Carbon Dioxide 29 mmol/L (22.0-30.0); Creatinine Clearance Estimated 58 mL/min (50-200); Estimated Glomerular Filt Rate 110 ml/min (>60); GFR (African American) 133 ML/MIN (>60); Glucose 150 mg/dl (74-100)
[2023-12-07 10:29] LABS: Lymphocytes % 3 % (10-50); Monocytes % 6 % (2-9); Neutrophils % 91 % (42-76); Total Cells Counted 100
[2023-12-07 10:30] LABS: Platelet Estimate Normal; RBC Morphology Normal
[2023-12-07 11:47] LABS: Anion Gap 3.9 mEq/L (5-15); Sodium 122 mmol/L (136-145)
[2023-12-07 12:00] VITALS: BP 119/76; PULSE 83; RESP 22; TEMP 36.9; O2SAT 95
[2023-12-07 16:00] VITALS: BP 117/69; PULSE 81; RESP 18; TEMP 37; O2SAT 96
--- NOTE | 2023-12-07 18:07 | PC.NURSE ---
A&OX4. TOLERATING RA WELL. PT HAS HAD NO C/O THUS FAR THIS SHIFT. HAS HAD NO SIGNS OF BLEEDING THUS FAR. HAS REMAINED IN BED T/O SHIFT. PT HAS TOLERATED DIET WELL. VSS.
--- NOTE | 2023-12-07 19:03 | PC.NURSE ---
LARGE BLOODY BM NOTED AT THIS TIME.
[2023-12-07 20:00] VITALS: BP 123/64; PULSE 85; RESP 20; TEMP 37.2; O2SAT 96
[2023-12-07] MEDS: PANTOPRAZOLE 40MG TABLET 40 MG PO (20:55)
[2023-12-07] MEDS: ATORVASTATIN 20MG TABLET 20 MG PO (20:55)
[2023-12-08] VITALS: BP 123/63; PULSE 83; RESP 20; TEMP 36.8; O2SAT 94
[2023-12-08 04:00] VITALS: BP 140/77; PULSE 84; RESP 18; TEMP 36.7; O2SAT 96; BMI 22.8
--- NOTE | 2023-12-08 05:17 | PC.NURSE ---
Pt has had no complaints this shift. Pt is continuing to have soft, dark red stools throughout shift. Pt has not slept much this shift, but has been quietly resting. VSS.
[2023-12-08 08:00] VITALS: BP 127/75; PULSE 83; RESP 16; TEMP 36.6; O2SAT 96
--- NOTE | 2023-12-08 08:02 | EXP.SURG.PN ---
Subjective Narrative: Patient states that he may have had some slight nausea. He had concerns that he had recurrent bleeding last night. Exam Data for Last 24 hours Vital signs and Labs for Last 24 Hours: Temp Pulse Resp BP Pulse Ox O2 Del Method O2 Flow Rate 98.1 F 84 18 140/77 96 Room Air 3 12/08/23 04:00 12/08/23 04:00 12/08/23 04:00 12/08/23 04:00 12/08/23 04:00 12/08/23 06:41 12/08/23 04:00 Laboratory Results - last 24 hr 12/07/23 09:04: WBC 9.6, RBC 2.94 L, Hgb 9.3 L, Hct 26.3 L, MCV 89.2, MCH 31.5 H, MCHC 35.3, RDW 14.8, Plt Count 178 D, MPV 9.1, Neut % (Auto) 89.9 H, Lymph % (Auto) 4.4 L, [place] % (Auto) 5.4, Eos % (Auto) 0.3, Baso % (Auto) 0.1, Neut # (Auto) 8.6 H, Lymph # (Auto) 0.4 L, [place] # (Auto) 0.5, Eos # (Auto) 0.0, Baso # (Auto) 0.0, Total Counted 100, Neutrophils % (Manual) 91 H, Lymphocytes % (Manual) 3 L, Monocytes % (Manual) 6, Platelet Estimate Normal, RBC Morphology Normal, Sodium 122 L, Potassium 3.9, Chloride 93 L, Carbon Dioxide 29, Anion Gap 3.9 L, BUN 7 L D, Creatinine 0.70, Estimated Creat Clear 58, Estimated GFR 110, Est GFR ( Amer) 133, Glucose 150 H, Calcium 7.6 L I & O for Last 24 hours: Intake & Output 12/05/23 12/06/23 12/07/23 12/08/23 11:59 11:59 11:59 11:59 Intake Total 1781 / 1781 1100 / 1100 730 / 730 600 / 600 Output Total 1815 / 1815 1925 / 1925 2905 / 3180 1255 / 1255 Balance -34 / -34 -825 / -825 -2175 / -2450 -655 / -655 Weight 145 lb 1.027 oz 145 lb 1.027 oz 142 lb 4.8 oz 137 lb 4 oz *Routine Abdominal Exam Abdominal: Present soft Progress Note: A&P Assessment and plan (1) Lower gastrointestinal hemorrhage: Status: Acute Assessment and plan: Labs pending today. If stable and reasonable likely discharge. (2) Symptomatic anemia: Status: Acute (3) Abdominal pain: Status: Acute (4) Diverticulosis: Status: Chronic (5) Seasonal allergies: Status: Chronic (6) ILD (interstitial lung disease): Status: Chronic (7) History of colon cancer: Status: Acute (8) History of diverticulitis: Status: Acute (9) Hyperlipidemia: Status: Acute (10) Irritable bowel syndrome (IBS): Status: Acute (11) Hypotension: Status: Acute (12) Hypokalemia: Status: Acute
[2023-12-08] MEDS: metroNIDAZOLE 500 MG TABLET PO (08:03)
[2023-12-08] MEDS: POTASSIUM CHLORIDE 20MEQ TAB 20 MEQ PO (08:03)
[2023-12-08 08:05] LABS: Basophils % 0.1 % (0.1-2.0); Eosinophils # 0.1 K/mm3 (0.0-0.4); Hemoglobin 9.8 g/dL (14.1-18.0); Lymphocytes # 0.6 K/mm3 (0.7-4.5); Lymphocytes % 8.2 % (10-50); Mean Corpuscular HGB Conc 35.1 g/dL (31.8-35.4); Mean Corpuscular Hemoglobin 31.5 pg (27.0-31.2); Mean Corpuscular Volume 89.7 fl (80-94); Mean Platelet Volume 8.7 fl (7.4-10.4); Monocytes # 0.6 K/mm3 (0.1-1.0); Monocytes % 7.7 % (1.7-9.3); Neutrophils # 6.3 K/mm3 (1.8-7.8); Neutrophils % 83.1 % (37.0-80.0); Platelet Count 254 K/mm3 (142-424); Red Blood Count 3.13 M/mm3 (4.60-6.20); Red Cell Distribution Width 14.9 % (11.5-17.5); White Blood Count 7.6 K/mm3 (4.8-10.8)
[2023-12-08 08:20] LABS: Chloride 93 mmol/L (98-107); Potassium 4.1 mmoL/L (3.5-5.1); Sodium 123 mmol/L (136-145)
[2023-12-08 08:23] LABS: Anion Gap 6.1 mEq/L (5-15); Blood Urea Nitrogen 7 mg/dl (9-20); Carbon Dioxide 28 mmol/L (22.0-30.0); Creatinine Clearance Estimated 56 mL/min (50-200); Estimated Glomerular Filt Rate 110 ml/min (>60); GFR (African American) 133 ML/MIN (>60); Glucose 113 mg/dl (74-100)
[2023-12-08 08:24] LABS: Calcium 7.9 mg/dl (8.4-10.2)
--- NOTE | 2023-12-08 08:35 | EXP.ACUTE.PN ---
Subjective *Date: 12/08/23 *Time: 08:53 Interval history: Patient states he does not feel very well today. He is able to eat but has a little bit of nausea. He has not vomited. He states he does not know if his bowels are moving because he wears a diaper and he does not know if he has had any stool. He is voiding QS. He has not been out of bed. He states he normally walks 30 minutes on a treadmill every day. He denies chest pain and shortness of breath. He has been seen by Dr. Lucas. Blood counts have been stable. Medical Exam Vital signs and Labs for Last 24 Hours: Vital Signs Temp Pulse Resp BP Pulse Ox O2 Del Method O2 Flow Rate 12/08/23 08:00 97.9 F 83 16 127/75 96 Room Air 12/08/23 06:41 Room Air 12/08/23 05:00 Room Air 12/08/23 04:00 98.1 F 84 18 140/77 96 Nasal Cannula 3 12/08/23 02:39 Room Air 12/08/23 00:00 98.2 F 83 20 123/63 94 L Nasal Cannula 3 12/08/23 00:37 Room Air 12/07/23 22:41 Room Air 12/07/23 21:00 Room Air 12/07/23 20:00 Room Air 12/07/23 20:00 99.0 F 85 20 123/64 96 Nasal Cannula 3 12/07/23 18:43 Room Air 12/07/23 16:47 Room Air 12/07/23 16:00 98.6 F 81 18 117/69 96 Room Air 12/07/23 15:00 Room Air 12/07/23 12:40 Room Air 12/07/23 12:00 98.5 F 83 22 119/76 95 Room Air 12/07/23 10:36 Room Air 12/07/23 09:00 Room Air Intake and Output 12/07/23 12/08/23 12/08/23 19:59 03:59 11:59 Intake Total 600 / 600 240 / 840 Output Total 705 / 705 450 / 1155 350 / 1505 Balance -105 / -105 -450 / -555 -110 / -665 Intake: Intake, Oral Amount 600 / 600 240 / 840 Output: Output, Urine Amount 705 / 705 450 / 1155 350 / 1505 Other: Number of Unmeasured Voids 0 0 1 Number of Bowel Movements 1 1 Weight 137 lb 4 oz Patient Weight 12/08/23 11:59 Weight 137 lb 4 oz Laboratory Results - last 24 hr 12/07/23 09:04: WBC 9.6, RBC 2.94 L, Hgb 9.3 L, Hct 26.3 L, MCV 89.2, MCH 31.5 H, MCHC 35.3, RDW 14.8, Plt Count 178 D, MPV 9.1, Neut % (Auto) 89.9 H, Lymph % (Auto) 4.4 L, [place] % (Auto) 5.4, Eos % (Auto) 0.3, Baso % (Auto) 0.1, Neut # (Auto) 8.6 H, Lymph # (Auto) 0.4 L, [place] # (Auto) 0.5, Eos # (Auto) 0.0, Baso # (Auto) 0.0, Total Counted 100, Neutrophils % (Manual) 91 H, Lymphocytes % (Manual) 3 L, Monocytes % (Manual) 6, Platelet Estimate Normal, RBC Morphology Normal, Sodium 122 L, Potassium 3.9, Chloride 93 L, Carbon Dioxide 29, Anion Gap 3.9 L, BUN 7 L D, Creatinine 0.70, Estimated Creat Clear 58, Estimated GFR 110, Est GFR ( Amer) 133, Glucose 150 H, Calcium 7.6 L 12/08/23 07:52: WBC 7.6, RBC 3.13 L, Hgb 9.8 L, Hct 28.0 L, MCV 89.7, MCH 31.5 H, MCHC 35.1, RDW 14.9, Plt Count 254 D, MPV 8.7, Neut % (Auto) 83.1 H, Lymph % (Auto) 8.2 L, [place] % (Auto) 7.7, Eos % (Auto) 1.0, Baso % (Auto) 0.1, Neut # (Auto) 6.3, Lymph # (Auto) 0.6 L, [place] # (Auto) 0.6, Eos # (Auto) 0.1, Baso # (Auto) 0.0, Sodium 123 L, Potassium 4.1, Chloride 93 L, Carbon Dioxide 28, Anion Gap 6.1, BUN 7 L, Creatinine 0.70, Estimated Creat Clear 56, Estimated GFR 110, Est GFR ( Amer) 133, Glucose 113 H D, Calcium 7.9 L I & O for Labs for Last 24 Hours: Intake & Output 12/05/23 12/06/23 12/07/23 12/08/23 11:59 11:59 11:59 11:59 Intake Total 1781 / 1781 1100 / 1100 730 / 730 840 / 840 Output Total 1815 / 1815 1925 / 1925 2905 / 2905 1505 / 1505 Balance -34 / -34 -825 / -825 -2175 / -2175 -665 / -665 Weight 145 lb 1.027 oz 145 lb 1.027 oz 142 lb 4.8 oz 137 lb 4 oz Constitutional: Present no acute distress Comment:: Sitting up in the bed and appears comfortable. Respiratory: Present CTA bilaterally (Anteriorly and posteriorly) Cardiac: Present Reg Rate and Rhythm GI: Present soft and normal bowel sounds; Absent distention or tenderness Extremities: Absent tenderness, edema or calf tenderness Neuro: Present alert, awake and oriented x 3 Assessment and Plan *Assessment and plan (1) Lower gastrointestinal hemorrhage: Status: Acute Category: Medical Code(s): K92.2 - Gastrointestinal hemorrhage, unspecified (2) Symptomatic anemia: Status: Acute Category: Medical Code(s): D64.9 - Anemia, unspecified (3) Abdominal pain: Status: Acute Category: Medical Code(s): R10.9 - Unspecified abdominal pain (4) Diverticulosis: Status: Chronic Category: Medical Code(s): K57.90 - Diverticulosis of intestine, part unspecified, without perforation or abscess without bleeding (5) Seasonal allergies: Status: Chronic Category: Medical Code(s): J30.2 - Other seasonal allergic rhinitis (6) ILD (interstitial lung disease): Status: Chronic Category: Medical Code(s): J84.9 - Interstitial pulmonary disease, unspecified (7) History of colon cancer: Status: Acute Category: Medical Code(s): Z85.038 - Personal history of other malignant neoplasm of large intestine (8) History of diverticulitis: Status: Acute Category: Medical Code(s): Z87.19 - Personal history of other diseases of the digestive system (9) Hyperlipidemia: Status: Acute Category: Medical Code(s): E78.5 - Hyperlipidemia, unspecified (10) Irritable bowel syndrome (IBS): Status: Acute Category: Medical Code(s): K58.9 - Irritable bowel syndrome without diarrhea (11) Hypotension: Status: Acute Category: Medical Code(s): I95.9 - Hypotension, unspecified (12) Hypokalemia: Status: Acute Category: Medical Code(s): E87.6 - Hypokalemia (13) Hyponatremia: Status: Acute Category: Medical Code(s): E87.1 - Hypo-osmolality and hyponatremia Plan Will consult with physical therapy to evaluate. Sodium has improved slightly today to 123 with a potassium of 4.1. Renal function is good. Hemoglobin is 9.8 and hematocrit is 28. Dr. Kang entry - Saw patient, agree with above note. OOB today.
--- NOTE | 2023-12-08 10:33 | HMH.PTEV ---
Physical Therapy Evaluation Rehab PT IP Evaluation Start: 12/08/23 08:32 Freq: ONCE Status: Active Protocol: Document 12/08/23 10:28 SHASHI (Rec: 12/08/23 10:32 SHASHI [id number]) Subjective/History History History 73 yowm adm to [facility] with Lower GIB. He is now S/P colonoscopy with hemostatic clipping. He has PMH of colon cancer with resection, diverticulitis, HLD , ILD. He reports he lives with daughter, 2-3 ARIANNA the home, and he is generally independent without AD at baseline for all mobility. Subjective Subjective Pt reports feeling weak in general vs his baseline, but overall better since admission . He agrees to mobility assessment. He does report B LE neuropathy in his feet at baseline. New diagnosis of cancer in past 12 No months? Rehab PT IP Eval Objective Appearance Patient Behavior Appropriate Patient Orientation Person,Place,Time Difficulty following instructions none Speech Pattern Clear Ambulation Patient Able to Ambulate Yes Ambulation Observation IP General Gait Pattern Observation Shuffling Step Ambulation Distance (feet) 25 Ambulation Assistive Device None Ambulation Ability Supervision/Stand by Balance Ability to Arise Able, uses arms to help Sitting Balance Steady, safe Standing Balance Steady, wide stance Dynamic Sitting Balance Ability Good Dynamic Standing Balance Ability Fair Transfers Bed Transfer Ability Supervision/Stand by Chair Transfer Ability Supervision/Stand by Sit to Stand Bed Transfer Ability Supervision/Stand by Sit to Stand Chair Transfer Ability Supervision/Stand by ROM All Extremities PT ROM Status WFL MMT All Extremities PT MMT WFL Rehab PT IP prob,goals,plan Problems Date of Evaluation: 12/08/23 Discharge Plan PT Discharge Plan Pt is appropriate to return home once medically stable for d/c. Recommend home health therapy after d/c. Eval Complexity Eval Charge Codes 59883 - High Complexity PHYSICIAN CERTIFICATION: I certify the specified therapy services for Christian Owen are required, authorized, and reviewed every 30 days.
[2023-12-08 11:13] VITALS: BP 116/72; PULSE 84; RESP 17; TEMP 36.7; O2SAT 99
--- NOTE | 2023-12-08 13:20 | SW/DCPLANNER ---
Addendum entered by Mirian Fernandez 12/08/23 14:03: Avril carranza/ [facility] stated that services will start for this patient tomorrow. Original Note: I received a consult regarding home health services for this patient. PT evaluated patient and recommended returning home w/ home health. Patient prefers to use [facility]: information/order has been faxed. Patient will discharge home later today.
--- NOTE | 2023-12-09 11:24 | CARE MANAGER ---
Contacted patient related to hospital discharge. He states that he has his new medications and is aware of follow up appointment. Patient states that he is very tired and cannot do much walking without having to rest. He states this is not worse since discharge, but is the same. He denies any other questions. Home health is supposed to be there to see him today around lunch time.
--- NOTE | 2023-12-13 22:52 | EXP.DC.SUM ---
General Admission date:: 12/03/23 Discharge date: 12/08/23 HPI HPI HPI: Patient is a 73-year-old male whom I have followed for quite some time and is well-known to me. He had undergone low anterior resection by Dr. Pollo Mariscal in November 2010 for rectal carcinoma and had a loop ileostomy at that time which was ultimately reversed. Patient had developed a small bowel obstruction in the distal ileum and underwent laparotomy with small bowel resection in October [address] Sy. He has had multiple subsequent colonoscopies revealing diverticulosis. Patient has had some problems with bowel irregularity for some time potentially partially due to the profoundly low coloanal anastomosis. He has had problems with intermittent rectal bleeding for many years, likely greater than 15 years. He has had numerous colonoscopies and evaluations for rectal bleeding. I had last performed colonoscopy on 01/09/2023 after he had presented to the emergency department with rectal bleeding and was referred. He was found to have evidence of colorectal anastomosis about 6 cm from the anus with visible staple and findings of pandiverticulosis. It was felt that potentially a source of his bleeding may be this irritated somewhat loose stable from his prior anastomosis and I had planned for transanal removal and oversewing of this but the patient declined. Apparently the patient had contacted the office several days ago after he had developed rectal bleeding on 12/01/2023. He was scheduled to be seen in the office today. However, he presented to the emergency department due to the bleeding and weakness. He did undergo CTA of the abdomen which revealed no evidence of any obvious active bleeding. He was found to have hemoglobin of 9.5. 1 year ago hemoglobin was 12.6. After the patient had been in the emergency department for several hours he had repeat H&H performed which revealed hemoglobin of 7.7. (above as per Dr. Lucas) The patient complains of some pain in the lower abdomen. He noticed bleeding on Thursday, he passed no stool on Thursday, he then began passing blood again today. He felt weak and dizzy which is why he presented to the ER. Hospital Course Hospital Course Hospital Course: The patient's abdominal/pelvic CTA was unremarkable. He was admitted and 3 units of blood were ordered. Dr. Lucas felt given his prior history the GI blood loss could be diverticular or secondary to irritation from his prior low anterior resection. He wanted to perform a flexible sigmoidoscopy. By 12/04/2023, he had several large bloody bowel movements and became hypotensive. He was transferred to the stepdown unit and given 2 more liters of blood as well as 2 L of normal saline. He ended up needing 3 units before his endoscopy. Dr. Lucas performed an EGD and a total colonoscopy to the terminal ileum. He found mild esophageal dysmotility, a small to moderate hiatal hernia, and normal gastric lumen and duodenum. There was a large amount of clotted blood within the colon which was essentially evacuated. There was some thin bloody liquid in the terminal ileum and it was unclear if this was due to small bowel etiology or reflux into the terminal ileum. There was significant diverticuli mostly on the left side. It was felt it had a diverticular bleed which had ceased. Dr. Lucas recommended close monitoring of his hemoglobin. He continued to have some bloody stools and then had a syncopal episode on 12/04/23. He was given a fluid bolus and a repeat CT angiogram was ordered due to the probability of ongoing bleeding. While awaiting the report a code was called as he became hypotensive and bradycardic. Radiology called with a critical value on his repeat CT angiogram which revealed extravasation consistent with active bleeding at the hepatic flexure of the colon. He was resuscitated and arrangements were made for transfusion. Plans were made for repeat colonoscopy expeditiously. Dr. Lucas took him back to the OR and performed a colonoscopy to the right colon with control of active bleeding using injection of epinephrine and a Hemoclip. By 12/05/2023, he was feeling better. His potassium was replaced. He continued to have some watery bloody stools but denied any pain. His hemoglobin remained stable. His diet was advanced. His potassium normalized he had a stool panel that returned positive for C. difficile and norovirus. He was started on metronidazole. He was advanced to a low residue diet. His H&H was stable and it was felt he could be discharged home. He will follow-up with both Dr. Lucas and Dr. Barksdale Exam Data for Last 24 hours Vital signs and Labs for Last 24 Hours: Temp Pulse Resp BP Pulse Ox O2 Del Method O2 Flow Rate 98.0 F 84 17 116/72 99 Room Air 3 12/08/23 11:13 12/08/23 11:13 12/08/23 11:13 12/08/23 11:13 12/08/23 11:13 12/08/23 13:00 12/08/23 04:00 Narrative: Constitutional Constitutional: no acute distress *Routine HEENT Exam Head: Present normocephalic and atraumatic Eye: Present EOMI and PERRL ENT: Present mucous membranes moist *Routine Neck Exam Neck: Present supple and full ROM *Routine Respiratory Exam Respiratory: Present CTA bilaterally *Routine Cardiovascular Exam Cardiovascular: Present RRR *Routine Abdominal Exam Abdominal: Present soft, normoactive bowel sounds and tenderness (bilateral lower quadrants); Absent distended *Routine Rectal Exam Rectal:: deferred *Routine Genitalia Exam Genitalia:: deferred *Routine Extremities Exam Extremities: Absent cyanosis, clubbing or edema *Routine Skin Exam Skin: Present intact; Absent erythema *Routine Neurological Exam Neurological: Present alert and oriented X3 DS: Diagnosis Discharge Diagnosis (1) Lower gastrointestinal hemorrhage: Status: Acute Code(s): K92.2 - Gastrointestinal hemorrhage, unspecified (2) Symptomatic anemia: Status: Acute Code(s): D64.9 - Anemia, unspecified (3) Abdominal pain: Status: Acute Code(s): R10.9 - Unspecified abdominal pain (4) Diverticulosis: Status: Chronic Code(s): K57.90 - Diverticulosis of intestine, part unspecified, without perforation or abscess without bleeding (5) Seasonal allergies: Status: Chronic Code(s): J30.2 - Other seasonal allergic rhinitis (6) ILD (interstitial lung disease): Status: Chronic Code(s): J84.9 - Interstitial pulmonary disease, unspecified (7) History of colon cancer: Status: Acute Code(s): Z85.038 - Personal history of other malignant neoplasm of large intestine (8) History of diverticulitis: Status: Acute Code(s): Z87.19 - Personal history of other diseases of the digestive system (9) Hyperlipidemia: Status: Acute Code(s): E78.5 - Hyperlipidemia, unspecified (10) Irritable bowel syndrome (IBS): Status: Acute Code(s): K58.9 - Irritable bowel syndrome without diarrhea (11) Hypotension: Status: Acute Code(s): I95.9 - Hypotension, unspecified (12) Hypokalemia: Status: Acute Code(s): E87.6 - Hypokalemia (13) Hyponatremia: Status: Acute Code(s): E87.1 - Hypo-osmolality and hyponatremia Meds Home Medications and Allergies Home Medications Medication Instructions Recorded Confirmed Type atorvastatin 20 mg tablet 20 mg PO HS 05/03/19 12/03/23 History acetaminophen 325 mg tablet 650 mg PO TID PRN As Needed For 05/04/19 12/03/23 History Fever Or Pain ergocalciferol (vitamin D2) 10 mcg 2,000 unit PO DAILY Supplement 05/04/19 12/03/23 History (400 unit) tablet [id number] C-Mn 750 1 each PO DAILY Supplement 05/04/19 12/03/23 History mg-600 mg-55 mg-5 mg tablet multivitamin 1 each PO DAILY Supplement 05/04/19 12/03/23 History omeprazole 40 mg capsule,delayed 40 mg PO DAILY 05/16/19 12/03/23 History release saw palmetto 450 mg-zinc 1 each PO DAILY Supplement 05/14/21 12/03/23 History picolinate 15 mg capsule lisinopril 5 mg tablet 2.5 mg PO DAILY 04/30/23 12/03/23 History azelastine 137 mcg (0.1 %) nasal 2 spray intranasal BID #30 mL 08/20/23 12/03/23 Rx spray aerosol duloxetine 30 mg capsule,delayed 30 mg PO HS 12/03/23 12/03/23 History release gabapentin 300 mg capsule 300 mg PO BID 12/03/23 12/03/23 History montelukast 10 mg tablet 10 mg PO HS 12/03/23 12/03/23 History ferrous sulfate 325 mg (65 mg 325 mg PO BID #60 tabs 12/08/23 Rx iron) tablet metronidazole 500 mg tablet 500 mg PO TID #30 tabs 12/09/23 Rx New Prescriptions to Start Prescriptions: ferrous sulfate [place],Jimbo metronidazole [place],Jimbo Allergies Allergy/AdvReac Type Severity Reaction Status Date / Time ciprofloxacin [From CIPRO] Allergy Mild Unknown Verified 12/03/23 15:27 allergy reaction Discharge Plan Disposition Patient Disposition: Home Health Service Condition: Good Discharge Order Discharge Orders: Discharge Order (Routine); Ordered 12/08/23 Ordered By: Jimbo Kang Follow up Plan Follow up with: Alex Lucas MD [Staff Physician] - 12/17/23 9:30 am Vladimir Barksdale MD [Primary Care Provider] - 12/15/23 2:30 pm Prescriptions/Medication Reconciliation: New ferrous sulfate 325 mg (65 mg iron) tablet 325 mg PO BID Qty: 60 2RF metronidazole 500 mg tablet 500 mg PO TID Qty: 30 0RF Continued lisinopril 5 mg tablet 2.5 mg PO DAILY Patient Comments: TAKE 1/2 (ONE-HALF) TABLET BY MOUTH ONCE DAILY azelastine 137 mcg (0.1 %) aerosol,spray 2 spray intranasal BID Qty: 30 2RF Rx Instructions: administer into each nostril atorvastatin 20 MG tablet 20 mg PO HS multivitamin 1 EACH tablet 1 each PO DAILY acetaminophen 325 MG tablet 650 mg PO TID PRN (Reason: As Needed For Fever Or Pain) ergocalciferol (vitamin D2) 400 UNIT tablet 2,000 unit PO DAILY ucdnnzfhymx-qgaufwgqs-efb C-Mn 1 EACH tablet 1 each PO DAILY omeprazole 40 MG capsule,delayed release(DR/EC) 40 mg PO DAILY saw palmetto-zinc picolinate 1 EACH capsule 1 each PO DAILY gabapentin 300 mg capsule 300 mg PO BID Patient Comments: TAKE 1 CAPSULE BY MOUTH TWICE DAILY FOR 30 DAYS duloxetine 30 mg capsule,delayed release(DR/EC) 30 mg PO HS Patient Comments: TAKE 1 CAPSULE BY MOUTH AT NIGHT FOR PAIN DEPRESSION AND SLEEP montelukast 10 mg tablet 10 mg PO HS Problem Reconciliation Problems Reviewed?: Yes Patient Discharge Instructions ACTIVITY: Continue current activity DIET: advance to your usual diet Additional Instructions: Home health for physical therapy Patient Instructions: DI for Antibiotic -- associated Colitis -- C difficile, DI for Gastrointestinal Bleeding, DI for Norovirus Infection, Clostridium difficile Infection Providers Primary Care Provider: Vladimir Barksdale Admit Provider: Jimbo Kang Attending Provider: Jimbo Kang
== END 2023-12-08 14:14 | disposition home health service (06) | DRG 378 ==
LOC: ER 12:03 → 2ND 12:40
PROVIDERS: Surgery; Admitting Provider Family Medicine; Emergency Provider Emergency Medicine; PCP Family Medicine; Visit Provider Family Medicine
PROC: 0DJ08ZZ Inspection of Upper Intestinal Tract, Via Natural or Artificial Opening Endoscopic (ICD-10-PCS; CPT 43235; principal; 2023-12-04 08:05)
PROC: 0DJD8ZZ Inspection of Lower Intestinal Tract, Via Natural or Artificial Opening Endoscopic (ICD-10-PCS; CPT 45378; principal; 2023-12-04 20:00)
DX: K57.31 Diverticulosis of large intestine without perforation or abscess with bleeding (principal); A04.72 Enterocolitis due to Clostridium difficile, not specified as recurrent; A08.11 Acute gastroenteropathy due to Norwalk agent; J84.9 Interstitial pulmonary disease, unspecified; D62 Acute posthemorrhagic anemia; K62.5 Hemorrhage of anus and rectum; D64.9 Anemia, unspecified; J30.2 Other seasonal allergic rhinitis; Z85.038 Personal history of other malignant neoplasm of large intestine; Z87.19 Personal history of other diseases of the digestive system; E78.5 Hyperlipidemia, unspecified; K58.9 Irritable bowel syndrome, unspecified; I95.9 Hypotension, unspecified; F41.9 Anxiety disorder, unspecified; F32.A Depression, unspecified; J84.10 Pulmonary fibrosis, unspecified; Z85.048 Personal history of other malignant neoplasm of rectum, rectosigmoid junction, and anus; E87.6 Hypokalemia; E86.9 Volume depletion, unspecified
CPT/HCPCS: 45382; 43235; 36415; 74174; 80048; 80053; 81001; 82272; 82962; 85007; 85014; 85018; 85025; 85610; 85730; 86850; 87507; 93005; 97163; 99285; G0328; J2405; P9016; Q9967

== ENCOUNTER 2023-12-17 09:42 | Outpatient (CLI) | payer MEDICARE, OTHER, SELFPAY ==
[2023-12-17 10:03] LABS: Basophils % 0.2 % (0.1-2.0); Eosinophils % 0.5 % (0.1-12.0); Hematocrit 31.1 % (42.0-52.0); Hemoglobin 10.2 g/dL (14.1-18.0); Lymphocytes # 0.8 K/mm3 (0.7-4.5); Lymphocytes % 9.8 % (10-50); Mean Corpuscular HGB Conc 32.7 g/dL (31.8-35.4); Mean Corpuscular Hemoglobin 30.2 pg (27.0-31.2); Mean Corpuscular Volume 92.3 fl (80-94); Mean Platelet Volume 7.9 fl (7.4-10.4); Monocytes # 0.5 K/mm3 (0.1-1.0); Monocytes % 6.6 % (1.7-9.3); Neutrophils # 6.7 K/mm3 (1.8-7.8); Neutrophils % 82.8 % (37.0-80.0); Platelet Count 627 K/mm3 (142-424); Red Blood Count 3.37 M/mm3 (4.60-6.20)
[2023-12-17 10:59] LABS: Anion Gap 6.9 mEq/L (5-15); Blood Urea Nitrogen 6 mg/dl (9-20); Calcium 8.6 mg/dl (8.4-10.2); Carbon Dioxide 30 mmol/L (22.0-30.0); Chloride 96 mmol/L (98-107); Estimated Glomerular Filt Rate 110 ml/min (>60); GFR (African American) 133 ML/MIN (>60); Glucose 90 mg/dl (74-100); Potassium 3.9 mmoL/L (3.5-5.1); Sodium 129 mmol/L (136-145)
== END 2023-12-17 23:59 ==
LOC: LAB 09:43
PROVIDERS: PCP Family Medicine; Visit Provider Surgery
DX: K92.2 Gastrointestinal hemorrhage, unspecified (principal)
CPT/HCPCS: 36415; 80048; 85025

== ENCOUNTER 2024-10-24 12:48 | Outpatient (CLI) | payer MEDICARE, SELFPAY ==
[2024-10-24 13:40] VITALS: PULSE 84; PULSE 87
[2024-10-24] MEDS: ALBUTEROL 0.083% 2.5 MG/3 ML NEB IH (13:40)
== END 2024-10-24 23:59 | disposition home or self-care (01) ==
PROVIDERS: PCP Family Medicine; Visit Provider Internal Medicine Pulmonary Disease
DX: R06.02 Shortness of breath (principal)
CPT/HCPCS: 94060; 94618; 94640; 94726; 94729; J7613

== ENCOUNTER 2024-11-23 09:08 | Outpatient (CLI) | payer MEDICARE, SELFPAY | END 2024-11-23 23:59 | disposition home or self-care (01) | LOC: LAB 09:09 | PROVIDERS: PCP Family Medicine; Visit Provider Nurse Practitioner Family | DX: K58.9 Irritable bowel syndrome, unspecified (principal) | CPT/HCPCS: 82656 ==